=== PATIENT | male | born 1960 | race Caucasian/White ===

== ENCOUNTER → 2017-12-03 14:15 | Outpatient (REF) | payer BC, SELFPAY ==
[2017-12-03 17:59] LABS: Basophils % 0.3 % (0.1-2.0); Eosinophils # 0.1 K/mm3 (0.0-0.4); Eosinophils % 2.2 % (0.1-12.0); Hematocrit 53.3 % (42.0-52.0); Hemoglobin 17.4 g/dL (14.1-18.0); Lymphocytes # 2.2 K/mm3 (0.7-4.5); Lymphocytes % 33.7 K/mm3 (10-50); Mean Corpuscular HGB Conc 32.7 g/dL (31.8-35.4); Mean Corpuscular Hemoglobin 29.5 pg (27.0-31.2); Mean Corpuscular Volume 90.1 fl (80-94); Mean Platelet Volume 7.6 fl (7.4-10.4); Monocytes # 0.6 K/mm3 (0.1-1.0); Monocytes % 9.5 % (1.7-9.3); Neutrophils # 3.5 K/mm3 (1.8-7.8); Neutrophils % 54.3 % (37.0-80.0); Platelet Count 203 K/mm3 (142-424); Red Blood Count 5.91 M/mm3 (4.60-6.20); Red Cell Distribution Width 12.7 % (11.5-17.5); White Blood Count 6.5 K/mm3 (4.8-10.8)
[2017-12-03 18:24] LABS: Alanine Aminotransferase 183 U/L (12-78); Albumin Level 4.3 gm/dL (3.4-5.0); Albumin/Globulin Ratio 1.4 (1.1-1.8); Alkaline Phosphatase 76 U/L (46-116); Anion Gap 10.1 mEq/L (5-15); Aspartate Amino Transferase 108 U/L (15-37); Bilirubin,Total 0.8 mg/dL (0.2-1.0); Blood Urea Nitrogen 12 mg/dL (7-18); Calcium 8.8 mg/dL (8.5-10.1); Carbon Dioxide 29 mmol/L (21.0-32.0); Chloride 99 mmol/L (98-107); Chol/HDL Ratio 4.7 (1-3.5); Cholesterol 212 mg/dL (140-200); Creatinine,Serum 0.83 mg/dL (0.70-1.30); Estimated Glomerular Filt Rate 95 ml/min (>60); GFR (African American) 116 ML/MIN (>60); Globulin 3.1 gm/dl (1.3-3.2); Glucose 235 mg/dL (74-106); HDL Cholesterol 45 mg/dL (27-67); LDL Cholesterol 138 mg/dL (0-130); Potassium 4.1 mmoL/L (3.5-5.1); Sodium 134 mmol/L (136-145); T4 (Thyroxine) 9.9 ug/dl (4.7-13.3); Total Protein,Serum 7.4 gm/dL (6.4-8.2); Triglycerides 143 mg/dL (30-200); VLDL Cholesterol 29 mg/dL (0-40)
[2017-12-04 16:29] LABS: Hemoglobin A1C 9.7 % (0.0-7.0)
[2017-12-05 12:25] LABS: PSA, Free 0.11 ng/mL; Prostate Specific Ag 0.5 ng/mL (0.0-4.0); Vitamin D 25 Hydroxy 20.7 ng/mL (30.0-100.0)
[2017-12-07 02:13] LABS: Hep A Ab, IgM Negative (Negative); Hepatitis B Core Antibody IgM Negative (Negative); Hepatitis B Surface Antigen Negative (Negative)
[2017-12-07 11:42] LABS: Hepatitis C Antibody <0.1 s/co ratio (0.0-0.9)
== END ==
LOC: LAB 14:15
PROVIDERS: Visit Provider Physician Assistant
DX: R03.0 Elevated blood-pressure reading, without diagnosis of hypertension (principal); Z00.00 Encounter for general adult medical examination without abnormal findings
CPT/HCPCS: 80053; 80061; 80074; 82652; 83036; 84153; 84154; 84436; 84443; 85025

== ENCOUNTER → 2017-12-03 15:26 | Outpatient (CLI) | payer BC, SELFPAY | PROVIDERS: Visit Provider Physician Assistant | DX: R73.9 Hyperglycemia, unspecified (principal); R94.5 Abnormal results of liver function studies | CPT/HCPCS: 80074; 83036 ==

== ENCOUNTER → 2019-03-27 16:39 | Outpatient (CLI) | payer BC, SELFPAY ==
[2019-03-27 17:21] LABS: Basophils % 0.5 % (0.1-2.0); Eosinophils # 0.2 K/mm3 (0.0-0.4); Eosinophils % 3.5 % (0.1-12.0); Hematocrit 52.1 % (42.0-52.0); Hemoglobin 17.3 g/dL (14.1-18.0); Lymphocytes # 1.7 K/mm3 (0.7-4.5); Lymphocytes % 28.1 % (10-50); Mean Corpuscular HGB Conc 33.1 g/dL (31.8-35.4); Mean Corpuscular Hemoglobin 31.4 pg (27.0-31.2); Mean Corpuscular Volume 94.9 fl (80-94); Mean Platelet Volume 8.4 fl (7.4-10.4); Monocytes # 0.7 K/mm3 (0.1-1.0); Monocytes % 11.3 % (1.7-9.3); Neutrophils # 3.4 K/mm3 (1.8-7.8); Neutrophils % 56.7 % (37.0-80.0); Platelet Count 203 K/mm3 (142-424); Red Blood Count 5.49 M/mm3 (4.60-6.20); Red Cell Distribution Width 12.7 % (11.5-17.5)
[2019-03-27 17:31] LABS: Alanine Aminotransferase 82 U/L (12-78); Albumin Level 4.1 gm/dL (3.4-5.0); Albumin/Globulin Ratio 1.3 (1.1-1.8); Alkaline Phosphatase 57 U/L (46-116); Anion Gap 13.8 mEq/L (5-15); Aspartate Amino Transferase 41 U/L (15-37); Bilirubin,Total 0.5 mg/dL (0.2-1.0); Blood Urea Nitrogen 13 mg/dL (7-18); Calcium 9.1 mg/dL (8.5-10.1); Carbon Dioxide 27 mmol/L (21.0-32.0); Chloride 100 mmol/L (98-107); Chol/HDL Ratio 4.4 (1-3.5); Cholesterol 199 mg/dL (140-200); Creatinine,Serum 0.93 mg/dL (0.70-1.30); Estimated Glomerular Filt Rate 83 ml/min (>60); GFR (African American) 101 ML/MIN (>60); Globulin 3.1 gm/dl (1.3-3.2); Glucose 271 mg/dL (74-106); HDL Cholesterol 45 mg/dL (27-67); LDL Cholesterol 115 mg/dL (0-130); Potassium 4.8 mmoL/L (3.5-5.1); Sodium 136 mmol/L (136-145); T4 (Thyroxine) 10.3 ug/dl (4.7-13.3); Thyroid Stimulating Hormone 2.28 uIU/ml (0.358-3.740); Total Protein,Serum 7.2 gm/dL (6.4-8.2); Triglycerides 197 mg/dL (30-200); VLDL Cholesterol 39 mg/dL (0-40)
[2019-03-27 18:24] LABS: Hemoglobin A1C 7.9 % (0.0-7.0)
[2019-03-29 18:52] LABS: Vitamin D 25 Hydroxy 21.9 ng/mL (30.0-100.0)
== END ==
PROVIDERS: Visit Provider Nurse Practitioner Family
DX: E11.9 Type 2 diabetes mellitus without complications (principal); E55.9 Vitamin D deficiency, unspecified; Z79.84 Long term (current) use of oral hypoglycemic drugs
CPT/HCPCS: 80053; 80061; 82652; 83036; 84436; 84443; 85025

== ENCOUNTER → 2019-10-09 13:43 | Outpatient (CLI) | payer BC, SELFPAY ==
[2019-10-09 14:15] LABS: Basophils % 0.8 % (0.1-2.0); Eosinophils # 0.2 K/mm3 (0.0-0.4); Eosinophils % 3.2 % (0.1-12.0); Hematocrit 49.9 % (42.0-52.0); Hemoglobin 16.7 g/dL (14.1-18.0); Lymphocytes # 1.8 K/mm3 (0.7-4.5); Lymphocytes % 32.1 % (10-50); Mean Corpuscular HGB Conc 33.4 g/dL (31.8-35.4); Mean Corpuscular Hemoglobin 30.7 pg (27.0-31.2); Mean Platelet Volume 7.8 fl (7.4-10.4); Monocytes # 0.6 K/mm3 (0.1-1.0); Monocytes % 9.5 % (1.7-9.3); Neutrophils # 3.1 K/mm3 (1.8-7.8); Neutrophils % 54.6 % (37.0-80.0); Platelet Count 205 K/mm3 (142-424); Red Blood Count 5.42 M/mm3 (4.60-6.20); Red Cell Distribution Width 12.9 % (11.5-17.5); White Blood Count 5.8 K/mm3 (4.8-10.8)
[2019-10-09 14:44] LABS: Anion Gap 10.7 mEq/L (5-15); Blood Urea Nitrogen 15 mg/dl (9-20); Carbon Dioxide 29 mmol/L (22.0-30.0); Chloride 98 mmol/L (98-107); Potassium 4.7 mmoL/L (3.5-5.1); Sodium 133 mmol/L (136-145)
[2019-10-09 14:45] LABS: Alanine Aminotransferase 74 U/L (12-78); Albumin Level 4.9 g/dl (3.5-5.0); Alkaline Phosphatase 43 U/L (38-126); Aspartate Amino Transferase 53 U/L (17-59); Bilirubin,Total 0.9 mg/dl (0.2-1.3); Calcium 9.6 mg/dl (8.4-10.2); Chol/HDL Ratio 2.4 (1-3.5); Cholesterol 128 mg/dl (140-200); Estimated Glomerular Filt Rate 116 ml/min (>60); GFR (African American) 140 ML/MIN (>60); Globulin 2.4 g/dL (1.3-3.2); Glucose 206 mg/dl (74-100); HDL Cholesterol 53 mg/dl (40-60); Total Protein,Serum 7.3 g/dl (6.3-8.2); Triglycerides 84 mg/dl (30-150); VLDL Cholesterol 17 mg/dL (0-40)
[2019-10-09 14:57] LABS: Direct LDL Cholesterol 82.65 mg/dL (100-129)
[2019-10-09 15:01] LABS: T4 (Thyroxine) 10.5 ug/dl (5.53-11.0)
[2019-10-09 15:14] LABS: Thyroid Stimulating Hormone 2.74 uIU/mL (0.465-4.68)
[2019-10-09 15:57] LABS: Hemoglobin A1C 7.8 % (4.0-6.0)
[2019-10-10 11:21] LABS: Vitamin D 25 Hydroxy 64.9 ng/mL (30.0-100.0)
== END ==
PROVIDERS: Visit Provider Nurse Practitioner Family
DX: E11.9 Type 2 diabetes mellitus without complications (principal); Z79.84 Long term (current) use of oral hypoglycemic drugs
CPT/HCPCS: 80053; 80061; 82652; 83036; 84436; 84443; 85025

== ENCOUNTER → 2020-09-03 13:50 | Outpatient (CLI) | payer BC, SELFPAY ==
[2020-09-03 14:15] LABS: Basophils % 0.6 % (0.1-2.0); Eosinophils # 0.2 K/mm3 (0.0-0.4); Eosinophils % 2.9 % (0.1-12.0); Hematocrit 50.7 % (42.0-52.0); Hemoglobin 16.7 g/dL (14.1-18.0); Lymphocytes # 2.2 K/mm3 (0.7-4.5); Lymphocytes % 32.7 % (10-50); Mean Corpuscular HGB Conc 32.9 g/dL (31.8-35.4); Mean Corpuscular Hemoglobin 29.9 pg (27.0-31.2); Mean Corpuscular Volume 91.1 fl (80-94); Mean Platelet Volume 7.4 fl (7.4-10.4); Monocytes # 0.8 K/mm3 (0.1-1.0); Monocytes % 11.8 % (1.7-9.3); Neutrophils # 3.4 K/mm3 (1.8-7.8); Neutrophils % 51.9 % (37.0-80.0); Platelet Count 208 K/mm3 (142-424); Red Blood Count 5.57 M/mm3 (4.60-6.20); Red Cell Distribution Width 12.7 % (11.5-17.5); White Blood Count 6.6 K/mm3 (4.8-10.8)
[2020-09-03 14:22] LABS: Alanine Aminotransferase 91 U/L (12-78); Albumin/Globulin Ratio 1.7 (1.1-1.8); Alkaline Phosphatase 63 U/L (38-126); Anion Gap 14.1 mEq/L (5-15); Aspartate Amino Transferase 52 U/L (17-59); Bilirubin,Total 0.8 mg/dl (0.2-1.3); Blood Urea Nitrogen 14 mg/dl (9-20); Carbon Dioxide 29 mmol/L (22.0-30.0); Chloride 101 mmol/L (98-107); Chol/HDL Ratio 2.8 (1-3.5); Cholesterol 153 mg/dl (140-200); Estimated Glomerular Filt Rate 99 ml/min (>60); GFR (African American) 120 ML/MIN (>60); Globulin 2.9 g/dL (1.3-3.2); Glucose 144 mg/dl (74-100); HDL Cholesterol 54 mg/dl (40-60); Potassium 5.1 mmoL/L (3.5-5.1); Sodium 139 mmol/L (136-145); Total Protein,Serum 7.9 g/dl (6.3-8.2); Triglycerides 158 mg/dl (30-150); VLDL Cholesterol 32 mg/dL (0-40)
[2020-09-03 14:32] LABS: Hemoglobin A1C 8.2 % (4.0-6.0)
[2020-09-03 14:33] LABS: Direct LDL Cholesterol 78.83 mg/dL (100-129)
[2020-09-03 14:53] LABS: Prostate Specific Ag Screen 0.5 ng/ml (0.0-4.0)
== END ==
PROVIDERS: Visit Provider Family Medicine
DX: E11.9 Type 2 diabetes mellitus without complications (principal); E55.9 Vitamin D deficiency, unspecified; Z12.5 Encounter for screening for malignant neoplasm of prostate; Z79.84 Long term (current) use of oral hypoglycemic drugs
CPT/HCPCS: 80053; 80061; 83036; 85025; G0103

== ENCOUNTER → 2021-11-08 07:12 | Outpatient (CLI) | payer BC, SELFPAY ==
[2021-11-07 17:17] LABS: Chloride 99 mmol/L (98-107)
[2021-11-07 17:18] LABS: Basophils # 0.2 K/mm3 (0-0.2); Basophils % 2.3 % (0.1-2.0); Eosinophils # 0.2 K/mm3 (0.0-0.4); Eosinophils % 3.2 % (0.1-12.0); Hematocrit 47.8 % (42.0-52.0); Hemoglobin 16.3 g/dL (14.1-18.0); Lymphocytes # 1.8 K/mm3 (0.7-4.5); Lymphocytes % 26.7 % (10-50); Mean Corpuscular HGB Conc 34.1 g/dL (31.8-35.4); Mean Corpuscular Volume 91.1 fl (80-94); Mean Platelet Volume 7.2 fl (7.4-10.4); Monocytes # 0.7 K/mm3 (0.1-1.0); Monocytes % 10.3 % (1.7-9.3); Neutrophils # 3.8 K/mm3 (1.8-7.8); Neutrophils % 57.5 % (37.0-80.0); Platelet Count 179 K/mm3 (142-424); Potassium 4.4 mmoL/L (3.5-5.1); Red Blood Count 5.25 M/mm3 (4.60-6.20); Red Cell Distribution Width 13.5 % (11.5-17.5); Sodium 135 mmol/L (136-145); White Blood Count 6.7 K/mm3 (4.8-10.8)
[2021-11-07 17:20] LABS: Alanine Aminotransferase 85 U/L (12-78); Alkaline Phosphatase 45 U/L (38-126); Anion Gap 12.4 mEq/L (5-15); Aspartate Amino Transferase 47 U/L (17-59); Bilirubin,Total 0.7 mg/dl (0.2-1.3); Blood Urea Nitrogen 13 mg/dl (9-20); Carbon Dioxide 28 mmol/L (22.0-30.0); Estimated Glomerular Filt Rate 86 ml/min (>60); GFR (African American) 104 ML/MIN (>60)
[2021-11-07 17:21] LABS: Albumin Level 4.5 g/dl (3.5-5.0); Albumin/Globulin Ratio 1.8 (1.1-1.8); Calcium 9.7 mg/dl (8.4-10.2); Chol/HDL Ratio 2.7 (1-3.5); Cholesterol 146 mg/dl (140-200); Globulin 2.5 g/dL (1.3-3.2); Glucose 125 mg/dl (74-100); HDL Cholesterol 55 mg/dl (40-60); Triglycerides 118 mg/dl (30-150); VLDL Cholesterol 24 mg/dL (0-40)
[2021-11-07 17:46] LABS: Direct LDL Cholesterol 76.14 mg/dL (100-129)
[2021-11-07 17:59] LABS: Hemoglobin A1C 7.5 % (4.0-6.0)
== END ==
PROVIDERS: PCP Family Medicine; Visit Provider Family Medicine
DX: E11.9 Type 2 diabetes mellitus without complications (principal); Z79.84 Long term (current) use of oral hypoglycemic drugs
CPT/HCPCS: 80053; 80061; 83036; 85025

== ENCOUNTER → 2022-08-08 15:26 | Outpatient (CLI) | payer BC, SELFPAY ==
--- NOTE | 2022-08-08 15:29 | XR_ITS ---
FINAL REPORT CLINICAL HISTORY: dyspnea FINDINGS: Two views of the chest were obtained. The heart size and pulmonary vascularity are within normal limits. The mediastinum is normal. No acute pulmonary abnormality is identified. There is no pneumothorax. The bony thorax is intact. IMPRESSION: No active cardiopulmonary disease. Reviewed, Interpreted and Dictated by Saturnino Hunter III, MD Transcribed by Maxine Griffith Authenticated and . [facility]
== END ==
PROVIDERS: PCP Family Medicine; Visit Provider Student in an Organized Health Care Education/Training Program
DX: R06.00 Dyspnea, unspecified (principal); R05.9 Cough, unspecified
CPT/HCPCS: 71046

== ENCOUNTER 2022-09-16 21:30 | Inpatient (IN) | payer BC, SELFPAY ==
[2022-09-16 21:32] VITALS: BP 159/106; PULSE 138; RESP 22; TEMP 36.8; O2SAT 99; BMI 32.8
--- NOTE | 2022-09-16 21:39 | HMH.EDSOB ---
Discharge Plan Disposition Patient Disposition: Admitted as Observation Clinical Impressions Clinical Impression: Atrial flutter with rapid ventricular response Discharge ED Provider: Julieta Null Resp/SOB HPI General Chief Complaint: Arrhythmia/Palpitations Stated Complaint: SOA Time Seen by Provider: 09/16/22 21:40 Mode of Arrival: Family Vehicle History of Present Illness The patient presents to the emergency department complaining of shortness of breath with exertion for several days. He states that today it has gotten worse. In the past this was intermittent now it has been constant for several hours. He denies any chest pain. He states that he has a follow-up appointment with the local fund manager Dr. Abdul for a stress test this upcoming week. MD Complaint: shortness of breath Related Data Home Medications Medication Instructions Recorded Confirmed aspirin 81 mg tablet,delayed See Rx Instructions .Route 09/16/22 09/16/22 release .COMPLEX Blood thinner atorvastatin 10 mg tablet See Rx Instructions .Route 09/16/22 09/16/22 .COMPLEX High cholesterol blood sugar diagnostic (Blood 09/16/22 09/16/22 Glucose Test strips) blood-glucose meter (Blood Glucose 09/16/22 09/16/22 Monitoring kit) lancets 30 gauge and blood glucose 09/16/22 09/16/22 strips combo pack linagliptin 5 mg tablet (Tradjenta) 5 mg PO DAILY Diabetes 09/16/22 09/16/22 lisinopril 20 mg tablet 20 mg PO DAILY High blood pressure 09/16/22 09/16/22 metformin 1,000 mg tablet See Rx Instructions .Route 09/16/22 09/16/22 .COMPLEX Diabetes Allergies Allergy/AdvReac Type Severity Reaction Status Date / Time No Known Allergies Allergy Verified 08/08/22 14:50 [facility] Disclaimer: The information contained in this section may have been updated after the patient was seen, as this information can be updated by other users. Medical History Diabetes (~12/06/17) Vitamin D deficiency (~12/06/17) Social History Smoking Status: Former smoker alcohol intake: current substance use type: denies use current occupational status: employed Travel in the last 8 weeks: None ROS Obtained: Yes All systems reviewed & no additional complaints except as documented Physical Exam General General appearance: alert Head Head exam: atraumatic Eye Eye exam: Present normal appearance ENT ENT exam: Present normal exam Neck Neck exam: Present normal inspection and full ROM; Absent tenderness or meningismus Chest Chest inspection: Present normal inspection and symmetric chest wall rise; Absent tenderness Respiratory Respiratory exam: Present normal lung sounds bilaterally; Absent respiratory distress or accessory muscle use Cardiovascular Cardiovascular exam: Present regular rate, normal rhythm, tachycardia and normal heart sounds Abdominal Exam Abdominal exam: Present soft and normal bowel sounds; Absent distention, tenderness, heel tap sign, Waterman's sign, Rovsing's sign, tenderness at McBurney's Point or mass Extremities Exam Extremities exam: Present normal inspection and full ROM; Absent calf tenderness Back Exam Back exam: Present normal inspection; Absent CVA tenderness (R) or CVA tenderness (L) Neurological Exam Neurological exam: Present alert and oriented X3 Psychiatric Psychiatric exam: Present normal affect and normal mood Skin Skin exam: Present warm, dry, intact and normal color Medical Decision Making Kenneth Inquiry Pt receiving controlled substance: No Vital Signs: 09/16/22 21:32 09/16/22 22:00 09/16/22 22:30 Temperature 98.3 F Temperature Source Oral Pulse Rate 141 H 142 H Pulse Rate [Right] 138 H Respiratory Rate 22 20 22 Blood Pressure 131/92 H 136/92 H Blood Pressure [Right Arm] 159/106 H Blood Pressure Mean [Right Arm] 123 Blood Pressure Source [Right Arm] Automatic Cuff
--- NOTE | 2022-09-16 21:40 | ECG_ITS ---
APPROVED REPORT Exam: Resting ECG HR:139 bpm ECG Measurements Heart Rate 139 AXES QRSd 137 QRS 69 QT 270 T 11 QTc 351 Conclusion ATRIAL FLUTTER/TACHYCARDIA WITH RAPID VENTRICULAR RESPONSE INTRAVENTRICULAR CONDUCTION DELAY [130+ ms QRS DURATION] ABNORMAL ECG UNCONFIRMED REPORT Electronically signed by : Alvarez Sow MD 09/17/2022 09:05:00
--- NOTE | 2022-09-16 21:40 | XR_ITS ---
PROCEDURE INFORMATION: Exam: XR Chest Exam date and time: 09/16/2022 10:03 PM Age: 61 years old Clinical indication: Dyspnea TECHNIQUE: Imaging protocol: Radiologic exam of the chest. Views: 1 view. COMPARISON: CR XR CHEST 2V 08/08/2022 3:30 PM FINDINGS: Lungs: Unremarkable. No consolidation. Pleural spaces: Unremarkable. No pleural effusion. No pneumothorax. Heart/Mediastinum: Unremarkable. No cardiomegaly. Bones/joints: Unremarkable. IMPRESSION: No acute findings.
[2022-09-16 21:54] LABS: Basophils % 0.4 % (0.1-2.0); Eosinophils # 0.2 K/mm3 (0.0-0.4); Eosinophils % 2.1 % (0.1-12.0); Hematocrit 45.9 % (42.0-52.0); Hemoglobin 15.4 g/dL (14.1-18.0); Lymphocytes # 2.8 K/mm3 (0.7-4.5); Lymphocytes % 36.5 % (10-50); Mean Corpuscular HGB Conc 33.6 g/dL (31.8-35.4); Mean Corpuscular Volume 89.4 fl (80-94); Mean Platelet Volume 7.5 fl (7.4-10.4); Monocytes # 0.8 K/mm3 (0.1-1.0); Monocytes % 9.6 % (1.7-9.3); Neutrophils % 51.4 % (37.0-80.0); Platelet Count 200 K/mm3 (142-424); Red Blood Count 5.14 M/mm3 (4.60-6.20); Red Cell Distribution Width 13.2 % (11.5-17.5); White Blood Count 7.8 K/mm3 (4.8-10.8)
[2022-09-16 21:55] LABS: Chloride 101 mmol/L (98-107); Potassium 4.2 mmoL/L (3.5-5.1); Sodium 139 mmol/L (136-145)
[2022-09-16 21:58] LABS: Blood Urea Nitrogen 15 mg/dl (9-20); Creatinine Clearance Estimated 110 mL/min (50-200); Estimated Glomerular Filt Rate 98 ml/min (>60); GFR (African American) 119 ML/MIN (>60)
[2022-09-16 21:59] LABS: Anion Gap 18.2 mEq/L (5-15); Carbon Dioxide 24 mmol/L (22.0-30.0); Glucose 157 mg/dl (74-100)
[2022-09-16 22:00] VITALS: BP 131/92; PULSE 141; RESP 20; O2SAT 97
[2022-09-16 22:08] LABS: NT Pro Brain Natriuretic Pep. 518 pg/mL (0-125)
[2022-09-16 22:11] LABS: Troponin I 0.02 ng/ml (0.00-0.034)
[2022-09-16 22:11] LABS: Coronavirus 19, PCR Not Detected (NotDetected); Influenza A, PCR Not Detected (NotDetected); Influenza B, PCR Not Detected (NotDetected)
--- NOTE | 2022-09-16 22:12 | PC.NURSE ---
Covid swab sent to Lab @ 9190. It has not been recevieid by the lab, s/w Jacinda who states it is being run at this time. 20 min left.
[2022-09-16 22:17] LABS: Activated Partial Thrombo Time 22.7 seconds (22.8-30.6); INR 0.96 (0.9-1.1); Prothrombin Time 10.4 seconds (10.1-12.5)
[2022-09-16 22:30] VITALS: BP 136/92; PULSE 142; RESP 22; O2SAT 96
[2022-09-16 22:35] LABS: T4 (Thyroxine) 8.8 ug/dl (5.53-11.0)
--- NOTE | 2022-09-16 22:40 | PC.NURSE ---
@ 0 - Pt's HR continues to be about 140s. He ordered for the pt to receive a Cardizem 5 mg bolus and increase cardizem gtt to 10mg. @ 2239- gave cardizem bolus and titrated gtt to 10mg/hr. Pt & spouse updated on this.
[2022-09-16 23:00] VITALS: BP 108/80; PULSE 134; RESP 16; O2SAT 95
[2022-09-16 23:13] LABS: Free Thyroxine Index 2.6 ug/dL (5.93-13.13); Triiodothryronine (T3) Uptake 30 % (23.5-40.5)
[2022-09-17] VITALS (23 sets, daily range): BP systolic 104–153; BP diastolic 59–96; PULSE 106–135; RESP 16–21; TEMP 36.6–36.8; O2SAT 93–98; BMI 33.5
--- NOTE | 2022-09-17 00:30 | PC.NURSE ---
Titrated cardizem gtt to 15mg/hr immediately after giving 5 mg bolus per MD.
--- NOTE | 2022-09-17 01:00 | PC.NURSE ---
Second trop drawn and sent to lab
--- NOTE | 2022-09-17 01:15 | PC.NURSE ---
Dr. Null speaking with hospitalist, Marcin, about possible pt admission
--- NOTE | 2022-09-17 01:20 | PC.NURSE ---
Called ammunition supervisor for bed assignment.
--- NOTE | 2022-09-17 01:25 | PC.NURSE ---
Hospitalist, Marcin, at BS
[2022-09-17 01:26] LABS: Troponin I 0.02 ng/ml (0.00-0.034)
--- NOTE | 2022-09-17 01:36 | PC.NURSE ---
Gave report to Kriss Fraire RN
--- NOTE | 2022-09-17 01:36 | EXP.HP ---
History of Present Illness *Admission Date: 09/17/22 *Reason for visit:: Palpitations, Shortness of air *History of present illness: Mr. Edmond is a 61-year-old male with a past medical history of DM, HTN, Hyperlipidemia. He presents to with a 2-month history of shortness of air with exertion, chest pressure and palpitations, worsening over the last 24 hours. He reports that his symptoms originally began approximately 2 months ago with extreme shortness of air with activity, he reports that it was associated with chest pressure. He went to see his PCP and is scheduled for follow-up with [facility] [employer] and to have stress testing this upcoming 09/21/22. He reports that today his symptoms became severe and were also associated with dizziness and near syncope, he came into the ER for evaluation. In the ER, the patient underwent an EKG that showed atrial flutter with HR 139. Troponin was 0.02 x 2 readings. BNP was 518. TSH and Free T4 were 9.10 and 4.26. CBC and CMP were unremarkable. Chest xray showed no acute findings. In the ER, the patient received Cardizem bolus and drip with improvement of HR to 124. The patient was admitted with initial impression: Atrial Flutter with rapid ventricular response. [facility] Disclaimer: The information contained in this section may have been updated after the patient was seen, as this information can be updated by other users. Medical History Anal fistula Diabetes (~12/06/17) Hyperlipidemia Hypertension Vitamin D deficiency (~12/06/17) Family History (Updated 09/17/22 @ 02:09 by Kriss Fraire RN) Other Family history of acute congestive heart failure Family history of diabetes mellitus type II Family history of hyperlipidemia Family history of hypertension Family history of myocardial infarction Family history of stroke Social History (Updated 09/17/22 @ 02:09 by Kriss Fraire RN) Smoking Status: Former smoker alcohol intake: current substance use type: denies use current occupational status: employed Travel in the last 8 weeks: None Review of Systems Review of Systems Review of systems:: pertinent systems reviewed and negative unless documented below Constitutional Constitutional: Reports system reviewed and no additional complaints, except as documented Eyes Eyes: Reports system reviewed and no additional complaints, except as documented ENT Ears, Nose, Mouth, and Throat: Reports system reviewed and no additional complaints, except as documented and Reports dizziness *Cardiovascular Cardiovascular: Reports chest pain, Reports dyspnea, Reports dyspnea on exertion and Reports palpitations *Respiratory Respiratory: Reports dyspnea and Reports dyspnea on exertion *Gastrointestinal Gastrointestinal: Reports system reviewed and no additional complaints, except as documented *Genitourinary Genitourinary: Reports system reviewed and no additional complaints, except as documented *Musculoskeletal Musculoskeletal: Reports system reviewed and no additional complaints, except as documented Integumentary/Breasts Skin/Breast: Reports system reviewed and no additional complaints, except as documented *Neurologic Neurologic: Reports dizziness Psychiatric Psychiatric: Reports system reviewed and no additional complaints, except as documented Endocrine Endocrine: Reports system reviewed and no additional complaints, except as documented and Reports palpitations Hematologic/Lymphatic Hematologic/Lymphatic: Reports system reviewed and no additional complaints, except as documented Allergic/Immunologic Allergic/Immunologic: Reports system reviewed and no additional complaints, except as documented Meds Home Medications and Allergies Home Medications Medication Instructions Recorded Confirmed Type aspirin 81 mg tablet,delayed See Rx Instructions .Route 09/16/22 09/16/22 History release .COMPLEX
--- NOTE | 2022-09-17 01:54 | PC.NURSE ---
PT ARRIVED TO FLOOR BY WHEELCHAIR BY NURSE AT 1:48
[2022-09-17 02:21] LABS: D-Dimer 0.58 ug/mL (0.0-0.5)
--- NOTE | 2022-09-17 04:23 | PC.NURSE ---
NO ACUTE CHANGES SINCE PT ARRIVED TO THE FLOOR. PT IS RESTING COMFORTABLY.NO C/O PAIN OR SOB. VSS. REMAINS AFEBRILE. REMAINS IN A FLUTTER ON TELE. DILT DRIP IS AT 15MLS/HR. HEPARIN DRIP IS AT 1000 UNITS/HR. CALL VALENZUELA WITHIN REACH.
[2022-09-17 05:43] LABS: POC Glucose,Bedside 156 (70-110)
[2022-09-17 08:22] LABS: Chloride 101 mmol/L (98-107); Potassium 4.3 mmoL/L (3.5-5.1); Sodium 136 mmol/L (136-145)
[2022-09-17 08:25] LABS: Alanine Aminotransferase 136 U/L (12-78); Albumin Level 4.5 g/dl (3.5-5.0); Albumin/Globulin Ratio 1.6 (1.1-1.8); Alkaline Phosphatase 51 U/L (38-126); Anion Gap 16.3 mEq/L (5-15); Aspartate Amino Transferase 76 U/L (17-59); Bilirubin,Total 0.9 mg/dl (0.2-1.3); Blood Urea Nitrogen 11 mg/dl (9-20); Calcium 8.9 mg/dl (8.4-10.2); Carbon Dioxide 23 mmol/L (22.0-30.0); Creatinine Clearance Estimated 113 mL/min (50-200); Estimated Glomerular Filt Rate 115 ml/min (>60); GFR (African American) 139 ML/MIN (>60); Globulin 2.8 g/dL (1.3-3.2); Glucose 183 mg/dl (74-100); Total Protein,Serum 7.3 g/dl (6.3-8.2)
--- NOTE | 2022-09-17 08:55 | HMH.PHAHEP ---
[facility] Pharmacy Heparin Dosing Demographic Data Admission date:: 09/17/22 Date: 09/17/22 Time: 08:55 Allergies Allergy/AdvReac Type Severity Reaction Status Date / Time No Known Allergies Allergy Verified 08/08/22 14:50 Height: 1.75 m Weight: 102.603 kg Indication Medication therapy:: Heparin Current Indications:: A FIB Current Active Problems (Updated 09/17/22 @ 02:09 by Kriss Fraire RN) Atrial flutter with rapid ventricular response (Acute) Atrial flutter with rapid ventricular response (Acute) Hypertension (Acute) Diabetes (Acute) Hyperlipidemia (Acute) CVA?: No Bleeding problem?: No Kidney disease?: No AL?: No Additional History:: DIABETES, ATRIAL FLUTTER, HYPERTENSION, HYPERLIPIDEMIA Desired PTT range:: 50-75 seconds Labs Anticoagulation Lab Results:: 09/16/22 21:41 Hgb 15.4 Hct 45.9 Plt Count 200 Monitoring Dose Monitor 1: Date: 09/17/22 Time: 02:30 PTT Result:: 10.4 SECONDS (BASELINE) Infusion Rate:: [facility] STARTED DRIP AT 1000 UNITS/HOUR = 20 ML/HOUR AND GAVE BOLUS OF 4000 UNITS HEPARIN IV ONCE. Comment:: DRIP STOPPED AT 0841 AND PATIENT STARTED ON XARELTO. Core Measures Is INR > or = 2 at discharge?: No Most Recent Labs:: Laboratory Results - last 24 hr 09/16/22 21:41: Sodium 139, Potassium 4.2, Chloride 101, Carbon Dioxide 24, Anion Gap 18.2 H, BUN 15, Creatinine 0.80, Estimated Creat Clear 110, Estimated GFR 98, Est GFR ( Amer) 119, Glucose 157 H, Calcium 9.0, Troponin I 0.02, NT-Pro-B Natriuret Pep 518 H 09/16/22 21:41: TSH 9.10 H, Free T4 Index 2.6 L, Thyroxine (T4) 8.8, T3 Uptake 30 09/16/22 21:41: WBC 7.8, RBC 5.14, Hgb 15.4, Hct 45.9, MCV 89.4, MCH 30.0, MCHC 33.6, RDW 13.2, Plt Count 200, MPV 7.5, Neut % (Auto) 51.4, Lymph % (Auto) 36.5, [place] % (Auto) 9.6 H, Eos % (Auto) 2.1, Baso % (Auto) 0.4, Neut # (Auto) 4.0, Lymph # (Auto) 2.8, [place] # (Auto) 0.8, Eos # (Auto) 0.2, Baso # (Auto) 0.0 09/16/22 21:41: PT 10.4, INR 0.96, APTT 22.7 L 09/16/22 21:41: D-Dimer 0.58 H 09/16/22 22:06: SARS-CoV-2 (PCR) Not detected, Influenza A Untype (PCR) Not detected, Influenza Type B (PCR) Not detected 09/17/22 01:00: Troponin I 0.02 09/17/22 05:34: POC Glucose 156 H 09/17/22 07:45: Sodium 136, Potassium 4.3, Chloride 101, Carbon Dioxide 23, Anion Gap 16.3 H, BUN 11 D, Creatinine 0.70, Estimated Creat Clear 113, Estimated GFR 115, Est GFR ( Amer) 139, Glucose 183 H, Calcium 8.9, Total Bilirubin 0.9, AST 76 H, ALT 136 H, Alkaline Phosphatase 51, Total Protein 7.3, Albumin 4.5, Globulin 2.8, Albumin/Globulin Ratio 1.6 If INR was < than 2.0 why was therapy stopped?: PATIENT STARTED ON XARELTO Were Heparin and Warfarin started on the same day?: No If not, why?: PATIENT STARTED ON XARELTO
[2022-09-17 09:19] LABS: PTT Heparin (inpatient only) 31.6 Seconds (23.6-34.0)
--- NOTE | 2022-09-17 09:40 | HMH.PHAINT1 ---
Pharmacy Intervention Comments: MEDICATION RECONCILIATION COMPLETE USING LIST FROM MOST RECENT MD OFFICE VISIT (08/2022) AND EXTERNAL PHARMACY FILL HISTORY.
--- NOTE | 2022-09-17 09:49 | PC.NURSE ---
pt walked to bathroom and walked back with assist with iv poles.
[2022-09-17 15:25] LABS: POC Glucose,Bedside 168 (70-110)
--- NOTE | 2022-09-17 17:00 | PC.NURSE ---
PT IS SITTING UP IN THE CHAIR VISITING WITH FAMILY. ALERT AND ORIENTED X4. UNCONTROLLED AFIB/FLUTTER ON TELEMETRY. HR HAS BEEN 115-130 T/O THE SHIFT. PT HAS HAD 3 DOSES OF LOPRESSOR AND 1 DOSE OF IV DIGOXIN THIS SHIFT ORDERED PER HOSPITALIST. PT HAS AMBULATED TO THE BATHROOM. HEPARIN DRIP STOPPED THIS AFTERNOON AND PT WAS SWITCHED OVER TO XARELTO. PT WILL BE NPO AFTER MIDNIGHT FOR AC TOMORROW. LUNG SOUNDS CLEAR. ABDOMEN SOFT/NON TENDER WITH ACTIVE BOWEL SOUNDS. WILL CONTINUE TO MONITOR.
[2022-09-17 17:01] LABS: POC Glucose,Bedside 132 (70-110)
--- NOTE | 2022-09-17 18:45 | EXP.EVENT.NO ---
Patient now receiving 50 mg p.o. Lopressor every 6 hours. Gave digoxin 500 IV around 1300, will follow-up with 125 digoxin tonight and then daily. He is getting a AC cardioversion tomorrow.
[2022-09-17 22:17] LABS: POC Glucose,Bedside 173 (70-110)
[2022-09-18] VITALS (12 sets, daily range): BP systolic 116–158; BP diastolic 66–99; PULSE 100–136; RESP 12–20; TEMP 36.4–37.1; O2SAT 91–97; BMI 32.8; BMI 32.6
[2022-09-18 07:06] LABS: Chloride 97 mmol/L (98-107); Potassium 4.7 mmoL/L (3.5-5.1); Sodium 135 mmol/L (136-145)
[2022-09-18 07:09] LABS: Alanine Aminotransferase 148 U/L (12-78); Albumin Level 4.2 g/dl (3.5-5.0); Albumin/Globulin Ratio 1.6 (1.1-1.8); Alkaline Phosphatase 44 U/L (38-126); Anion Gap 11.7 mEq/L (5-15); Aspartate Amino Transferase 100 U/L (17-59); Blood Urea Nitrogen 13 mg/dl (9-20); Calcium 8.5 mg/dl (8.4-10.2); Carbon Dioxide 31 mmol/L (22.0-30.0); Creatinine Clearance Estimated 110 mL/min (50-200); Estimated Glomerular Filt Rate 98 ml/min (>60); GFR (African American) 119 ML/MIN (>60); Globulin 2.6 g/dL (1.3-3.2); Glucose 187 mg/dl (74-100); Phosphorous 3.5 mg/dl (2.5-4.5); Total Protein,Serum 6.8 g/dl (6.3-8.2)
[2022-09-18 07:10] LABS: Basophils % 0.4 % (0.1-2.0); Eosinophils # 0.2 K/mm3 (0.0-0.4); Hematocrit 50.8 % (42.0-52.0); Hemoglobin 16.5 g/dL (14.1-18.0); Lymphocytes % 30.2 % (10-50); Magnesium 2.1 mg/dl (1.6-2.3); Mean Corpuscular HGB Conc 32.5 g/dL (31.8-35.4); Mean Corpuscular Volume 92.3 fl (80-94); Mean Platelet Volume 7.7 fl (7.4-10.4); Monocytes # 0.6 K/mm3 (0.1-1.0); Monocytes % 9.1 % (1.7-9.3); Neutrophils # 3.9 K/mm3 (1.8-7.8); Neutrophils % 57.2 % (37.0-80.0); Platelet Count 181 K/mm3 (142-424); Red Blood Count 5.51 M/mm3 (4.60-6.20); Red Cell Distribution Width 13.2 % (11.5-17.5); White Blood Count 6.8 K/mm3 (4.8-10.8)
[2022-09-18 07:44] LABS: POC Glucose,Bedside 189 (70-110)
--- NOTE | 2022-09-18 08:54 | PC.NURSE ---
Spoke with [facility] and verbal order given to give 2.5 mg IVP Lopressor and to repeat in 5 minutes if no changes. Metoprolol po changed to 50 mg.
--- NOTE | 2022-09-18 08:54 | CT_ITS ---
FINAL REPORT TECHNIQUE: Postcontrast axial images of the chest were performed in a CTA protocol. This study was performed with techniques to keep radiation doses as low as reasonably achievable, (ALARA). Individualized dose reduction technique using automated exposure control or adjustment of mA and/or kV according to the patient's size were employed. CLINICAL HISTORY: elevated d dimer, soa, palpitations FINDINGS: There is diffuse esophageal wall thickening which is nonspecific, favor inflammatory. The heart is normal in size. No adenopathy is identified. No pleural or pericardial effusion is identified. The thoracic aorta is normal in caliber with no focal aneurysm or dissection identified. There is no filling defect to suggest pulmonary embolism. No lung infiltrate or mass is identified. There is a calcified granuloma at the left lung base. The images of the upper abdomen demonstrate 2, small, nonspecific masses in the medial segment of the left hepatic lobe which may represent cysts. IMPRESSION: No evidence for PE on this exam. Diffuse esophageal wall thickening, nonspecific, favor inflammatory. Reviewed, Interpreted and Dictated by Saturnino Hunter III, MD Transcribed by Tricia Palencia Authenticated and [facility]
--- NOTE | 2022-09-18 09:20 | PC.NURSE ---
verbal order given per Dr. Titus that pt's does not have to be NPO now and may have breakfast tray.
--- NOTE | 2022-09-18 09:56 | EXP.ACUTE.PN ---
Subjective *Date: 09/18/22 *Time: 17:42 Interval history: Still having A-fib overnight. Patient felt somewhat better this morning after receiving IV dose of metoprolol. Denies any chest pain, dyspnea, nausea, vomiting. Ambulating independently. Afebrile. Medical Exam Vital signs and Labs for Last 24 Hours: Vital Signs Temp Pulse Pulse Resp BP Pulse Ox 09/18/22 09:11 135 H 09/18/22 08:00 97.9 F 09/18/22 04:00 98.8 F 122 H 18 119/84 96 09/18/22 04:00 128 H 97 09/18/22 04:00 120 H 09/17/22 20:00 120 H 09/18/22 00:00 130 H 09/18/22 02:00 131 H 12 158/97 H 91 L 09/18/22 00:00 98.3 F 129 H 15 123/84 95 09/17/22 22:00 128 H 20 124/86 97 09/17/22 21:05 120 H 09/17/22 20:00 120 H 96 09/17/22 20:00 98.0 F 124 H 18 134/81 98 09/17/22 18:00 114 H 16 104/74 L 96 09/17/22 16:00 120 H 09/17/22 16:00 122 H 20 144/77 H 97 09/17/22 15:26 97.9 F 09/17/22 15:00 128 H 20 153/83 H 97 09/17/22 14:13 132 H 09/17/22 14:00 132 H 16 129/77 97 09/17/22 12:00 120 H 09/17/22 13:00 135 H 18 111/76 97 09/17/22 12:00 124 H 20 135/96 H 97 09/17/22 11:22 98.1 F 09/17/22 10:00 106 H 18 117/59 L 95 Intake and Output 09/17/22 09/18/22 09/18/22 23:59 07:59 15:59 Intake Total 360 / 1080 240 / 240 Output Total 400 / 400 Balance 360 / 880 -400 / -160 240 / -160 Intake: Intake, Oral Amount 360 / 1080 240 / 240 Output: Output, Urine Amount 400 / 400 Other: Number of Unmeasured Voids 1 Weight 100.698 kg Patient Weight 09/18/22 23:59 Weight 100.698 kg Laboratory Results - last 24 hr 09/17/22 11:26: POC Glucose 168 H 09/17/22 16:49: POC Glucose 132 H 09/17/22 21:06: POC Glucose 173 H 09/18/22 05:57: WBC 6.8, RBC 5.51, Hgb 16.5, Hct 50.8, MCV 92.3, MCH 30.0, MCHC 32.5, RDW 13.2, Plt Count 181, MPV 7.7, Neut % (Auto) 57.2, Lymph % (Auto) 30.2, [place] % (Auto) 9.1, Eos % (Auto) 3.0, Baso % (Auto) 0.4, Neut # (Auto) 3.9, Lymph # (Auto) 2.0, [place] # (Auto) 0.6, Eos # (Auto) 0.2, Baso # (Auto) 0.0 09/18/22 05:57: Sodium 135 L, Potassium 4.7, Chloride 97 L, Carbon Dioxide 31 H, Anion Gap 11.7, BUN 13, Creatinine 0.80, Estimated Creat Clear 110, Estimated GFR 98, Est GFR ( Amer) 119, Glucose 187 H, Calcium 8.5, Phosphorus 3.5, Magnesium 2.1, Total Bilirubin 1.0, AST 100 H D, ALT 148 H, Alkaline Phosphatase 44, Total Protein 6.8, Albumin 4.2, Globulin 2.6, Albumin/Globulin Ratio 1.6 09/18/22 06:01: POC Glucose 189 H I & O for Labs for Last 24 Hours: Intake & Output 09/15/22 09/16/22 09/17/22 09/18/22 23:59 23:59 23:59 23:59 Intake Total 1080 / 1080 240 / 240 Output Total 0 / 200 400 / 400 Balance 1080 / 880 -160 / -160 Weight 100.698 kg 102.603 kg 100.698 kg Constitutional: Present no acute distress and obese Head: Present atraumatic and normocephalic Respiratory: Present normal respiratory effort; Absent accessory muscle use, rhonchi, wheezes or crackles Cardiac: Present Tachycardia Comment:: Irregularly irregular GI: Present soft and normal bowel sounds; Absent distention or tenderness Extremities: Present normal inspection and full ROM; Absent edema Skin: Present intact; Absent erythema Neuro: Present Cranial Nerve 2-12 Intact, Grossly Intact, alert, awake, oriented x 3 and moves all extremities Assessment and Plan *Assessment and plan (1) Atrial flutter with rapid ventricular response: Status: Acute Category: Medical Code(s): I48.92 - Unspecified atrial flutter (2) Hypertension: Status: Chronic Category: Medical Code(s): I10 - Essential (primary) hypertension (3) HFrEF (heart failure with reduced ejection fraction): Status: Acute Category: Medical Code(s): I50.20 - Unspecified systolic (congestive) heart failure (4) Diabetes: Status: Chronic Category: Medical
--- NOTE | 2022-09-18 10:34 | EXP.CARD.CON ---
History of Present Illness History of Present Illness Consult date: 09/18/22 Requesting physician: Brodie Abdul Consult reason: chest pain and atrial fibrillation Chief complaint: chest pain, palpitations, soa History of present illness: 61-year-old white male with past medical history of diabetes mellitus, hypertension and hyperlipidemia presented to [facility] on 09/17/2022 with complaint of history of shortness of air with exertion, chest pressure, and palpitations over the last month worse in the past 24 hours. Patient reports was initially evaluated by his PCP is scheduled to follow-up with cardiology and was set up to have an outpatient stress test on 09/21/2022. Patient reports that his symptoms became worse and was associated with dizziness and near syncope so he came to the ER for evaluation. Upon presentation to ER EKG showed atrial flutter with a rate of 139. Serial troponins were negative. BNP was 518. Stage and free T4 were 9.10 and 4.26. CBC and CMP were unremarkable. Chest x-ray was negative. D-dimer slightly elevated at 0.58. Patient was started on Cardizem bolus and drip with improvement of heart rate down to 124 patient was admitted with initial impression of A- flutter with rapid ventricular response. Cardizem drip was later DC'd due concern for low EF on bedside ultrasound. This morning patient remains a flutter with a rate greater than 120 with complaints of shortness of air and palpitations. [facility] Disclaimer: The information contained in this section may have been updated after the patient was seen, as this information can be updated by other users. Medical History (Updated 09/18/22 @ 10:45 by Yajaira Vaz APRN) Anal fistula Diabetes (~12/06/17) Hyperlipidemia Hypertension Vitamin D deficiency (~12/06/17) Family History (Updated 09/17/22 @ 02:09 by Kriss Fraire RN) Other Family history of acute congestive heart failure Family history of diabetes mellitus type II Family history of hyperlipidemia Family history of hypertension Family history of myocardial infarction Family history of stroke Social History (Updated 09/17/22 @ 02:09 by Kriss Fraire RN) Smoking Status: Former smoker alcohol intake: current substance use type: denies use current occupational status: employed Travel in the last 8 weeks: None Review of Systems Constitutional Constitutional: Reports weakness ENT Ears, Nose, Mouth, and Throat: Reports dizziness *Cardiovascular Cardiovascular: Reports chest pain and Reports dyspnea *Respiratory Respiratory: Reports dyspnea *Neurologic Neurologic: Reports dizziness and Reports weakness Exam Data for Last 24 hours Vital signs and Labs for Last 24 Hours: Temp Pulse Resp BP Pulse Ox 97.9 F 113 H 20 132/99 H 97 09/18/22 08:00 09/18/22 09:30 09/18/22 09:30 09/18/22 09:30 09/18/22 09:30 Laboratory Results - last 24 hr 09/17/22 11:26: POC Glucose 168 H 09/17/22 16:49: POC Glucose 132 H 09/17/22 21:06: POC Glucose 173 H 09/18/22 05:57: WBC 6.8, RBC 5.51, Hgb 16.5, Hct 50.8, MCV 92.3, MCH 30.0, MCHC 32.5, RDW 13.2, Plt Count 181, MPV 7.7, Neut % (Auto) 57.2, Lymph % (Auto) 30.2, [place] % (Auto) 9.1, Eos % (Auto) 3.0, Baso % (Auto) 0.4, Neut # (Auto) 3.9, Lymph # (Auto) 2.0, [place] # (Auto) 0.6, Eos # (Auto) 0.2, Baso # (Auto) 0.0 09/18/22 05:57: Sodium 135 L, Potassium 4.7, Chloride 97 L, Carbon Dioxide 31 H, Anion Gap 11.7, BUN 13, Creatinine 0.80, Estimated Creat Clear 110, Estimated GFR 98, Est GFR ( Amer) 119, Glucose 187 H, Calcium 8.5, Phosphorus 3.5, Magnesium 2.1, Total Bilirubin 1.0, AST 100 H D, ALT 148 H, Alkaline Phosphatase 44, Total Protein 6.8, Albumin 4.2, Globulin 2.6, Albumin/Globulin Ratio 1.6 09/18/22 06:01: POC Glucose 189 H I & O for Last 24 hours: Intake & Output 09/15/22 09/16/22 09/17/22 09/18/22 23:59 23:59 23:59 23:59 Intake Total 1080 / 1080 240 / 240 Output Total 0 / 200 400 / 400
[2022-09-18 11:16] LABS: Thyroid Peroxidase Antibodies 13 IU/mL (0-34)
[2022-09-18 11:55] LABS: POC Glucose,Bedside 195 (70-110)
--- NOTE | 2022-09-18 11:55 | PC.NURSE ---
Pt received Metoprolol 2.5 mg IV x2 in addition to 50 mg PO. Pt tolerating well. States that he feels less soa. Has been ambulating around room. No complaints stated. VSS. HR 106.
[2022-09-18 17:05] LABS: POC Glucose,Bedside 132 (70-110)
[2022-09-18 21:19] LABS: POC Glucose,Bedside 181 (70-110)
[2022-09-19] VITALS (10 sets, daily range): BP systolic 98–127; BP diastolic 57–77; PULSE 68–130; RESP 16–18; TEMP 36.5–37; O2SAT 95–100; BMI 32.8
[2022-09-19 05:54] LABS: POC Glucose,Bedside 195 (70-110)
--- NOTE | 2022-09-19 06:04 | PC.NURSE ---
pt remains in Atrial flutter, rate has been 110- 130 at times but does not sustain at 130, frequent fluctuation noted, vss, no acute distress
[2022-09-19 06:21] LABS: Basophils # 0.1 K/mm3 (0-0.2); Basophils % 0.6 % (0.1-2.0); Eosinophils # 0.3 K/mm3 (0.0-0.4); Eosinophils % 3.9 % (0.1-12.0); Hemoglobin 17.4 g/dL (14.1-18.0); Lymphocytes # 2.4 K/mm3 (0.7-4.5); Mean Corpuscular HGB Conc 32.9 g/dL (31.8-35.4); Mean Corpuscular Hemoglobin 30.2 pg (27.0-31.2); Mean Corpuscular Volume 91.9 fl (80-94); Mean Platelet Volume 7.6 fl (7.4-10.4); Monocytes # 0.8 K/mm3 (0.1-1.0); Monocytes % 10.5 % (1.7-9.3); Neutrophils % 53.1 % (37.0-80.0); Platelet Count 209 K/mm3 (142-424); Red Blood Count 5.76 M/mm3 (4.60-6.20); Red Cell Distribution Width 13.2 % (11.5-17.5); White Blood Count 7.6 K/mm3 (4.8-10.8)
[2022-09-19 06:29] LABS: Chloride 98 mmol/L (98-107); Potassium 4.9 mmoL/L (3.5-5.1); Sodium 134 mmol/L (136-145)
[2022-09-19 06:32] LABS: Alanine Aminotransferase 156 U/L (12-78); Albumin Level 4.3 g/dl (3.5-5.0); Albumin/Globulin Ratio 1.6 (1.1-1.8); Alkaline Phosphatase 46 U/L (38-126); Anion Gap 11.9 mEq/L (5-15); Aspartate Amino Transferase 93 U/L (17-59); Blood Urea Nitrogen 15 mg/dl (9-20); Carbon Dioxide 29 mmol/L (22.0-30.0); Creatinine Clearance Estimated 111 mL/min (50-200); Estimated Glomerular Filt Rate 76 ml/min (>60); GFR (African American) 92 ML/MIN (>60); Globulin 2.7 g/dL (1.3-3.2); Phosphorous 3.8 mg/dl (2.5-4.5)
[2022-09-19 06:33] LABS: Calcium 8.8 mg/dl (8.4-10.2); Glucose 211 mg/dl (74-100)
--- NOTE | 2022-09-19 07:28 | CA_ITS ---
APPROVED REPORT EXAM: Comprehensive 2D, Doppler, and color-flow Echocardiogram Brand Ambassador Promotional Model: RT Rubia(R) Indications: A-flutter cardioverison Procedure After obtaining informed consent, patient underwent transesophageal echo in the Gameplay [facility]. Type of Sedation : Conscious Sedation Sedation was administered by Kalin Choi C.R.N.ACindy Sedation was achieved intravenously with: Propofol () Transesophageal probe was inserted and advanced into esophagus without difficulty by Dr. Ogden. Echo enhancement indication: R/O Thrombus. Echo enhancement agent administered: Agitated Saline The AC was performed without complications. Complication encountered: None Synchronized Cardioversion attempted: Successful Synchronized Cardioversion acheived with 200 Joules after 1 attempt(s). Rhythm following Synchronized Cardioversion: Normal Sinus Rhythm Throughout the procedure, the blood pressure, pulse oximetry, cardiac rhythm, and rate were monitored. The patient tolerated the procedure without adverse effects. Recovery from conscious sedation was uneventful and vital signs were stable. Left Ventricle The left ventricle is normal size. The left ventricular systolic function is normal. The left ventricular ejection fraction is within the normal range. Mild concentric hypertrophy of the left ventricle There is normal LV segmental wall motion. No left ventricle thrombus noted on this study. Left ventricular systolic function 60 to 65% Right Ventricle The right ventricle is normal size. The right ventricular systolic function is normal. Atria The left atrium size is normal. Normal left atrial appendage with no evidence for thrombus or smoke in the left atrium The right atrium size is normal. Aortic Valve The aortic valve is normal in structure. Trileaflet There is no aortic valvular stenosis. No aortic regurgitation is present. Mitral Valve The mitral valve is normal in structure. There is no mitral valve regurgitation noted. Tricuspid Valve Normal tricuspid valve There is no tricuspid valve regurgitation noted. Great Vessels The aortic root is normal in size. Pericardium There is no pericardial effusion. Other Information Study Quality: Excellent Conclusion Transesophageal echocardiogram was performed. Throat was anesthetized with HurriCaine spray. No complications Echocardiogram shows normal left ventricular systolic function with an ejection fraction of 60 to 65%. No wall motion abnormalities. Normal left atrial size with normal left atrial appendage and no evidence for thrombus. No smoke in the left atrium as well. Normal left atrial function. The interatrial septum was also normal with agitated saline given which shows no defect. There is no evidence for atrial septal defect, patent foramen ovale or AV fistula. Normal trileaflet aortic valve and normal mitral valve with no insufficiency. Normal function of the valves. After transesophageal echocardiogram was performed, patient was still sedated by anesthesia. 200 J synchronized electrical cardioversion with baptist to normal sinus rhythm with a heart rate 55-60. This was confirmed on telemetry. 1. Normal left ventricular size and function with an estimated ejection fraction of 60 to 65% 2. Normal left atrial function with normal left atrial appendage and no evidence for thrombus 3. Successful synchronized electrical cardioversion of atrial fibrillation/flutter to normal sinus rhythm with 200 J synchronized electrical cardioversion Patient should remain on anticoagulation. Continue current medications. Follow-up in cardiology clinic 1 to 2 weeks after discharge Electronically signed by
--- NOTE | 2022-09-19 10:40 | EXP.CARD.PN ---
Subjective Subjective Date: 09/19/22 Time: 08:00 Principal diagnosis: a flutter rvr Interval history: Patient remains in aflutter with a rate of 110-120. No complaints. Morning labs reviewed. Exam Data for Last 24 hours Vital signs and Labs for Last 24 Hours: Temp Pulse Resp BP Pulse Ox 97.7 F 74 16 116/57 L 97 09/19/22 07:38 09/19/22 08:10 09/19/22 07:38 09/19/22 07:38 09/19/22 07:38 Laboratory Results - last 24 hr 09/17/22 07:37: Thyroid Peroxidase Ab 13 09/18/22 11:23: POC Glucose 195 H 09/18/22 16:53: POC Glucose 132 H 09/18/22 20:13: POC Glucose 181 H 09/19/22 05:48: POC Glucose 195 H 09/19/22 05:49: WBC 7.6, RBC 5.76, Hgb 17.4, Hct 53.0 H, MCV 91.9, MCH 30.2, MCHC 32.9, RDW 13.2, Plt Count 209, MPV 7.6, Neut % (Auto) 53.1, Lymph % (Auto) 32.0, Dickens % (Auto) 10.5 H, Eos % (Auto) 3.9, Baso % (Auto) 0.6, Neut # (Auto) 4.0, Lymph # (Auto) 2.4, Dickens # (Auto) 0.8, Eos # (Auto) 0.3, Baso # (Auto) 0.1 09/19/22 05:49: Sodium 134 L, Potassium 4.9, Chloride 98, Carbon Dioxide 29, Anion Gap 11.9, BUN 15, Creatinine 1.00 D, Estimated Creat Clear 111, Estimated GFR 76, Est GFR ( Amer) 92 D, Glucose 211 H, Calcium 8.8, Phosphorus 3.8, Total Bilirubin 1.0, AST 93 H, ALT 156 H, Alkaline Phosphatase 46, Total Protein 7.0, Albumin 4.3, Globulin 2.7, Albumin/Globulin Ratio 1.6 I & O for Last 24 hours: Intake & Output 09/16/22 09/17/22 09/18/22 09/19/22 23:59 23:59 23:59 23:59 Intake Total 1080 / 1080 1000 / 1000 480 / 480 Output Total 0 / 200 400 / 400 0 / 0 Balance 1080 / 880 600 / 600 480 / 480 Weight 222 lb 226 lb 3.214 oz 220 lb 7.396 oz 222 lb 2 oz Constitutional Constitutional: no acute distress *Routine Respiratory Exam Respiratory: Present CTA bilaterally and symmetric chest movement *Routine Cardiovascular Exam Cardiovascular: Present RRR, Normal S1 and Normal S2 *Routine Abdominal Exam Abdominal: Present soft and normoactive bowel sounds; Absent tenderness *Routine Extremities Exam Extremities: Present full ROM and normal capillary refill; Absent edema *Routine Skin Exam Skin: Present intact, dry and warm Detailed Neck Exam: Thyroids Thyroid: Absent bruit Progress Note: A&P Assessment and plan (1) Atrial flutter with rapid ventricular response: Status: Acute (2) Hypertension: Status: Chronic (3) HFrEF (heart failure with reduced ejection fraction): Status: Acute (4) Diabetes: Status: Chronic (5) Hyperlipidemia: Status: Chronic (6) Class 1 obesity: Status: Chronic Assessment and Plan Assessment and Plan for All Diagnoses:: A fib/flutter [id number] score 2 -Increase metoprolol to 50 mg p.o. every 6 hours, with a one-time dose of Lopressor 2.5 mg IV -Continue dig 125 mcg p.o. daily -Continue Xarelto 20 mg p.o. daily -CTA chest negative for PE. 09/19/2022: Patient remains in a flutter with rates 110s to 130s despite increasing metoprolol and continuing digoxin. At this time we will proceed with AC/cardioversion. Discussed risk versus benefits with patient and family, he is agreeable to proceed. We will change metoprolol dosing to twice daily. Questionable HFrEF in the setting of atrial flutter -In the setting of afib rvr -Prelim echo shows estimated EF of 45%, official read pending -No signs of volume overload noted -Consider repeat limited echo when rate control is achieved.? Consider ischemic evaluation outpatient. 09/19/2022: Echo report from shows LVEF is variable due to arrhythmia but is visually estimated at 35 to 50%, severe right atrial enlargement. We will plan to repeat limited echo after cardioversion to reassess EF. Hyperlipidemia -LDL 115, statin on hold due to elevated liver enzymes Diabetes mellitus type 2 -For to primary service Hypertension -Continue lisinopril 20 mg p.o. daily CV summary 09/19/2022: Patient remains in atrial flutter, will proceed with AC and cardioversion today. Will repeat limited echo a
[2022-09-19 10:50] LABS: POC Glucose,Bedside 205 (70-110)
--- NOTE | 2022-09-19 11:09 | EXP.DC.SUM ---
General Admission date:: 09/17/22 Discharge date: 09/19/22 HPI HPI HPI: Mr. Edmond is a 61-year-old male with a past medical history of DM, HTN, Hyperlipidemia. He presents to [facility] with a 2-month history of shortness of air with exertion, chest pressure and palpitations, worsening over the last 24 hours. He reports that his symptoms originally began approximately 2 months ago with extreme shortness of air with activity, he reports that it was associated with chest pressure. He went to see his PCP and is scheduled for follow-up with Product Technician and to have stress testing this upcoming 09/21/22. He reports that today his symptoms became severe and were also associated with dizziness and near syncope, he came into the ER for evaluation. In the ER, the patient underwent an EKG that showed atrial flutter with HR 139. Troponin was 0.02 x 2 readings. BNP was 518. TSH and Free T4 were 9.10 and 4.26. CBC and CMP were unremarkable. Chest xray showed no acute findings. In the ER, the patient received Cardizem bolus and drip with improvement of HR to 124. The patient was admitted with initial impression: Atrial Flutter with rapid ventricular response. Hospital Course Hospital Course Hospital Course: 61-year-old male with past medical history DM, HTN, Hyperlipidemia presents due to a 2-month history of shortness of air with exertion, worsening over the last 24 hours associated with dizziness.? Patient in A-fib with RVR.? Tolerating metoprolol.? Cardioverted morning of discharge with good response. Transition to long-acting metoprolol to maintain sinus rhythm and rate control. Cardiology consulted during admission. Problems addressed as follows: - Atrial Fibrillation with Rapid Ventricular response -Hypertension Reports 2 month history of symptoms.admitted for monitoring on telemetry and initiation of medication for rate control along with anticoagulation. Started on digoxin and gradually titrated metoprolol. Transitioned to 100 mg metoprolol succinate twice daily on day of discharge. Continue digoxin per med rec. Cardiology was consulted, patient taken for cardioversion after performance of AC. We will continue Xarelto 20 mg daily for anticoagulation. Patient stable for discharge home with close follow-up with cardiology to monitor for stability of A-fib. Of note, echocardiogram obtained during admission. Initial EF 45%. Limited echo obtained after cardioversion showing EF preliminarily greater than 55%. Continued home lisinopril for hypertension. - Diabetes: Sliding scale insulin during admission. Continue Farxiga, Tradjenta, metformin at discharge. Further management as an outpatient with PCP. A1c controlled 6.5 - Hyperlipidemia: Held statin during admission due to elevation of liver enzymes. Enzymes improved, resume at discharge. Medically stable for discharge home. Follow-up closely with cardiology as an outpatient. Exam Data for Last 24 hours Vital signs and Labs for Last 24 Hours: Temp Pulse Resp BP Pulse Ox 97.7 F 74 16 116/57 L 97 09/19/22 07:38 09/19/22 08:10 09/19/22 07:38 09/19/22 07:38 09/19/22 07:38 Laboratory Results - last 24 hr 09/17/22 07:37: Thyroid Peroxidase Ab 13 09/18/22 11:23: POC Glucose 195 H 09/18/22 16:53: POC Glucose 132 H 09/18/22 20:13: POC Glucose 181 H 09/19/22 05:48: POC Glucose 195 H 09/19/22 05:49: WBC 7.6, RBC 5.76, Hgb 17.4, Hct 53.0 H, MCV 91.9, MCH 30.2, MCHC 32.9, RDW 13.2, Plt Count 209, MPV 7.6, Neut % (Auto) 53.1, Lymph % (Auto) 32.0, Doddridge % (Auto) 10.5 H, Eos % (Auto) 3.9, Baso % (Auto) 0.6, Neut # (Auto) 4.0, Lymph # (Auto) 2.4, Doddridge # (Auto) 0.8, Eos # (Auto) 0.3, Baso # (Auto) 0.1 09/19/22 05:49: Sodium 134 L, Potassium 4.9, Chloride 98, Carbon Dioxide 29, Anion Gap 11.9, BUN 15, Creatinine 1.00 D, Estimated Creat Clear 111, Estimated GFR 76, Est GFR ( Amer) 92 D, Glucose 211 H, Calcium 8.8, Phosphorus 3.8, Total Bilirubin 1.0,
[2022-09-19 14:21] LABS: POC Glucose,Bedside 139 (70-110)
--- NOTE | 2022-09-19 15:27 | ECG_ITS ---
APPROVED REPORT Exam: Resting ECG HR:73 bpm ECG Measurements Heart Rate 73 AXES MN 159 P 64 QRSd 93 QRS 33 QT 369 T 4 QTc 395 Conclusion SINUS RHYTHM LOW QRS VOLTAGE IN PRECORDIAL LEADS [QRS DEFLECTION < 1.0 mV IN CHEST LEADS] Isolated Q in III - probable normal variant ABNORMAL ECG UNCONFIRMED REPORT Electronically signed by : Alvarez Sow MD 09/22/2022 14:33:04
--- NOTE | 2022-09-19 15:27 | P.PN_ITS ---
[facility] Disclaimer: The information contained in this section may have been updated after the patient was seen, as this information can be updated by other users. Medical History (Updated 09/18/22 @ 17:43 by Darryl Titus MD) Anal fistula Diabetes (~12/06/17) Hyperlipidemia Hypertension Vitamin D deficiency (~12/06/17) Family History (Updated 09/17/22 @ 02:09 by Kriss Fraire, RN) Other Family history of acute congestive heart failure Family history of diabetes mellitus type II Family history of hyperlipidemia Family history of hypertension Family history of myocardial infarction Family history of stroke Social History (Updated 09/17/22 @ 02:09 by Kriss Fraire RN) Smoking Status: Former smoker alcohol intake: current substance use type: denies use current occupational status: employed Travel in the last 8 weeks: None [facility] Anesthesia Checklist Patient Identification Patient Identification: Arm Band Structural Data Admitted From: Home Planned Operative Procedure/s: AC/Cardioversion Consent for Planned Operative Procedure(s) Verified: Yes Verified Documents: Surgical Consent and History and Physical NPO Status Verified Time NPO: 00:00 Additional verifications Anesthesia Reactions: No Airway Assessment C-Spine Mobility Assessed: Yes TMJ Mobility Assessed: Yes Dentition: Good Dentition Neurological Assessment Level of Consciousness: Awake and Alert Anesthesia Plan Anesthesia Risk discussed: Yes Anesthesia Plan: Verified ASA Class: III Anesthesia Type: MAC
--- NOTE | 2022-09-19 15:57 | HMH.PHAINT1 ---
Pharmacy Intervention Comments: Counseled patient and family on 3 new medications to START on discharge (digoxin, metoprolol, rivaroxaban). Patient and family demonstrated understanding of medications' indication, dose, route, frequency, and potential side effects. Patient and family also demonstrated understanding of signs and symptoms of a stroke.
--- NOTE | 2022-09-20 07:59 | P.PNANES_ITS ---
[facility] Anesthesia Record Part I Anesthesia Record I Intake, IV Amount: 0 Estimated blood loss (mL): 0 Urine output (mL): 0 Blood Products used (#): none Blood Pressure: 92/47 SaO2: 95 Pulse Rate: 125 Respiratory Rate: 24 Temperature: 97.2 F Patient is:: Drowsy and Stable Stable to PACU at:: 08:00
[2022-09-20 08:00] VITALS: BP 92/47; PULSE 125; RESP 24; TEMP 36.2; O2SAT 95
--- NOTE | 2022-09-20 09:23 | P.PNANES_ITS ---
[facility] Anesthesia Record Part I Anesthesia Record I Intake, IV Amount: 100 Estimated blood loss (mL): 0 Urine output (mL): 0 Blood Products used (#): none Blood Pressure: 96/49 SaO2: 97 Pulse Rate: 115 Respiratory Rate: 24 Temperature: 97 F Patient is:: Drowsy and Stable Stable to PACU at:: 09:20
[2022-09-20 09:25] VITALS: BP 96/49; PULSE 115; RESP 24; TEMP 36.1; O2SAT 97
--- NOTE | 2022-09-20 15:32 | CARE MANAGER ---
Contacted patient related to hospital discharge. He states he is resting a lot, but doing well. He is taking his medication and aware of follow up appointment. Denies any questions or concerns. TEREZA Barrientos
== END 2022-09-19 16:40 | disposition home or self-care (01) | DRG 309 ==
LOC: ER 09-17 01:18 → 2ND 09-17 01:30
PROVIDERS: Internal Medicine Cardiovascular Disease; Nurse Practitioner Family; Admitting Provider Student in an Organized Health Care Education/Training Program; Emergency Provider Emergency Medicine; PCP Family Medicine; Visit Provider Student in an Organized Health Care Education/Training Program
PROC: 5A2204Z Restoration of Cardiac Rhythm, Single (ICD-10-PCS; principal; 2022-09-19 14:00)
PROC: 5A2204Z Restoration of Cardiac Rhythm, Single (ICD-10-PCS; 2022-09-19 14:00)
DX: I48.92 Unspecified atrial flutter (principal); I50.22 Chronic systolic (congestive) heart failure; Z87.891 Personal history of nicotine dependence; E78.5 Hyperlipidemia, unspecified; I11.0 Hypertensive heart disease with heart failure; E66.9 Obesity, unspecified; Z68.32 Body mass index [BMI] 32.0-32.9, adult; E11.9 Type 2 diabetes mellitus without complications
CPT/HCPCS: 92960; 36415; 71045; 71275; 80048; 80053; 82962; 83735; 83880; 84100; 84436; 84443; 84479; 84484; 85025; 85378; 85610; 85730; 86376; 93005; 93306; 93308; 93312; 99291; C9803; Q9967; U0003; U0005

== ENCOUNTER → 2022-10-23 06:15 | Outpatient (CLI) | payer BC, SELFPAY ==
--- NOTE | 2022-10-23 06:15 | NM_ITS ---
APPROVED REPORT Exam: Nuclear Stress Test Indication: dysrhythmia, a-fib, htn, dm, hyperlipidemia, ex smoker, sob, palpitations, abn ekg Patient Location: Outpatient Stress Tech: Irma Sousa [place] Tech:Veda Hodge, ARRT RT (R)(N)(M) Ht: 5 ft 9 in Wt: 217 lbs HR: 54 bpm BP: 101/91 mmHg BSA: 2.14 m2 TID: 1.08 BMI: 32.0 History: dysrhythmia, a-fib, htn, dm, hyperlipidemia, ex smoker, sob, palpitations, abn ekg Procedure: Patient exercised on Corona protocol 8:00 minutes and sec, resting heart rate 54 bpm, resting blood pressure 101/91 mmHg, with exercise maximum heart rate achived was 135 bpm which is 85 % of the maximum predicted heart rate and blood pressure was 218/110 mmHg. Test was stopped due to fatigue. Patient denied any complaint of chest pain. Patient has exercise capacity, achieved 10.1 METs of workload on treadmill, the blood pressure response to exercise was . Cardiac Stress and Resting SPECT Images: Cardiac Stress and Resting SPECT images were obtained using technetium 99m Myoview 29.9 mCi stress and 10.06 mCi at rest. Resting and supine stress imaging demonstrate a medium-sized, moderate, fixed perfusion defect in the inferior and inferoseptal LV wall. This defect is no longer visualized with prone stress imaging. Findings are suggestive of diaphragmatic attenuation. Gated imaging demonstrate a normal left ventricular systolic global and regional function. LVEF is calculated at 62% Conclusion: Diaphragmatic attenuation is present. No evidence of fixed or reversible perfusion defects. Gated imaging demonstrate a normal left ventricular systolic global and regional function. LVEF is calculated at 62% Electronically signed by : Chelsey Orr, 10/23/2022 17:08:12
--- NOTE | 2022-10-23 06:15 | CA_ITS ---
APPROVED REPORT Exam: Pharmacologic Technologist: Irma Sousa, Ht: 5 ft 9 in Wt: 228 lbs BSA: 2.18 m2 HR: 54 bpm BP: 161/91 mmHg Rhythm: NSR Medical History Medical History: HTN, Hyperlipidemia, Diabetes, Smoking Medications: Lisinopril,,,,, Aspirin,,,,, Metformin,,,,, Atorvastatin,,,,, Digoxin,,,,, RIvaROXABAN,,,,, DApagliflozin,,,,, Metoprolol Succinate ER,,,,, LiNAGLIPTON,,,,, Allergies: No known drug allergies Cardiac Risk Factors: HTN, Hyperlipidemia, Diabetes , FHX of CAD, Smoking Stress Test Details Test: Corona, Exercise stress testing was performed using a modified Corona protocol. HR Resting HR: 59 bpm Max Heart Rate (APMHR): 158 bpm Max HR Achieved: 135 bpm Target HR (85% APMHR): 134 bpm % of APMHR: 85 Recovery HR: 73 bpm HR response to stress: Normal HR response to stress BP Resting BP: 161.0/91 mmHg Max BP: 218/110 mmHg Recovery BP: 204.0/87.0 mmHg BP response to stress: Abnormal hypertensive response to stress. ECG Resting ECG: NSR, T-wave changes in the inferior leads Stress ECmm horizontal ST-depression in the inferolateral leads Arrhythmia: None Recovery ECG: Normal sinus rhythm, T-wave changes in the inferior leads, unchanged from baseline Clinical Exercise duration: 07:59 min Highest Stage Achieved: Exercise capacity: 10.1 METs Stress ECG Conclusion MAX HR: 135 % OF PM: 85 MAX BP: 218/110 METS: 10.1 TEST STOPPED DUE TO: FATIGUE AND HYPERTENSIVE BP RESPONSE PT HAD FATIGUE, KNEE PAIN, AND MILD SOA GOOD EXERCISE CAPACITY FOR AGE AND SEX [address] SEGMENT DEPRESSION ABNORMAL EKG PORTION OF STRESS TEST Test Summary REST . . . . . . . Sitting Standing REST . . . . . . . Sitting REST 06:08 0.0 0.0 59 . 161/ 91 . . Stage 1 01:00 10.0 1.7 88 . . . . Stage 1 02:00 10.0 1.7 99 . . . . Stage 1 03:00 10.0 1.7 104 . 170/ 90 . . Stage 2 01:00 12.0 2.5 109 . . . . Stage 2 02:00 12.0 2.5 113 . . . . Stage 2 03:00 12.0 2.5 117 . 175/100 . . Stage 3 01:00 14.0 3.4 125 . . . . Stage 3 01:59 14.0 3.4 134 . . . Stop exercise at 07:59 RECOVERY 01:00 0.0 0.0 112 . . . . RECOVERY 02:00 0.0 0.0 102 . 190/100 . . RECOVERY 03:00 0.0 0.0 91 . 190/100 . . RECOVERY 04:00 0.0 0.0 84 . 190/100 . . RECOVERY 05:00 0.0 0.0 80 . 218/110 . . RECOVERY 06:00 0.0 0.0 78 . 218/110 . . RECOVERY 07:00 0.0 0.0 73 . 218/110 . . RECOVERY 08:00 0.0 0.0 73 . 200/ 93 . . RECOVERY 09:00 0.0 0.0 72 . 200/ 93 . . RECOVERY 09:50 0.0 0.0 78 . 204/ 87 . . Electronically signed by : Chelsey Orr, 10/23/2022 17:01:08
== END ==
PROVIDERS: PCP Family Medicine; Visit Provider Nurse Practitioner
DX: E11.9 Type 2 diabetes mellitus without complications (principal); E78.5 Hyperlipidemia, unspecified; I10 Essential (primary) hypertension; I48.91 Unspecified atrial fibrillation; R94.31 Abnormal electrocardiogram [ECG] [EKG]; Z79.84 Long term (current) use of oral hypoglycemic drugs
CPT/HCPCS: 78452; 93017; A9502

== ENCOUNTER → 2022-10-31 09:48 | Outpatient (CLI) | payer BC, SELFPAY ==
[2022-10-31 10:26] LABS: Basophils % 0.3 % (0.1-2.0); Eosinophils # 0.2 K/mm3 (0.0-0.4); Eosinophils % 2.7 % (0.1-12.0); Hematocrit 52.2 % (42.0-52.0); Lymphocytes # 1.6 K/mm3 (0.7-4.5); Lymphocytes % 27.4 % (10-50); Mean Corpuscular HGB Conc 32.6 g/dL (31.8-35.4); Mean Corpuscular Hemoglobin 29.4 pg (27.0-31.2); Mean Corpuscular Volume 90.3 fl (80-94); Mean Platelet Volume 7.4 fl (7.4-10.4); Monocytes # 0.5 K/mm3 (0.1-1.0); Monocytes % 8.8 % (1.7-9.3); Neutrophils # 3.6 K/mm3 (1.8-7.8); Neutrophils % 60.8 % (37.0-80.0); Platelet Count 188 K/mm3 (142-424); Red Blood Count 5.78 M/mm3 (4.60-6.20); Red Cell Distribution Width 13.2 % (11.5-17.5)
[2022-10-31 10:56] LABS: Alanine Aminotransferase 80 U/L (12-78); Albumin Level 4.8 g/dl (3.5-5.0); Alkaline Phosphatase 52 U/L (38-126); Anion Gap 17.6 mEq/L (5-15); Aspartate Amino Transferase 54 U/L (17-59); Bilirubin,Unconjugated 1.1 mg/dL (0.0-1.1); Blood Urea Nitrogen 12 mg/dl (9-20); Calcium 9.3 mg/dl (8.4-10.2); Carbon Dioxide 32 mmol/L (22.0-30.0); Chloride 94 mmol/L (98-107); Chol/HDL Ratio 2.9 (1-3.5); Cholesterol 155 mg/dl (140-200); Estimated Glomerular Filt Rate 98 ml/min (>60); GFR (African American) 119 ML/MIN (>60); Glucose 230 mg/dl (74-100); HDL Cholesterol 54 mg/dl (40-60); Magnesium 1.9 mg/dl (1.6-2.3); Potassium 4.6 mmoL/L (3.5-5.1); Sodium 139 mmol/L (136-145); Total Protein,Serum 7.3 g/dl (6.3-8.2); Triglycerides 132 mg/dl (30-150); VLDL Cholesterol 26 mg/dL (0-40)
[2022-10-31 11:07] LABS: Direct LDL Cholesterol 87.83 mg/dL (100-129)
[2022-10-31 11:30] LABS: Thyroid Stimulating Hormone 2.19 uIU/mL (0.465-4.68)
[2022-10-31 15:38] LABS: Hemoglobin A1C 7.5 % (4.0-6.0)
[2022-11-01 09:02] LABS: Triiodothyronine (T3) Free 3.4 pg/mL (2.0-4.4)
== END ==
PROVIDERS: PCP Family Medicine; Visit Provider Physician Assistant
DX: E13.69 Other specified diabetes mellitus with other specified complication (principal); I48.0 Paroxysmal atrial fibrillation; E78.5 Hyperlipidemia, unspecified; I10 Essential (primary) hypertension; R94.31 Abnormal electrocardiogram [ECG] [EKG]; Z79.84 Long term (current) use of oral hypoglycemic drugs; Z79.899 Other long term (current) drug therapy
CPT/HCPCS: 36415; 80048; 80061; 80076; 83036; 83735; 84439; 84443; 84481; 85025

== ENCOUNTER → 2023-05-22 10:58 | Outpatient (CLI) | payer BC, SELFPAY ==
[2023-05-22 11:27] LABS: Basophils % 0.3 % (0.1-2.0); Eosinophils # 0.4 K/mm3 (0.0-0.4); Eosinophils % 4.5 % (0.1-12.0); Hematocrit 48.1 % (42.0-52.0); Hemoglobin 16.8 g/dL (14.1-18.0); Lymphocytes # 2.2 K/mm3 (0.7-4.5); Lymphocytes % 27.1 % (10-50); Mean Corpuscular Hemoglobin 30.8 pg (27.0-31.2); Mean Platelet Volume 6.4 fl (7.4-10.4); Monocytes # 0.5 K/mm3 (0.1-1.0); Monocytes % 6.4 % (1.7-9.3); Neutrophils # 5.1 K/mm3 (1.8-7.8); Neutrophils % 61.7 % (37.0-80.0); Platelet Count 243 K/mm3 (142-424); Red Blood Count 5.46 M/mm3 (4.60-6.20); Red Cell Distribution Width 13.3 % (11.5-17.5); White Blood Count 8.2 K/mm3 (4.8-10.8)
[2023-05-22 12:14] LABS: Chloride 95 mmol/L (98-107); Sodium 136 mmol/L (136-145)
[2023-05-22 12:15] LABS: Potassium 4.9 mmoL/L (3.5-5.1)
[2023-05-22 12:17] LABS: Alanine Aminotransferase 90 U/L (12-78); Alkaline Phosphatase 54 U/L (38-126); Anion Gap 14.9 mEq/L (5-15); Aspartate Amino Transferase 52 U/L (17-59); Bilirubin,Direct 0.2 mg/dl (0.0-0.4); Bilirubin,Indirect 0.5 mg/dL (0.0-0.9); Bilirubin,Total 0.7 mg/dl (0.2-1.3); Bilirubin,Unconjugated 0.6 mg/dL (0.0-1.1); Blood Urea Nitrogen 17 mg/dl (9-20); Carbon Dioxide 31 mmol/L (22.0-30.0); Cholesterol 160 mg/dl (140-200); Estimated Glomerular Filt Rate 98 ml/min (>60); GFR (African American) 119 ML/MIN (>60); Total Protein,Serum 8.1 g/dl (6.3-8.2); Triglycerides 147 mg/dl (30-150); VLDL Cholesterol 29 mg/dL (0-40)
[2023-05-22 12:18] LABS: Calcium 9.7 mg/dl (8.4-10.2); Chol/HDL Ratio 3.5 (1-3.5); Glucose 207 mg/dl (74-100); HDL Cholesterol 46 mg/dl (40-60); Magnesium 1.9 mg/dl (1.6-2.3)
[2023-05-22 12:34] LABS: Free T4 (Free Thyroxine) 1.14 ng/dl (0.78-2.19)
[2023-05-22 12:39] LABS: Direct LDL Cholesterol 94.92 mg/dL (100-129)
[2023-05-22 12:48] LABS: Thyroid Stimulating Hormone 2.21 uIU/mL (0.465-4.68)
== END ==
PROVIDERS: Nurse Practitioner; PCP Internal Medicine; Visit Provider Physician Assistant
DX: I48.91 Unspecified atrial fibrillation (principal); E11.9 Type 2 diabetes mellitus without complications; E78.5 Hyperlipidemia, unspecified; I10 Essential (primary) hypertension; R94.31 Abnormal electrocardiogram [ECG] [EKG]; Z79.84 Long term (current) use of oral hypoglycemic drugs; Z87.891 Personal history of nicotine dependence
CPT/HCPCS: 36415; 80048; 80061; 80076; 80162; 83735; 84439; 84443; 85025

== ENCOUNTER 2023-08-05 10:51 | Inpatient (IN) | payer BC, SELFPAY ==
[2023-08-05] VITALS (23 sets, daily range): BP systolic 101–130; BP diastolic 41–95; PULSE 77–132; RESP 15–20; TEMP 36.4–37.1; O2SAT 93–98; BMI 32.6; BMI 31.6
--- NOTE | 2023-08-05 10:50 | ECG_ITS ---
APPROVED REPORT Exam: Resting ECG HR:128 bpm ECG Measurements Heart Rate 128 AXES KS 188 P 231 QRSd 68 QRS 49 QT 371 T 61 QTc 447 Conclusion SINUS TACHYCARDIA Electronically signed by : RITCHIE TIJERINA, 08/05/2023 13:10:15
--- NOTE | 2023-08-05 10:56 | XR_ITS ---
PROCEDURE INFORMATION: Exam: XR Chest Exam date and time: 08/05/2023 10:59 AM Age: 62 years old Clinical indication: Chest wall pain; Additional info: Chest pain TECHNIQUE: Imaging protocol: Radiologic exam of the chest. Views: 1 view. COMPARISON: CT ANGIO CHEST PE PROTOCOL 09/18/2022 10:01 AM FINDINGS: Lungs: Stable left lower lobe granuloma since the CT scan. The lungs are otherwise clear. Pleural spaces: Unremarkable. No pleural effusion. No pneumothorax. Heart/Mediastinum: Unremarkable. No cardiomegaly. Bones/joints: Unremarkable. IMPRESSION: No acute findings.
[2023-08-05] MEDS: 0.9 % SODIUM CHLORIDE 1000ML 1,000 ML 999 ML IV (11:03)
[2023-08-05] MEDS: ASPIRIN 81MG CHEWABLE TABLET 324 MG PO (11:03)
[2023-08-05 11:06] LABS: Basophils # 0.2 K/mm3 (0-0.2); Basophils % 1.2 % (0.1-2.0); Eosinophils # 0.6 K/mm3 (0.0-0.4); Eosinophils % 4.6 % (0.1-12.0); Hematocrit 55.1 % (42.0-52.0); Hemoglobin 17.4 g/dL (14.1-18.0); Lymphocytes # 2.8 K/mm3 (0.7-4.5); Lymphocytes % 23.1 % (10-50); Mean Corpuscular HGB Conc 31.6 g/dL (31.8-35.4); Mean Corpuscular Volume 94.9 fl (80-94); Mean Platelet Volume 7.4 fl (7.4-10.4); Monocytes % 8.4 % (1.7-9.3); Neutrophils # 7.7 K/mm3 (1.8-7.8); Neutrophils % 62.7 % (37.0-80.0); Platelet Count 296 K/mm3 (142-424); Red Cell Distribution Width 13.7 % (11.5-17.5); White Blood Count 12.3 K/mm3 (4.8-10.8)
--- NOTE | 2023-08-05 11:06 | PC.NURSE ---
Dr. Bateman at [facility] for pt eval
--- NOTE | 2023-08-05 11:12 | PC.NURSE ---
RAD at for CXR
--- NOTE | 2023-08-05 11:15 | HMH.EDCP ---
Discharge Plan Disposition Patient Disposition: Admitted Chief Complaint: Shortness of Breath/Dyspnea Clinical Impressions Clinical Impression: Atrial tachycardia Discharge ED Provider: Parminder Bateman HPI General Chief Complaint: Shortness of Breath/Dyspnea Stated Complaint: cp Time Seen by Provider: 08/05/23 10:56 Mode of Arrival: Ambulatory Source of Information: Patient Limitations: No Limitations Description of Symptoms (Recalled from ER Triage Doc. by RN): Pt reports SOA, increased HR, and diaphoresis that started around 3am and has progressed since. Pt denies chest pain, N/V. He does report intermittent cough with clear sputum. Pt reports taking an extra half dose of his metoprolol this am. History of Present Illness HPI narrative: 62-year-old male history of hypertension, hyperlipidemia, diabetes, A-fib on Xarelto/metoprolol/digoxin presenting with tachycardia. Patient states that he was fine yesterday, 08/03. Went to bed around 9 PM on 08/03. In the middle of the night, woke up and felt like his heart was racing. [place] short of breath and chest pressure with exertion as well. Nonpositional shortness of breath or chest pressure. Has not been nauseated, diaphoretic, coughing, febrile, or any other concerns. Related Data Home Medications Medication Instructions Recorded Confirmed aspirin 81 mg tablet,delayed 81 mg PO DAILY Heart disease 09/16/22 06/27/23 release blood sugar diagnostic (Blood 09/16/22 06/27/23 Glucose Test strips) blood-glucose meter (Blood Glucose 09/16/22 06/27/23 Monitoring kit) lancets 30 gauge and blood glucose 09/16/22 06/27/23 strips combo pack Previous Rx's Medication Instructions Recorded atorvastatin 10 mg tablet See Rx Instructions .Route 12/19/22 .COMPLEX #90 tabs digoxin 125 mcg (0.125 mg) tablet 125 mcg PO DAILY 30 days #30 tabs 12/19/22 (Digox) metoprolol succinate 100 mg 100 mg PO BID 30 days #180 tabs 05/21/23 tablet,extended release 24 hr rivaroxaban 20 mg tablet 20 mg PO HS #90 tabs 05/22/23 dapagliflozin propanediol 10 mg 10 mg PO DAILY Diabetes #90 tabs 06/27/23 tablet (Farxiga) semaglutide 0.25 mg or 0.5 mg (2 0.25 mg (0.368 mL) SQ WEEKLY #3 mL 06/27/23 mg/3 mL) subcutaneous pen injector (Ozempic) linagliptin 5 mg tablet (Tradjenta) 5 mg PO DAILY Diabetes 30 days #30 06/29/23 tabs lisinopril 20 mg tablet 20 mg PO BID #180 tabs 07/04/23 metformin 1,000 mg tablet See Rx Instructions .Route 08/01/23 .COMPLEX #60 tabs Allergies Allergy/AdvReac Type Severity Reaction Status Date / Time No Known Allergies Allergy Verified 06/27/23 09:52 [facility] Disclaimer: The information contained in this section may have been updated after the patient was seen, as this information can be updated by other users. Medical History Anal fistula Diabetes (~12/06/17) Hyperlipidemia Hypertension Vitamin D deficiency (~12/06/17) Family History Other Family history of acute congestive heart failure Family history of diabetes mellitus type II Family history of hyperlipidemia Family history of hypertension Family history of myocardial infarction Family history of stroke Social History Smoking Status: Never smoker alcohol intake: current substance use type: denies use current occupational status: employed Travel in the last 8 weeks: None ROS Obtained: Yes All systems reviewed & no additional complaints except as documented Physical Exam General General appearance: alert Neck Neck exam: Present trachea midline Chest Chest inspection: Present normal inspection and symmetric chest wall rise Respiratory Respiratory exam: Present normal lung sounds bilaterally; Absent respiratory distress, wheezes, stridor, accessory muscle use or prolonged expiratory phase Cardiovascular Cardiovascular exam: Present normal rhythm and tachycardia Abdominal Exam Abdominal exam: Present soft; Absent distention, tenderness or guarding Extremities Exam Extremities exam: Absent edema Neurological Exam Neurological exam: Present alert, oriented X3 and CN II-XII intact Skin Skin exam: Present warm and dry; Absent cyanosis, diaphoresis or pallor HEART Score HEART Score HEART Score assessment performed?: Yes History (anamnesis): Moderately suspicious ECG: Non-specific disturbance Age: 45-65 years Risk factors: 3 or more risk factors Troponin: </= normal limit HEART Score: 5 Critical Care Critical Care Time Critical Care Time: No Medical Decision Making Medical Records Medical records reviewed: Yes I reviewed the patient's medical records. Kenneth Inquiry Pt receiving controlled substance: No Kenneth was queried for this patient: No Vital Signs Vital Signs: 08/05/23 10:51 08/05/23 11:01 08/05/23 11:31 Temperature 97.6 F Temperature Source Oral Pulse Rate 126 H 127 H Pulse Rate [Right Radial] 130 H Respiratory Rate 16 17 19 Blood Pressure 103/66 L 101/72 L Blood Pressure [Right Arm] 116/86 Blood Pressure Mean Blood Pressure Mean [Right Arm] 96 Blood Pressure Source [Right Arm] Automatic Cuff Blood Pressure Position [Right Arm] Sitting 02 Sat by Pulse Oximetry 98 97 95 Oxygen Delivery Method Room Air Room Air Room Air 08/05/23 12:01 08/05/23 12:30 08/05/23 13:00 Temperature Temperature Source Pulse Rate 126 H 128 H 126 H Pulse Rate [Right Radial] Respiratory Rate 17 16 16 Blood Pressure 104/76 L 114/81 113/72 Blood Pressure [Right Arm] Blood Pressure Mean 78 Blood Pressure Mean [Right Arm] Blood Pressure Source [Right Arm] Blood Pressure Position [Right Arm] 02 Sat by Pulse Oximetry 96 97 95 Oxygen Delivery Method Room Air Room Air Lab Data Labs: Lab Results 08/05/23 10:54: WBC 12.3 H, RBC 5.80, Hgb 17.4, Hct 55.1 H, MCV 94.9 H, MCH 30.0, MCHC 31.6 L, RDW 13.7, Plt Count 296, MPV 7.4, Neut % (Auto) 62.7, Lymph % (Auto) 23.1, [place] % (Auto) 8.4, Eos % (Auto) 4.6, Baso % (Auto) 1.2, Neut # (Auto) 7.7, Lymph # (Auto) 2.8, [place] # (Auto) 1.0, Eos # (Auto) 0.6 H, Baso # (Auto) 0.2, D-Dimer 0.33, Sodium 134 L, Potassium 5.3 H, Chloride 103, Carbon Dioxide 22, Anion Gap 14.3, BUN 21 H, Creatinine 0.90, Estimated Creat Clear 109, Estimated GFR 86, Est GFR ( Amer) 103, Glucose 250 H, Calcium 9.1, Magnesium 1.8, Total Bilirubin 1.0, AST 61 H, ALT 97 H, Alkaline Phosphatase 33 L, Troponin I 0.02, NT-Pro-B Natriuret Pep 1750 H, Total Protein 7.6, Albumin 4.6, Globulin 3.0, Albumin/Globulin Ratio 1.5, TSH 3.23, Thyroxine (T4) 8.7, Digoxin 0.80 08/05/23 10:59: Potassium 4.9 08/05/23 10:54 08/05/23 10:59 Response Orders (Tests/Meds): ED MEDICATIONS Discontinued Medications Generic Name Dose Route Start Last Admin Trade Name Freq PRN Reason Stop Dose Admin Aspirin 324 mg 08/05/23 10:56 08/05/23 11:03 Aspirin 81mg Chewable Tablet PO 08/05/23 10:57 324 mg ONCE ONE Administration Furosemide 40 mg 08/05/23 12:59 08/05/23 13:10 Furosemide 40mg/4ml Vial IV 08/05/23 13:00 40 mg ONCE ONE Administration Sodium Chloride 1,000 mls @ 999 mls/hr 08/05/23 10:56 08/05/23 11:03 Sod Chlor 0.9% 1000ml Bag IV 08/05/23 11:56 999 mls/hr .Q1H1M ONE Administration Magnesium Sulfate 2 gm in 50 mls @ 50 mls/hr 08/05/23 11:22 08/05/23 11:41 Magnesium Sulfate 2gm/50ml Premix IV 08/05/23 12:21 50 mls/hr ONCE ONE Administration Metoprolol Tartrate 5 mg 08/05/23 11:52 08/05/23 12:05 Metoprolol Tartrate 5mg/5ml Vial IV 08/05/23 11:53 5 mg ONCE ONE Administration Metoprolol Tartrate 5 mg 08/05/23 12:41 08/05/23 12:47 Metoprolol Tartrate 5mg/5ml Vial IV 08/05/23 12:42 5 mg ONCE ONE Administration ORDERS Category Date Time Status XR chest portable Stat Exams 08/05/23 10:56 Completed Brain Natriuretic Peptide Stat Lab 08/05/23 10:54 Completed Complete Blood Count Auto Diff Stat Lab 08/05/23 10:54 Completed Comprehensive Metabolic Panel Stat Lab 08/05/23 10:54 Completed D-Dimer Stat Lab 08/05/23 10:54 Completed Digoxin Stat Lab 08/05/23 10:54 Completed Magnesium Stat Lab 08/05/23 10:54 Completed Potassium Stat Lab 08/05/23 10:59 Completed T4 (Thyroxine) Stat Lab 08/05/23 10:54 Completed TSH [Thyroid Stimulating Hormone] Stat Lab 08/05/23 10:54 Completed Troponin I Q3H Lab 08/05/23 14:00 Ordered Troponin I Q3H Lab 08/05/23 17:00 Ordered Troponin I Stat Lab 08/05/23 10:54 Completed MDM Narrative Medical Decision Narrative: 62-year-old male history of hypertension, hyperlipidemia, diabetes, A-fib on Xarelto/metoprolol/digoxin presenting with tachycardia. Patient states that he was fine yesterday, 08/03. Went to bed around 9 PM on 08/03. In the middle of the night, woke up and felt like his heart was racing. [place] short of breath and chest pressure with exertion as well. Nonpositional shortness of breath or chest pressure. Has not been nauseated, diaphoretic, coughing, febrile, or any other concerns. History was obtained via conversation with patient and . On arrival, patient hemodynamically stable, alert, oriented x4, appropriate, GCS 15, moving all extremities spontaneously, pupils equal and reactive to light. Full physical exam performed and significant for well-appearing male no acute distress. Conversational and appropriate. Patient is tachycardic with normal and regular rhythm. No murmurs, gallops, or rubs. Pulses equal and symmetric. Saturating appropriately on room air, normotensive. Afebrile. Neurologically intact Differential includes CHF, medication noncompliance, microvascular coronary artery disease, CHF, ACS, NC, coronary artery dissection, pneumothorax, PE, dissection, pericarditis, myocarditis, pneumothorax, aortic aneurysm, pneumonia, bronchitis, among others. Patient was given 324 mg aspirin, fluids for symptomatic management and correction of underlying abnormalities. Workup independently interpreted and significant for mild leukocytosis 12.3. Nonactionable. Chemistry nonactionable. Troponin 0.02. BNP elevated at 1750, unknown if this is the cause or result of new tachycardia. See radiology read for full review of final results. Independent interpretation of EKG shows sinus tachycardia 128 bpm with T wave inversions in V2 and V3 without reciprocal change. He does have scooped ST segments consistent with digoxin use. ID, QRS, QT intervals within normal limits. Incomplete left bundle branch block. Patient placed on continuous cardiac monitoring and continuous pulse ox with initial blood pressure 103/66, heart rate 129, saturation 96 on room air. Heart score 5. On reevaluation, patient remains tachycardic after metoprolol 5 mg x 3. D-dimer ordered, this was negative. Hospital medicine was contacted for evaluation for admission. Recommended dimer, that was ordered and resulted. Given no other further cause for patient's tachycardia, deemed appropriate for inpatient admission and cardiology evaluation. Given patient presentation, workup, history, this most likely represents persistent, symptomatic sinus tachycardia. Because patient high risk for clinical decompensation, deemed appropriate for inpatient admission. Results were relayed to patient who voiced understanding and patient was agreeable to inpatient admission and management. Patient was admitted to the hospital for further definitive management.
[2023-08-05 11:20] LABS: Alanine Aminotransferase 97 U/L (12-78); Albumin Level 4.6 g/dl (3.5-5.0); Albumin/Globulin Ratio 1.5 (1.1-1.8); Alkaline Phosphatase 33 U/L (38-126); Anion Gap 14.3 mEq/L (5-15); Aspartate Amino Transferase 61 U/L (17-59); Blood Urea Nitrogen 21 mg/dl (9-20); Calcium 9.1 mg/dl (8.4-10.2); Carbon Dioxide 22 mmol/L (22.0-30.0); Chloride 103 mmol/L (98-107); Creatinine Clearance Estimated 109 mL/min (50-200); Estimated Glomerular Filt Rate 86 ml/min (>60); GFR (African American) 103 ML/MIN (>60); Glucose 250 mg/dl (74-100); Magnesium 1.8 mg/dl (1.6-2.3); Sodium 134 mmol/L (136-145); Total Protein,Serum 7.6 g/dl (6.3-8.2)
[2023-08-05 11:38] LABS: T4 (Thyroxine) 8.7 ug/dl (5.53-11.0)
[2023-08-05] MEDS: MAGNESIUM SULFATE IN WATER 2 GM/50 ML PIGGYBACK IV (11:41)
[2023-08-05 11:51] LABS: Thyroid Stimulating Hormone 3.23 uIU/mL (0.465-4.68)
[2023-08-05 11:56] LABS: Potassium 5.3 mmoL/L (3.5-5.1)
[2023-08-05] MEDS: METOPROLOL TARTRATE 5MG/5ML VIAL 5 MG IV ×3 (12:05→15:10)
[2023-08-05 12:47] LABS: Potassium 4.9 mmoL/L (3.5-5.1)
[2023-08-05 12:54] LABS: NT Pro Brain Natriuretic Pep. 1750 pg/mL (0-125)
[2023-08-05 12:55] LABS: Troponin I 0.02 ng/ml (0.00-0.034)
--- NOTE | 2023-08-05 13:05 | PC.NURSE ---
on phone with HOSPITALIST
--- NOTE | 2023-08-05 13:07 | PC.NURSE ---
spoke with housekeeping room inspector for bed placement. informed by housekeeping room inspector no beds available at this time, when one become available pt will be moved.
[2023-08-05] MEDS: FUROSEMIDE 40MG/4ML VIAL 40 MG IV (13:10)
--- NOTE | 2023-08-05 13:11 | PC.NURSE ---
Admissions notified of pt admit to room 214 for CHF and Tachycardia to . OBS
[2023-08-05 13:18] LABS: D-Dimer 0.33 ug/mL (0.0-0.5)
--- NOTE | 2023-08-05 13:27 | PC.NURSE ---
report called to anny on second floor
--- NOTE | 2023-08-05 13:50 | PC.NURSE ---
arrived by w/c from ED
[2023-08-05 14:57] LABS: POC Glucose,Bedside 192 (70-110)
--- NOTE | 2023-08-05 15:04 | INFXCTL.NOTE ---
MD notified that patient's heart rate is sustaining > 130 heart rate. Patient asymptomatic. one time dose of 5mg IV of metoprolol. Heart rate did not change.
[2023-08-05 15:12] LABS: Troponin I 0.03 ng/ml (0.00-0.034)
--- NOTE | 2023-08-05 15:20 | PC.NURSE ---
MD notified as patient's heart rate continuing to sustain >130 bpm. One dose of cardizem 10 mg IVP ordered. Patient's heart rate went down the 80s.
[2023-08-05] MEDS: dilTIAZem 25MG/5ML VIAL 10 MG IV (15:45)
[2023-08-05] MEDS: ACETAMINOPHEN 325MG TAB 650 MG PO (15:53)
--- NOTE | 2023-08-05 16:07 | ECG_ITS ---
APPROVED REPORT Exam: Resting ECG HR:88 bpm ECG Measurements Heart Rate 88 AXES QRSd 116 QRS 14 QT 348 T 250 QTc 394 Conclusion ATRIAL FLUTTER/TACHYCARDIA LOW QRS VOLTAGE IN PRECORDIAL LEADS [QRS DEFLECTION < 1.0 mV IN CHEST LEADS] POSSIBLE ANTERIOR MYOCARDIAL INFARCTION , PROBABLY OLD [30 ms Q WAVE IN V3/V4, OR R < 0.2 mV IN V4] ABNORMAL RHYTHM ECG UNCONFIRMED REPORT Electronically signed by : Alvarez Sow MD 08/06/2023 17:56:26
[2023-08-05 16:28] LABS: Thyroid Stimulating Hormone 3.26 uIU/mL (0.465-4.68)
--- NOTE | 2023-08-05 18:00 | ECG_ITS ---
APPROVED REPORT Exam: Resting ECG HR:131 bpm ECG Measurements Heart Rate 131 AXES QRSd 104 QRS 19 QT 250 T 53 QTc 327 Conclusion ATRIAL FLUTTER/TACHYCARDIA WITH RAPID VENTRICULAR RESPONSE POSSIBLE ANTERIOR MYOCARDIAL INFARCTION , PROBABLY OLD [30 ms Q WAVE IN V3/V4, OR R < 0.2 mV IN V4] ABNORMAL RHYTHM ECG UNCONFIRMED REPORT Electronically signed by : Alvarez Sow MD 08/06/2023 17:56:08
[2023-08-05] MEDS: RIVAROXABAN 10MG TABLET 20 MG PO (18:07)
[2023-08-05 18:11] LABS: Troponin I 0.02 ng/ml (0.00-0.034)
--- NOTE | 2023-08-05 18:22 | EXP.HP ---
History of Present Illness *Admission Date: 08/05/23 *Reason for visit:: SOB/Chest pain *History of present illness: patient is a 62-year-old male with past medical history of diabetes mellitus atrial fibrillation hypertension hyperlipidemia who presented to hospital due to shortness of breath. According to the patient he has been having shortness of breath since yesterday night, he felt palpitations. He also has chest pain with exertion. He denied fever chills diarrhea constipation dysuria nausea vomiting. On further evaluation patient was found to have leukocytosis of 12.3 hyperglycemia, elevated BNP PFSH [facility] Disclaimer: The information contained in this section may have been updated after the patient was seen, as this information can be updated by other users. Medical History Anal fistula Diabetes (~12/06/17) Hyperlipidemia Hypertension Vitamin D deficiency (~12/06/17) Family History Other Family history of acute congestive heart failure Family history of diabetes mellitus type II Family history of hyperlipidemia Family history of hypertension Family history of myocardial infarction Family history of stroke Social History (Updated 08/05/23 @ 14:18 by Christa Edmond RN) Smoking Status: Former smoker tobacco type: cigarettes packs per day: 1 and cigars alcohol intake: current substance use type: denies use current occupational status: employed Travel in the last 8 weeks: None Review of Systems Review of Systems Review of systems (narrative): as per [facility] Meds Home Medications and Allergies Home Medications Medication Instructions Recorded Confirmed Type aspirin 81 mg tablet,delayed 81 mg PO DAILY Heart disease 09/16/22 08/05/23 History release blood sugar diagnostic (Blood 09/16/22 08/05/23 History Glucose Test strips) blood-glucose meter (Blood Glucose 09/16/22 08/05/23 History Monitoring kit) lancets 30 gauge and blood glucose 09/16/22 08/05/23 History strips combo pack atorvastatin 10 mg tablet See Rx Instructions .Route 12/19/22 08/05/23 Rx .COMPLEX #90 tabs digoxin 125 mcg (0.125 mg) tablet 125 mcg PO DAILY 30 days #30 tabs 12/19/22 08/05/23 Rx (Digox) metoprolol succinate 100 mg 100 mg PO BID 30 days #180 tabs 05/21/23 08/05/23 Rx tablet,extended release 24 hr rivaroxaban 20 mg tablet 20 mg PO HS #90 tabs 05/22/23 08/05/23 Rx semaglutide 0.25 mg or 0.5 mg (2 0.25 mg (0.368 mL) SQ WEEKLY #3 mL 06/27/23 08/05/23 Rx mg/3 mL) subcutaneous pen injector (Ozempic) lisinopril 20 mg tablet 20 mg PO BID #180 tabs 07/04/23 08/05/23 Rx metformin 1,000 mg tablet See Rx Instructions .Route 08/01/23 08/05/23 Rx .COMPLEX #60 tabs sitagliptin phos 50 mg-metformin 1 tab PO BID 08/05/23 08/05/23 History ER 1,000 mg tablet,extend rel 24h mp (Janumet XR) New Prescriptions to Start Prescriptions: Allergies Allergy/AdvReac Type Severity Reaction Status Date / Time No Known Allergies Allergy Verified 08/05/23 13:58 Exam Data for Last 24 hours Vital signs and Labs for Last 24 Hours: Temp Pulse Resp BP Pulse Ox O2 Del Method 97.6 F 80 20 129/95 H 96 Room Air 08/05/23 14:15 08/05/23 16:00 08/05/23 14:15 08/05/23 14:15 08/05/23 14:15 08/05/23 14:15 Laboratory Results - last 24 hr 08/05/23 10:54: WBC 12.3 H, RBC 5.80, Hgb 17.4, Hct 55.1 H, MCV 94.9 H, MCH 30.0, MCHC 31.6 L, RDW 13.7, Plt Count 296, MPV 7.4, Neut % (Auto) 62.7, Lymph % (Auto) 23.1, [place] % (Auto) 8.4, Eos % (Auto) 4.6, Baso % (Auto) 1.2, Neut # (Auto) 7.7, Lymph # (Auto) 2.8, [place] # (Auto) 1.0, Eos # (Auto) 0.6 H, Baso # (Auto) 0.2, D-Dimer 0.33, Sodium 134 L, Potassium 5.3 H, Chloride 103, Carbon Dioxide 22, Anion Gap 14.3, BUN 21 H, Creatinine 0.90, Estimated Creat Clear 109, Estimated GFR 86, Est GFR ( Amer) 103, Glucose 250 H, Calcium 9.1, Magnesium 1.8, Total Bilirubin 1.0, AST 61 H, ALT 97 H, Alkaline Phosphatase 33 L, Troponin I 0.02, NT-Pro-B Natriuret Pep 1750 H, Total Protein 7.6, Albumin 4.6, Globulin 3.0, Albumin/Globulin Ratio 1.5, TSH 3.23, Thyroxine (T4) 8.7, Digoxin 0.80 08/05/23 10:59: Potassium 4.9 08/05/23 14:10: Troponin I 0.03, TSH 3.26 08/05/23 14:50: POC Glucose 192 H 08/05/23 17:15: Troponin I 0.02 I & O for Last 24 hours: Intake & Output 08/02/23 08/03/23 08/04/23 08/05/23 23:59 23:59 23:59 23:59 Intake Total 240 / 240 Output Total 0 / 0 Balance 240 / 240 Weight 97.324 kg Constitutional Constitutional: no acute distress *Routine HEENT Exam Head: Present normocephalic Eye: Present EOMI and PERRL ENT: Present mucous membranes moist *Routine Neck Exam Neck: Present supple; Absent lymphadenopathy *Routine Respiratory Exam Respiratory: Present CTA bilaterally *Routine Cardiovascular Exam Cardiovascular: Present tachycardia and irregular rhythm *Routine Abdominal Exam Abdominal: Present soft and normoactive bowel sounds; Absent tenderness *Routine Rectal Exam Rectal:: deferred *Routine Genitalia Exam Genitalia:: deferred *Routine Extremities Exam Extremities: Absent cyanosis, clubbing or edema *Routine Skin Exam Skin: Present warm; Absent rash *Routine Neurological Exam Neurological: Present alert and oriented X3 Assessment and Plan *Assessment and plan (1) Atrial tachycardia: Status: Acute Category: Medical Code(s): I47.19 - Other supraventricular tachycardia (2) Type 2 diabetes mellitus: Status: Acute Category: Medical Code(s): E11.9 - Type 2 diabetes mellitus without complications (3) Atrial fibrillation: Status: Acute Qualifiers: Atrial fibrillation type: paroxysmal Qualified Code(s): I48.0 - Paroxysmal atrial fibrillation Category: Medical Code(s): I48.91 - Unspecified atrial fibrillation (4) Atrial flutter with rapid ventricular response: Status: Acute Category: Medical Code(s): I48.92 - Unspecified atrial flutter (5) Hypertension: Status: Chronic Qualifiers: Hypertension type: unspecified Qualified Code(s): I10 - Essential (primary) hypertension Category: Medical Code(s): I10 - Essential (primary) hypertension (6) Diabetes: Status: Chronic Qualifiers: Diabetes mellitus complication status: with other specified complication 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 Diabetes mellitus type: other specified (including KEVIN) Qualified Code(s): E13.69 - Other specified diabetes mellitus with other specified complication Category: Medical Code(s): E11.9 - Type 2 diabetes mellitus without complications (7) Hyperlipidemia: Status: Chronic Qualifiers: Hyperlipidemia type: unspecified Qualified Code(s): E78.5 - Hyperlipidemia, unspecified Category: Medical Code(s): E78.5 - Hyperlipidemia, unspecified Plan patient is a 62-year-old male with past medical history of diabetes mellitus atrial fibrillation hypertension hyperlipidemia who presented to hospital due to shortness of breath. According to the patient he has been having shortness of breath since yesterday night, he felt palpitations. He also has chest pain with exertion. He denied fever chills diarrhea constipation dysuria nausea vomiting. On further evaluation patient was found to have leukocytosis of 12.3 hyperglycemia, elevated BNP Assessment and plan Shortness of breath on exertion likely secondary to CHF Start 40 IV twice daily Lasix Low-salt diet diabetic diet Chest pain likely secondary to atrial S/fibrillation with RVR S/p multiple doses of IV Lopressor, IV Cardizem start on IV cardizem gtt Monitor on cardiac telemetry Leukocytosis likely reactive-monitor Hyponatremia Sodium level 134-monitor DM - ISS DVT prophylaxis-on Xarelto
[2023-08-05] MEDS: dilTIAZem HCL 100 MG in 0.9 % SODIUM CHLORIDE 100 ML IV (18:44)
--- NOTE | 2023-08-05 18:45 | PC.NURSE ---
Patient's heart rate started to sustain >130 bpm again. MD notified and ordered cardizem drip at 5mg per hr. and titrate as needed.
--- NOTE | 2023-08-05 18:57 | PC.NURSE ---
diltiazem gtt started at 1846 at 5 mg/hr, titrated up to 10 mg/hr at 1851
[2023-08-05] MEDS: LISINOPRIL 20MG TABLET 20 MG PO (20:19)
[2023-08-05] MEDS: METOPROLOL SUCCINATE XL 100MG TABLET 100 MG PO (20:19)
[2023-08-05] MEDS: ATORVASTATIN 10MG TABLET 10 MG PO (20:19)
[2023-08-05 21:21] LABS: POC Glucose,Bedside 225 (70-110)
--- NOTE | 2023-08-05 23:02 | PC.NURSE ---
REPORT GIVEN TO RACHELLE DOUGLAS RN AT THIS TIME
[2023-08-06] VITALS (14 sets, daily range): BP systolic 81–110; BP diastolic 54–87; PULSE 86–134; RESP 12–18; TEMP 36.6–37; O2SAT 92–97; BMI 32.5
[2023-08-06] MEDS: dilTIAZem HCL 100 MG in 0.9 % SODIUM CHLORIDE 100 ML 15 MG IV ×2 (02:39→19:54)
[2023-08-06 06:09] LABS: Basophils # 0.1 K/mm3 (0-0.2); Basophils % 0.7 % (0.1-2.0); Eosinophils # 0.4 K/mm3 (0.0-0.4); Eosinophils % 4.7 % (0.1-12.0); Hematocrit 49.2 % (42.0-52.0); Hemoglobin 16.4 g/dL (14.1-18.0); Lymphocytes # 2.5 K/mm3 (0.7-4.5); Lymphocytes % 27.9 % (10-50); Mean Corpuscular HGB Conc 33.3 g/dL (31.8-35.4); Mean Corpuscular Hemoglobin 30.4 pg (27.0-31.2); Mean Corpuscular Volume 91.5 fl (80-94); Mean Platelet Volume 7.8 fl (7.4-10.4); Monocytes # 0.7 K/mm3 (0.1-1.0); Monocytes % 7.8 % (1.7-9.3); Neutrophils # 5.3 K/mm3 (1.8-7.8); Neutrophils % 58.8 % (37.0-80.0); Platelet Count 229 K/mm3 (142-424); Red Blood Count 5.38 M/mm3 (4.60-6.20); Red Cell Distribution Width 13.6 % (11.5-17.5)
[2023-08-06 06:22] LABS: Anion Gap 11.3 mEq/L (5-15); Blood Urea Nitrogen 21 mg/dl (9-20); Calcium 8.6 mg/dl (8.4-10.2); Carbon Dioxide 27 mmol/L (22.0-30.0); Chloride 100 mmol/L (98-107); Creatinine Clearance Estimated 108 mL/min (50-200); Estimated Glomerular Filt Rate 98 ml/min (>60); GFR (African American) 119 ML/MIN (>60); Glucose 251 mg/dl (74-100); Potassium 4.3 mmoL/L (3.5-5.1); Sodium 134 mmol/L (136-145)
[2023-08-06 06:58] LABS: POC Glucose,Bedside 248 (70-110)
--- NOTE | 2023-08-06 07:38 | HMH.PHAINT1 ---
Pharmacy Intervention Comments: MEDICATION RECONCILIATION COMPLETED ON PATIENT USING EXTERNAL FILL HISTORY FROM PHARMACY AND LIST FROM PCP OFFICE. -GUERO SHAW, [place]
[2023-08-06] MEDS: ASPIRIN EC 81MG TABLET 81 MG PO (11:08)
[2023-08-06] MEDS: DIGOXIN 0.125MG TABLET 125 MCG PO (11:08)
[2023-08-06] MEDS: METOPROLOL SUCCINATE XL 100MG TABLET 100 MG PO ×2 (11:09→21:10)
[2023-08-06] MEDS: dilTIAZem HCL 100 MG in 0.9 % SODIUM CHLORIDE 100 ML 10 MG IV (12:24)
--- NOTE | 2023-08-06 14:18 | P.PN_ITS ---
Subjective *Date: 08/06/23 *Time: 14:18 Interval history: patient was seen and evaluated at the bedside. He felt lightheaded last night, denies chest pain, shortness of breath, nausea, vomiting, abdominal pain. Exam Data for Last 24 hours Vital signs and Labs for Last 24 Hours: Temp Pulse Resp BP Pulse Ox O2 Del Method 98.1 F 98 H 18 92/65 L 97 Room Air 08/06/23 13:56 08/06/23 11:08 08/06/23 10:00 08/06/23 10:00 08/06/23 10:00 08/06/23 13:00 Laboratory Results - last 24 hr 08/05/23 14:10: Troponin I 0.03, TSH 3.26 08/05/23 14:50: POC Glucose 192 H 08/05/23 17:15: Troponin I 0.02 08/05/23 21:03: POC Glucose 225 H 08/06/23 05:08: WBC 9.0 D, RBC 5.38, Hgb 16.4, Hct 49.2, MCV 91.5, MCH 30.4, MCHC 33.3, RDW 13.6, Plt Count 229, MPV 7.8, Neut % (Auto) 58.8, Lymph % (Auto) 27.9, [place] % (Auto) 7.8, Eos % (Auto) 4.7, Baso % (Auto) 0.7, Neut # (Auto) 5.3, Lymph # (Auto) 2.5, [place] # (Auto) 0.7, Eos # (Auto) 0.4, Baso # (Auto) 0.1, Sod ium 134 L, Potassium 4.3, Chloride 100, Carbon Dioxide 27, Anion Gap 11.3, BUN 21 H, Creatinine 0.80, Estimated Creat Clear 108, Estimated GFR 98, Est GFR ( Amer) 119, Glucose 251 H, Calcium 8.6 08/06/23 06:17: POC Glucose 248 H I & O for Last 24 hours: Intake & Output 08/03/23 08/04/23 08/05/23 08/06/23 23:59 23:59 23:59 23:59 Intake Total 282.583 / 282.583 240.000 / 240.000 Output Total 0 / 0 800 / 800 Balance 282.583 / 282.583 -560.000 / -560.000 Weight 97.324 kg 99.79 kg Constitutional Constitutional: no acute distress *Routine HEENT Exam Head: Present normocephalic Eye: Present EOMI and PERRL ENT: Present mucous membranes moist *Routine Neck Exam Neck: Present supple; Absent lymphadenopathy *Routine Respiratory Exam Respiratory: Present CTA bilaterally *Routine Cardiovascular Exam Cardiovascular: Present tachycardia *Routine Abdominal Exam Abdominal: Present soft and normoactive bowel sounds; Absent tenderness *Routine Extremities Exam Extremities: Absent cyanosis, clubbing or edema *Routine Skin Exam Skin: Present warm; Absent rash *Routine Neurological Exam Neurological: Present alert and oriented X3 Assessment and Plan *Assessment and plan (1) Atrial tachycardia: Status: Acute Category: Medical Code(s): I47.19 - Other supraventricular tachycardia (2) Type 2 diabetes mellitus: Status: Acute Category: Medical Code(s): E11.9 - Type 2 diabetes mellitus without complications (3) Atrial fibrillation: Status: Acute Qualifiers: Atrial fibrillation type: paroxysmal Qualified Code(s): I48.0 - Paroxysmal atrial fibrillation Category: Medical Code(s): I48.91 - Unspecified atrial fibrillation (4) Atrial flutter with rapid ventricular response: Status: Acute Category: Medical Code(s): I48.92 - Unspecified atrial flutter (5) Hypertension: Status: Chronic Qualifiers: Hypertension type: unspecified Qualified Code(s): I10 - Essential (primary) hypertension Category: Medical Code(s): I10 - Essential (primary) hypertension (6) Diabetes: Status: Chronic Qualifiers: Diabetes mellitus type: other specified (including KEVIN) Diabetes mellitus usp insulin use: 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 Diabetes mellitus complication status: with other specified complication Qualified Code(s): E13.69 - Other specified diabetes mellitus with other specified complication Category: Medical Code(s): E11.9 - Type 2 diabetes mellitus without complications (7) Hyperlipidemia: Status: Chronic Qualifiers: Hyperlipidemia type: unspecified Qualified Code(s): E78.5 - Hyperlipidemia, unspecified Category: Medical Code(s): E78.5 - Hyperlipidemia, unspecified Plan patient is a 62-year-old male with past medical history of diabetes mellitus atrial fibrillation hypertension hyperlipidemia who presented to hospital due to shortness of breath. According to the patient he has been having shortness of breath since yesterday night, he felt palpitations. He also has chest pain with exertion. He denied fever chills diarrhea constipation dysuria nausea vomiting. On further evaluation patient was found to have leukocytosis of 12.3 hyperglycemia, elevated BNP Assessment and plan Shortness of breath on exertion likely secondary to CHF contineu 40 IV twice daily Lasix Low-salt diet diabetic diet Chest pain likely secondary to atrial S/fibrillation with RVR S/p multiple doses of IV Lopressor, IV Cardizem start on IV cardizem gtt cardiology consulted, await recommendations Monitor on cardiac telemetry Leukocytosis likely reactive-monitor Hyponatremia - monitor DM - ISS DVT prophylaxis-on Xarelto Await cardiology plan, continue on IV cardizem
[2023-08-06] MEDS: FUROSEMIDE 40MG/4ML VIAL 40 MG IV (15:35)
[2023-08-06] MEDS: RIVAROXABAN 10MG TABLET 20 MG PO (16:56)
--- NOTE | 2023-08-06 17:18 | EXP.CARD.CON ---
History of Present Illness History of Present Illness Consult date: 08/06/23 Requesting physician: Mumtaz Pope Chief complaint: palpitations History of present illness: This is a 62-year-old gentleman who was admitted to the hospital with atrial fibrillation with RVR. He presented to the hospital with complaints of racing of the heart. He states that he was also short of breath and having an aching sensation in his chest. He states that he has been having the palpitations since he woke up in the middle of the night the day prior to his admission. The patient states that he was also having some pain in his chest with exertion. He states that when he got up the next morning his heart rate was in the 120s and he could not get his heart rate any lower than around 102 bpm. He states that he did take an extra metoprolol through the night and his heart rate did drop to 78 but went right back up into the 120s. He denies any lower extremity edema. He denies any fever, chills, nausea, vomiting, diarrhea, PND or orthopnea. [facility] Disclaimer: The information contained in this section may have been updated after the patient was seen, as this information can be updated by other users. Medical History (Updated 08/06/23 @ 17:21 by Jocelyne Robertson APRN) Anal fistula Atrial flutter Diabetes (~12/06/17) Hyperlipidemia Hypertension Vitamin D deficiency (~12/06/17) Family History Other Family history of acute congestive heart failure Family history of diabetes mellitus type II Family history of hyperlipidemia Family history of hypertension Family history of myocardial infarction Family history of stroke Social History (Updated 08/05/23 @ 14:18 by Christa Edmond RN) Smoking Status: Former smoker tobacco type: cigarettes packs per day: 1 and cigars alcohol intake: current substance use type: denies use current occupational status: employed Travel in the last 8 weeks: None Review of Systems Review of Systems Review of systems:: pertinent systems reviewed and negative unless documented below Constitutional Constitutional: Reports system reviewed and no additional complaints, except as documented Eyes Eyes: Reports system reviewed and no additional complaints, except as documented ENT Ears, Nose, Mouth, and Throat: Reports system reviewed and no additional complaints, except as documented *Cardiovascular Cardiovascular: Reports system reviewed and no additional complaints, except as documented, Reports chest pain with activity, Reports dyspnea on exertion, Reports palpitations and Reports rapid heart rate *Respiratory Respiratory: Reports system reviewed and no additional complaints, except as documented and Reports dyspnea on exertion *Gastrointestinal Gastrointestinal: Reports system reviewed and no additional complaints, except as documented *Genitourinary Genitourinary: Reports system reviewed and no additional complaints, except as documented *Musculoskeletal Musculoskeletal: Reports system reviewed and no additional complaints, except as documented Integumentary/Breasts Skin/Breast: Reports system reviewed and no additional complaints, except as documented *Neurologic Neurologic: Reports system reviewed and no additional complaints, except as documented Psychiatric Psychiatric: Reports system reviewed and no additional complaints, except as documented Endocrine Endocrine: Reports system reviewed and no additional complaints, except as documented and Reports palpitations Hematologic/Lymphatic Hematologic/Lymphatic: Reports system reviewed and no additional complaints, except as documented Allergic/Immunologic Allergic/Immunologic: Reports system reviewed and no additional complaints, except as documented Exam Data for Last 24 hours Vital signs and Labs for Last 24 Hours: Temp Pulse Resp BP Pulse Ox O2 Del Method 98.0 F 118 H 18 105/73 L 94 L Room Air 08/06/23 16:00 08/06/23 16:06 08/06/23 16:06 08/06/23 16:06 08/06/23 16:06 08/06/23 17:00 Laboratory Results - last 24 hr 08/05/23 17:15: Troponin I 0.02 08/05/23 21:03: POC Glucose 225 H 08/06/23 05:08: WBC 9.0 D, RBC 5.38, Hgb 16.4, Hct 49.2, MCV 91.5, MCH 30.4, MCHC 33.3, RDW 13.6, Plt Count 229, MPV 7.8, Neut % (Auto) 58.8, Lymph % (Auto) 27.9, [place] % (Auto) 7.8, Eos % (Auto) 4.7, Baso % (Auto) 0.7, Neut # (Auto) 5.3, Lymph # (Auto) 2.5, [place] # (Auto) 0.7, Eos # (Auto) 0.4, Baso # (Auto) 0.1, Sodium 134 L, Potassium 4.3, Chloride 100, Carbon Dioxide 27, Anion Gap 11.3, BUN 21 H, Creatinine 0.80, Estimated Creat Clear 108, Estimated GFR 98, Est GFR ( Amer) 119, Glucose 251 H, Calcium 8.6 08/06/23 06:17: POC Glucose 248 H I & O for Last 24 hours: Intake & Output 08/03/23 08/04/23 08/05/23 08/06/23 23:59 23:59 23:59 23:59 Intake Total 282.583 / 282.583 995.167 / 995.167 Output Total 0 / 0 1100 / 1100 Balance 282.583 / 282.583 -104.833 / -104.833 Weight 214 lb 9 oz 220 lb Constitutional Constitutional: no acute distress and average body habitus *Routine HEENT Exam Head: Present normocephalic and atraumatic ENT: Present mucous membranes moist *Routine Neck Exam Neck: Present supple, full ROM and normal carotid upstroke; Absent JVD, carotid bruit or lymphadenopathy *Routine Respiratory Exam Respiratory: Present CTA bilaterally, normal respiratory effort, able to speak in complete sentences and symmetric chest movement *Routine Cardiovascular Exam Cardiovascular: Present Normal S1, Normal S2, tachycardia and irregular rhythm; Absent murmur or gallop *Routine Abdominal Exam Abdominal: Present soft and normoactive bowel sounds; Absent tenderness, distended or organomegaly *Routine Extremities Exam Extremities: Present full ROM, pulses intact and normal capillary refill; Absent cyanosis, clubbing or edema *Routine Skin Exam Skin: Present intact and warm; Absent erythema *Routine Neurological Exam Neurological: Present alert, oriented X3 and CN II-XII intact; Absent sensory deficit or motor deficit Routine Psychiatric Exam Psychiatric: Present normal affect Meds Home Medications and Allergies Home Medications Medication Instructions Recorded Confirmed Type aspirin 81 mg tablet,delayed 81 mg PO DAILY Heart disease 09/16/22 08/05/23 History release blood sugar diagnostic (Blood 09/16/22 08/05/23 History Glucose Test strips) blood-glucose meter (Blood Glucose 09/16/22 08/05/23 History Monitoring kit) lancets 30 gauge and blood glucose 09/16/22 08/05/23 History strips combo pack digoxin 125 mcg (0.125 mg) tablet 125 mcg PO DAILY 30 days #30 tabs 12/19/22 08/05/23 Rx (Digox) metoprolol succinate 100 mg 100 mg PO BID 30 days #180 tabs 05/21/23 08/05/23 Rx tablet,extended release 24 hr lisinopril 20 mg tablet 20 mg PO BID #180 tabs 07/04/23 08/05/23 Rx atorvastatin 10 mg tablet 10 mg PO DAILY Cholesterol 08/06/23 08/06/23 History dapagliflozin propanediol 10 mg 10 mg PO DAILY Diabetes 08/06/23 08/06/23 History tablet (Farxiga) metformin 1,000 mg tablet 1,000 mg PO BIDWMEAL Diabetes 08/06/23 08/06/23 History rivaroxaban 20 mg tablet (Xarelto) 20 mg PO QPMWITHMEAL Blood 08/06/23 08/06/23 History thinner/afib semaglutide 0.25 mg or 0.5 mg (2 0.25 mg SQ WEEKLY Diabetes 08/06/23 08/05/23 History mg/3 mL) subcutaneous pen injector (Ozempic) New Prescriptions to Start Prescriptions: Allergies Allergy/AdvReac Type Severity Reaction Status Date / Time No Known Allergies Allergy Verified 08/05/23 13:58 Assessment and Plan *Assessment and plan (1) Atrial flutter: Status: Acute Qualifiers: Atrial flutter type: unspecified Qualified Code(s): I48.92 - Unspecified atrial flutter Category: Medical Code(s): I48.92 - Unspecified atrial flutter (2) Diabetes: Status: Chronic Qualifiers: Diabetes mellitus complication status: with other specified complication Diabetes mellitus intermodal customer service insulin use: unspecified senior living insulin use status Diabetes mellitus type: other specified (including KEVIN) Qualified Code(s): E13.69 - Other specified diabetes mellitus with other specified complication Category: Medical Code(s): E11.9 - Type 2 diabetes mellitus without complications (3) Hyperlipidemia: Status: Chronic Qualifiers: Hyperlipidemia type: unspecified Qualified Code(s): E78.5 - Hyperlipidemia, unspecified Category: Medical Code(s): E78.5 - Hyperlipidemia, unspecified (4) Hypertension: Status: Chronic Qualifiers: Hypertension type: unspecified Qualified Code(s): I10 - Essential (primary) hypertension Category: Medical Code(s): I10 - Essential (primary) hypertension Plan Plan: 1. The patient was admitted to the hospital with atrial flutter with RVR. The patient remains in atrial flutter at this time with a rate in the low 100s. The patient did rule out for an AL. No plans for invasive left cardiac catheterization at this time. 2. The patient has been started on a diltiazem drip for the atrial fibrillation/flutter with RVR. He remains tachycardic at this time. Will increase his diltiazem drip to 15 to get better rate control of his atrial flutter with RVR. 3. Will get an echocardiogram to evaluate his LV function. 4. If the patient does not convert by morning then we will plan for AC and cardioversion in the morning. The patient states that he may have missed a dose or 2 of his anticoagulation over the last few weeks. 5. The patient will be n.p.o. after midnight in preparation for possible AC and cardioversion in the morning. 6. Continue his home dose of digoxin and metoprolol. 7. Continue diltiazem drip at this time. 8. Continue Xarelto for long-term anticoagulation. 9. Further recommendations were made pending the patient's response to treatment. Thank you for the opportunity to participate in the care of this patient. All recommendations and orders are per Dr. Orr.
[2023-08-06 17:19] LABS: POC Glucose,Bedside 333 (70-110)
[2023-08-06 21:06] LABS: POC Glucose,Bedside 247 (70-110)
[2023-08-06] MEDS: humaLOG 100 UNITS/ML 3ML VIAL (SSI) SQ (21:10)
[2023-08-06] MEDS: ATORVASTATIN 10MG TABLET 10 MG PO (21:10)
[2023-08-06] MEDS: LISINOPRIL 20MG TABLET 20 MG PO (21:10)
[2023-08-07] VITALS (22 sets, daily range): BP systolic 70–123; BP diastolic 52–77; PULSE 55–130; RESP 10–18; TEMP 36.4–36.9; O2SAT 90–100; BMI 32.5
[2023-08-07 05:43] LABS: POC Glucose,Bedside 260 (70-110)
[2023-08-07] MEDS: humaLOG 100 UNITS/ML 3ML VIAL (SSI) SQ ×4 (06:12→21:48)
[2023-08-07 06:28] LABS: Anion Gap 10.2 mEq/L (5-15); Blood Urea Nitrogen 18 mg/dl (9-20); Calcium 8.8 mg/dl (8.4-10.2); Carbon Dioxide 27 mmol/L (22.0-30.0); Chloride 100 mmol/L (98-107); Creatinine Clearance Estimated 108 mL/min (50-200); Estimated Glomerular Filt Rate 114 ml/min (>60); GFR (African American) 138 ML/MIN (>60); Glucose 277 mg/dl (74-100); Potassium 4.2 mmoL/L (3.5-5.1); Sodium 133 mmol/L (136-145)
[2023-08-07 06:33] LABS: Basophils % 0.5 % (0.1-2.0); Eosinophils # 0.4 K/mm3 (0.0-0.4); Eosinophils % 5.4 % (0.1-12.0); Hematocrit 50.6 % (42.0-52.0); Hemoglobin 17.1 g/dL (14.1-18.0); Lymphocytes # 2.3 K/mm3 (0.7-4.5); Lymphocytes % 28.6 % (10-50); Mean Corpuscular HGB Conc 33.7 g/dL (31.8-35.4); Mean Corpuscular Hemoglobin 30.9 pg (27.0-31.2); Mean Corpuscular Volume 91.6 fl (80-94); Mean Platelet Volume 7.7 fl (7.4-10.4); Monocytes # 0.8 K/mm3 (0.1-1.0); Monocytes % 9.7 % (1.7-9.3); Neutrophils # 4.5 K/mm3 (1.8-7.8); Neutrophils % 55.9 % (37.0-80.0); Platelet Count 202 K/mm3 (142-424); Red Blood Count 5.52 M/mm3 (4.60-6.20); Red Cell Distribution Width 13.6 % (11.5-17.5)
[2023-08-07] MEDS: DIGOXIN 0.125MG TABLET 125 MCG PO (08:21)
[2023-08-07] MEDS: POLYETHYLENE GLYCOL 3350 17 GM PACKET PO (08:21)
[2023-08-07] MEDS: METOPROLOL SUCCINATE XL 100MG TABLET 100 MG PO (08:21)
[2023-08-07] MEDS: LISINOPRIL 20MG TABLET 20 MG PO ×2 (08:21→20:11)
[2023-08-07] MEDS: ASPIRIN EC 81MG TABLET 81 MG PO (08:21)
[2023-08-07] MEDS: FUROSEMIDE 40MG/4ML VIAL 40 MG IV ×2 (08:21→15:17)
[2023-08-07] MEDS: dilTIAZem HCL 100 MG in 0.9 % SODIUM CHLORIDE 100 ML 10 MG IV (09:38)
--- NOTE | 2023-08-07 11:00 | CA_ITS ---
APPROVED REPORT EXAM: Comprehensive 2D, Doppler, and color-flow Echocardiogram Cafeteria Server: Anastasiya Perkins RVT Ht: 5 ft 8 in Wt: 21lbs BSA: 0.78 BP: 134/86 mmHg Rhythm: Atrial Flutter Indications: A-FIB,CARDIOVERSION, Procedure After obtaining informed consent, patient underwent transesophageal echo in the [facility]. Type of Sedation : MAC Sedation was administered by Jarocho PetersenR.N.ACindy Sedation start time: 13:30 Case end Time: 13:45 The AC was performed without complications. Synchronized Cardioversion acheived with 150 Joules after 1 attempt(s). Rhythm following Synchronized Cardioversion: Normal Sinus Rhythm Throughout the procedure, the blood pressure, pulse oximetry, cardiac rhythm, and rate were monitored. The patient tolerated the procedure without adverse effects. Recovery from conscious sedation was uneventful and vital signs were stable. Left Ventricle The left ventricle is normal size. The left ventricular systolic function is normal. The left ventricular ejection fraction is within the normal range. There is normal left ventricular wall thickness. There is normal LV segmental wall motion. LVEF is 55%. Right Ventricle The right ventricle is normal size. The right ventricular systolic function is normal. Atria The left atrium size is normal. No thrombus is visualized in the left atrium or appendage. The right atrium size is normal. Interatrial septum is intact without evidence of ASD or PFO. Aortic Valve The aortic valve is normal in structure. The aortic valve is trileaflet. There is no aortic valvular stenosis. Trace aortic regurgitation. Mitral Valve The mitral valve is normal in structure. No evidence of mitral valve stenosis. Trace mitral valve regurgitation. Tricuspid Valve The tricuspid valve leaflets are thin and pliable. Mild tricuspid regurgitation. RVSP is normal. Pulmonic Valve The pulmonary valve is normal in structure. Trace pulmonic regurgitation. Great Vessels The aortic root is normal in size. The ascending aorta is normal in size. Pericardium There is no pericardial effusion. Other Information Study Quality: Adequate Conclusion Normal biventricular systolic function. No significant valvular stenosis or regurgitation. No evidence of LA or GEORGES thrombus. Electronically signed by : Chelsey Orr MD 08/07/2023 18:52:34
[2023-08-07 11:41] LABS: POC Glucose,Bedside 281 (70-110)
--- NOTE | 2023-08-07 11:45 | ECG_ITS ---
APPROVED REPORT Exam: Resting ECG HR:77 bpm ECG Measurements Heart Rate 77 AXES QRSd 80 QRS 27 QT 325 T -58 QTc 357 Conclusion ATRIAL FLUTTER/TACHYCARDIA POSSIBLE ANTERIOR MYOCARDIAL INFARCTION , OF INDETERMINATE AGE [30 ms Q WAVE IN V3/V4, OR R < 0.2 mV IN V4] ST DEPRESSION, CONSIDER SUBENDOCARDIAL INJURY [0.1+ mV ST DEPRESSION] ABNORMAL ECG UNCONFIRMED REPORT Electronically signed by : Alvarez Sow MD 08/07/2023 20:13:25
[2023-08-07 12:19] LABS: Activated Partial Thrombo Time 29.6 seconds (22.8-30.6); INR 1.22 (0.9-1.1)
--- NOTE | 2023-08-07 13:00 | PC.NURSE ---
PT BEING TAKEN DOWN FOR AC AND CARDIOVERSION VIA BED, PT'S WALKING OUT WITH PT AND GOING TO WAITING ROOM ON FIRST FLOOR
--- NOTE | 2023-08-07 13:08 | P.PNANES_ITS ---
[facility] [place] Disclaimer: The information contained in this section may have been updated after the patient was seen, as this information can be updated by other users. Medical History Anal fistula Atrial flutter Diabetes (~12/06/17) Hyperlipidemia Hypertension Vitamin D deficiency (~12/06/17) Family History Other Family history of acute congestive heart failure Family history of diabetes mellitus type II Family history of hyperlipidemia Family history of hypertension Family history of myocardial infarction Family history of stroke Social History Smoking Status: Former smoker tobacco type: cigarettes packs per day: 1 and cigars alcohol intake: current substance use type: denies use current occupational status: employed Travel in the last 8 weeks: None [facility] Anesthesia Checklist Patient Identification Patient Identification: Arm Band and Verbal (Name & ) Structural Data Admitted From: Inpatient Planned Operative Procedure/s: AC/Cardioversion Consent for Planned Operative Procedure(s) Verified: Yes NPO Status Verified Time NPO: 00:00 Chart Verification Results Verified: CBC, BMP and PT, PTT, INR Additional verifications Anesthesia Reactions: No Airway Assessment Mallampati Score:: Class II C-Spine Mobility Assessed: Yes TMJ Mobility Assessed: Yes Dentition: Good Dentition Neurological Assessment Level of Consciousness: Awake Hx Seizures: No Numbness or tingling in extremities: No Anesthesia Plan Anesthesia Risk discussed: Yes Anesthesia Plan: Verified ASA Class: III Anesthesia Type: MAC
--- NOTE | 2023-08-07 13:53 | ECG_ITS ---
APPROVED REPORT Exam: Resting ECG HR:56 bpm ECG Measurements Heart Rate 56 AXES LA 164 P 71 QRSd 109 QRS 21 QT 418 T 42 QTc 409 Conclusion SINUS BRADYCARDIA MODERATE ST DEPRESSION [0.05+ mV ST DEPRESSION] ABNORMAL ECG UNCONFIRMED REPORT Electronically signed by : Alvarez Sow MD 08/07/2023 20:13:18
--- NOTE | 2023-08-07 14:01 | PC.NURSE ---
PT GOING TO 204 FROM [facility] OP, ROOM BEING STAT CLEANED
--- NOTE | 2023-08-07 14:06 | SUR.PHASEII ---
Feroz miller discontinued per Willy Hinton RN as orderred per Dr Orr
--- NOTE | 2023-08-07 14:38 | P.PN_ITS ---
Subjective Subjective Date: 08/07/23 Time: 14:00 Principal diagnosis: Aflutter Interval history: The patient remains in atrial flutter this morning. His rate was elevated initially this morning in the 120s to 130s. His rate is down around the 80s at this time. He denies any chest pain or pressure. He denies any shortness of breath or edema. He denies any fever, chills, nausea, vomiting, diarrhea, PND orthopnea. The patient is scheduled to undergo AC and cardioversion today. Exam Data for Last 24 hours Vital signs and Labs for Last 24 Hours: Temp Pulse Resp BP Pulse Ox O2 Del Method O2 Flow Rate 97.6 F 55 L 18 120/69 96 Room Air 4 08/07/23 13:47 08/07/23 14:03 08/07/23 14:03 08/07/23 14:03 08/07/23 14:03 08/07/23 14:03 08/07/23 13:23 Laboratory Results - last 24 hr 08/06/23 17:12: POC Glucose 333 H* 08/06/23 20:58: POC Glucose 247 H 08/07/23 05:34: WBC 8.0, RBC 5.52, Hgb 17.1, Hct 50.6, MCV 91.6, MCH 30.9, MCHC 33.7, RDW 13.6, Plt Count 202, MPV 7.7, Neut % (Auto) 55.9, Lymph % (Auto) 28.6, [place] % (Auto) 9.7 H, Eos % (Auto) 5.4, Baso % (Auto) 0.5, Neut # (Auto) 4.5, Lymph # (Auto) 2.3, [place] # (Auto) 0.8, Eos # (Auto) 0.4, Baso # (Auto) 0.0, Sodium 133 L, Potassium 4.2, Chloride 100, Carbon Dioxide 27, Anion Gap 10.2, BUN 18, Creatinine 0.70, Estimated Creat Clear 108, Estimated GFR 114, Est GFR ( Amer) 138, Glucose 277 H, POC Glucose 260 H, Calcium 8.8 08/07/23 11:34: POC Glucose 281 H 08/07/23 11:55: PT 13.0 H, INR 1.22 H, APTT 29.6 I & O for Last 24 hours: Intake & Output 08/04/23 08/05/23 08/06/23 08/07/23 23:59 23:59 23:59 23:59 Intake Total 282.583 / 631.939 4349.500 / 1529.500 50.750 / 50.750 Output Total 0 / 0 2200 / 2500 750 / 750 Balance 282.583 / 282.583 -670.500 / -970.500 -699.250 / -699.250 Weight 214 lb 9 oz 220 lb 219 lb 12.814 oz Constitutional Constitutional: no acute distress and average body habitus *Routine HEENT Exam Head: Present normocephalic and atraumatic ENT: Present mucous membranes moist *Routine Neck Exam Neck: Present supple, full ROM and normal carotid upstroke; Absent JVD, carotid bruit or lymphadenopathy *Routine Respiratory Exam Respiratory: Present CTA bilaterally, normal respiratory effort, able to speak in complete sentences and symmetric chest movement *Routine Cardiovascular Exam Cardiovascular: Present Normal S1, Normal S2 and irregular rhythm; Absent murmur or gallop *Routine Abdominal Exam Abdominal: Present soft and normoactive bowel sounds; Absent tenderness, distended or organomegaly *Routine Extremities Exam Extremities: Present full ROM, pulses intact and normal capillary refill; Absent cyanosis, clubbing or edema *Routine Skin Exam Skin: Present intact and warm; Absent erythema *Routine Neurological Exam Neurological: Present alert, oriented X3 and CN II-XII intact; Absent sensory deficit or motor deficit Routine Psychiatric Exam Psychiatric: Present normal affect Progress Note: A&P Assessment and plan (1) Atrial flutter: Status: Acute (2) Diabetes: Status: Chronic (3) Hyperlipidemia: Status: Chronic (4) Hypertension: Status: Chronic Assessment and Plan Assessment and Plan for All Diagnoses:: Plan: 1. The patient was admitted to the hospital with atrial flutter with RVR. Patient remains in atrial flutter at this time with a heart rate around the 80s and 90s. He remains on the diltiazem drip. 2. Will plan to proceed with AC and cardioversion today to get the patient back in sinus rhythm. 3. The patient has been educated the risk and benefits of proceeding with AC and cardioversion. The patient verbalized understanding and is agreeable in proceeding with the procedure. 3. The patient will remain n.p.o. in preparation for AC and cardioversion. 4. The patient's echocardiogram shows a normal ejection fraction. 5. Continue metoprolol and digoxin for his atrial flutter. 6. Continue Xarelto for long-term anticoagulation. 7. He denies any chest pain or pressure at this time. He ruled out for an [place]. No plans for invasive left cardiac catheterization at this time. 8. Further recommendations were made pending the patient's response to treatment. Thank you for the opportunity to participate in the care of this patient. All recommendations and orders are per Dr. Orr. Addendum: Patient was successfully cardioverted to sinus rhythm. Will start him on diltiazem ER 120 mg p.o. daily. Decrease his metoprolol XL to 100 mg p.o. daily Stop diltiazem drip Continue Xarelto.
--- NOTE | 2023-08-07 14:50 | PC.NURSE ---
pt. to the floor after having a AC.
--- NOTE | 2023-08-07 15:23 | PC.NURSE ---
notified cardiology of pts hr 57bpm, b/p 92/57 and new order for cardizem. per alicja sampson to give.
[2023-08-07] MEDS: dilTIAZem ER 120MG CAPSULE 120 MG PO (15:25)
[2023-08-07 16:13] LABS: POC Glucose,Bedside 246 (70-110)
[2023-08-07] MEDS: RIVAROXABAN 10MG TABLET 20 MG PO (16:53)
--- NOTE | 2023-08-07 17:24 | CA_ITS ---
APPROVED REPORT EXAM: Comprehensive 2D, Doppler, and color-flow Echocardiogram Product Safety Specialist: Belle Zepeda, RCS, RVS Ht: 5 ft 8 in Wt: 220lbs BSA: 2.13 BP: 105/73 mmHg Rhythm: Atrial Fibrillation Indications: AFIB, CP, Hx-cardioversion09/2022 Echo Enhancing Agent Comments: TDS due to patient factors & Atrial fibrillation 2D Dimensions IVSd 0.00 cm LVEF (Visual) 135.90 % PWd 3.98 cm LA Volume 73.50 mL LVDd 0.87 cm LA Volume Index 34.151999 mL/m2 (M/F) 16-34 LVDs 3.76 cm RVID Base (AP4) 2.52 cm (M/F) 2.5-4.1 M-Mode Dimensions LVDd 0.87 cm (3.5-5.7) LVDs 3.76 cm (3.5-5.7) IVSd 0.00 cm (0.6-1.1) PWd 3.98 cm (0.6-1.1) EPSs 0.48 cm FS 42.40% LV Diastology E Decel Time 133 (160-240 msec) E/A Ratio 2.33 MED E' 11.0 (>= 7 cm/sec) MED A' 8.20 cm/s E'/MED E' Ratio 8.32 (<= 14) LAT E' 15.3 (>= 10 cm/sec) LAT A' 17.60 cm/s E/LAT E' Ratio 5.98 (<= 14) Aortic Valve LVOT Max 101.0 (70-110 cm/s) LVOT VTI 16.84 cm AoV Peak Rylan. 181.0 (50-130 cm/s) AO Mean GR. 6.50 (<5 mmHg) AO VTI 27.8 (18-25 cm) Mitral Valve MV E Max Rylan. 91.0 (40-130 cm/s) MV A Velocity 39.0 (40-130 cm/s) E/A Ratio 2.33 MV Decel. Time 133 (160-240 ms) Tricuspid Valve TR P. Velocity 195.00 cm/s RAP Estimate 10.00 mmHg RVSP 25.20 mmHg Left Ventricle The left ventricle is normal size. The left ventricular systolic function is normal. The left ventricular ejection fraction is within the normal range. There is normal left ventricular wall thickness. There is normal LV segmental wall motion. The left ventricular diastolic function is normal. LVEF is 55%. Right Ventricle The right ventricle is normal size. The right ventricular systolic function is normal. Atria The left atrium size is normal. The right atrium size is normal. There is no Doppler evidence of interatrial shunt. Aortic Valve The aortic valve opens well. There is no aortic valvular stenosis. No aortic regurgitation is present. Mitral Valve The mitral valve is normal in structure. No evidence of mitral valve stenosis. Trace mitral valve regurgitation. Tricuspid Valve The tricuspid valve leaflets are thin and pliable. Mild tricuspid regurgitation. RVSP is normal. Pulmonic Valve The pulmonary valve is normal in structure. Trace pulmonic regurgitation. Great Vessels The aortic root is normal in size. The ascending aorta is not well visualized. IVC is normal in size and collapses >50% with inspiration. Pericardium There is no pericardial effusion. Other Information Study Quality: Fair Conclusion Normal biventricular systolic function. Mild TR. Electronically signed by : Chelsey Orr MD 08/07/2023 19:27:48
[2023-08-07 20:48] LABS: POC Glucose,Bedside 384 (70-110)
[2023-08-07] MEDS: ATORVASTATIN 10MG TABLET 10 MG PO (20:48)
--- NOTE | 2023-08-07 21:35 | EXP.ACUTE.PN ---
Subjective *Date: 08/07/23 *Time: 21:35 Interval history: Patient feeling better. Denies any chest pain, shortness of breath, weakness or fatigue. Going for cardioversion today. Medical Exam Vital signs and Labs for Last 24 Hours: Vital Signs Temp Pulse Pulse Pulse Resp BP Pulse Ox 08/07/23 18:51 98.3 F 73 17 105/65 L 100 08/07/23 08:00 80 08/07/23 18:00 98.5 F 74 17 103/64 L 99 08/07/23 17:00 98.5 F 75 16 95/62 L 99 08/07/23 16:30 98.5 F 67 16 94/54 L 99 08/07/23 16:00 69 08/07/23 17:41 08/07/23 16:26 08/07/23 16:00 98.5 F 65 16 98/67 L 99 08/07/23 15:45 98.5 F 75 16 94/74 L 99 08/07/23 15:35 98.2 F 59 L 16 70/54 L 98 08/07/23 15:20 98.3 F 59 L 59 L 16 79/60 L 99 08/07/23 14:50 98.3 F 64 64 16 92/57 L 99 08/07/23 14:56 08/07/23 14:03 55 L 18 120/69 96 08/07/23 13:53 56 L 18 101/52 L 94 L 08/07/23 13:47 97.6 F 90 57 L 18 123/66 90 L 08/07/23 13:23 08/07/23 11:00 08/07/23 12:00 97.9 F 08/07/23 12:00 70 08/07/23 08:00 130 H 08/07/23 10:00 75 16 99/62 L 97 08/07/23 08:00 94 L 08/07/23 09:00 08/07/23 08:21 90 08/07/23 08:00 106 H 10 L 106/77 L 95 08/07/23 07:59 97.8 F 08/07/23 06:00 104 H 18 97/75 L 96 08/07/23 05:00 08/07/23 04:00 68 95 08/07/23 04:00 81 08/07/23 04:00 97.9 F 88 12 87/56 L 95 08/07/23 02:00 120 H 18 90/57 L 94 L 08/07/23 00:00 124 H 08/07/23 00:00 97.9 F 111 H 18 101/58 L 95 08/06/23 22:00 106 H 18 94/74 L 96 O2 Del Method O2 Flow Rate 08/07/23 18:51 Room Air 08/07/23 08:00 08/07/23 18:00 Room Air 08/07/23 17:00 Room Air 08/07/23 16:30 Room Air 08/07/23 16:00 08/07/23 17:41 Room Air 08/07/23 16:26 Room Air 08/07/23 16:00 Room Air 08/07/23 15:45 Room Air 08/07/23 15:35 Room Air 08/07/23 15:20 Room Air 08/07/23 14:50 Room Air 08/07/23 14:56 Room Air 08/07/23 14:03 Room Air 08/07/23 13:53 Room Air 08/07/23 13:47 Room Air 08/07/23 13:23 Nasal Cannula 4 08/07/23 11:00 Room Air 08/07/23 12:00 08/07/23 12:00 08/07/23 08:00 08/07/23 10:00 Room Air 08/07/23 08:00 Room Air 08/07/23 09:00 Room Air 08/07/23 08:21 08/07/23 08:00 Room Air 08/07/23 07:59 08/07/23 06:00 Room Air 08/07/23 05:00 Room Air 08/07/23 04:00 Room Air 08/07/23 04:00 08/07/23 04:00 Room Air 08/07/23 02:00 Room Air 08/07/23 00:00 08/07/23 00:00 Room Air 08/06/23 22:00 Room Air Intake and Output 08/07/23 08/07/23 08/07/23 07:59 15:59 23:59 Intake Total 45.417 / 320.750 5.333 / 320.750 270 / 320.750 Output Total 300 / 750 450 / 750 0 / 750 Balance -254.583 / -429.250 -444.667 / -429.250 270 / -429.250 Intake: Intake, Oral Amount 0 / 270 0 / 270 270 / 270 Intake, Total IV Amount 45.417 / 50.750 5.333 / 50.750 Output: Output, Urine Amount 300 / 750 450 / 750 0 / 750 Other: Number of Unmeasured Voids 1 1 Weight 99.7 kg Patient Weight 08/07/23 23:59 Weight 99.7 kg Laboratory Results - last 24 hr 08/07/23 05:34: WBC 8.0, RBC 5.52, Hgb 17.1, Hct 50.6, MCV 91.6, MCH 30.9, MCHC 33.7, RDW 13.6, Plt Count 202, MPV 7.7, Neut % (Auto) 55.9, Lymph % (Auto) 28.6, [place] % (Auto) 9.7 H, Eos % (Auto) 5.4, Baso % (Auto) 0.5, Neut # (Auto) 4.5, Lymph # (Auto) 2.3, [place] # (Auto) 0.8, Eos # (Auto) 0.4, Baso # (Auto) 0.0, Sodium 133 L, Potassium 4.2, Chloride 100, Carbon Dioxide 27, Anion Gap 10.2, BUN 18, Creatinine 0.70, Estimated Creat Clear 108, Estimated GFR 114, Est GFR ( Amer) 138, Glucose 277 H, POC Glucose 260 H, Calcium 8.8 08/07/23 11:34: POC Glucose 281 H 08/07/23 11:55: PT 13.0 H, INR 1.22 H, APTT 29.6 08/07/23 16:06: POC Glucose 246 H 08/07/23 20:25: POC Glucose 384 H* I & O for Labs for Last 24 Hours: Intake & Output 08/04/23 08/05/23 08/06/23 08/07/23 23:59 23:59 23:59 23:59 Intake Total 282.583 / 930.435 3802.500 / 1529.500 320.750 / 320.750 Output Total 0 / 0 2200 / 2500 750 / 750 Balance 282.583 / 282.583 -670.500 / -970.500 -429.250 / -429.250 Weight 97.324 kg 99.79 kg 99.7 kg Constitutional: Present no acute distress and obese Head: Present atraumatic and normocephalic Respiratory: Present normal respiratory effort; Absent accessory muscle use, rhonchi, wheezes or crackles Comment:: Irregularly irregular GI: Present soft and normal bowel sounds; Absent distention or tenderness Extremities: Present normal inspection and full ROM; Absent edema Skin: Present intact; Absent erythema Neuro: Present Cranial Nerve 2-12 Intact, Grossly Intact, alert, awake, oriented x 3 and moves all extremities Assessment and Plan *Assessment and plan (1) Atrial tachycardia: Status: Acute Category: Medical Code(s): I47.19 - Other supraventricular tachycardia (2) Type 2 diabetes mellitus: Status: Acute Category: Medical Code(s): E11.9 - Type 2 diabetes mellitus without complications (3) Atrial fibrillation: Status: Acute Qualifiers: Atrial fibrillation type: paroxysmal Qualified Code(s): I48.0 - Paroxysmal atrial fibrillation Category: Medical Code(s): I48.91 - Unspecified atrial fibrillation (4) Atrial flutter with rapid ventricular response: Status: Acute Category: Medical Code(s): I48.92 - Unspecified atrial flutter (5) Hypertension: Status: Chronic Qualifiers: Hypertension type: unspecified Qualified Code(s): I10 - Essential (primary) hypertension Category: Medical Code(s): I10 - Essential (primary) hypertension (6) Diabetes: Status: Chronic Qualifiers: Diabetes mellitus type: other specified (including KEVIN) Diabetes mellitus fdc insulin use: unspecified fdc insulin use status Diabetes mellitus complication status: with other specified complication Qualified Code(s): E13.69 - Other specified diabetes mellitus with other specified complication Category: Medical Code(s): E11.9 - Type 2 diabetes mellitus without complications (7) Hyperlipidemia: Status: Chronic Qualifiers: Hyperlipidemia type: unspecified Qualified Code(s): E78.5 - Hyperlipidemia, unspecified Category: Medical Code(s): E78.5 - Hyperlipidemia, unspecified Plan patient is a 62-year-old male with past medical history of diabetes mellitus atrial fibrillation hypertension hyperlipidemia who presented to hospital due to shortness of breath. According to the patient he has been having shortness of breath since yesterday night, he felt palpitations. He also has chest pain with exertion. He denied fever chills diarrhea constipation dysuria nausea vomiting. On further evaluation patient was found to have leukocytosis of 12.3 hyperglycemia, elevated BNP. A-fib with RVR showing improvement with diltiazem drip. Taken for AC and cardioversion today. Continue to monitor overnight. Problems addressed as follows: Atrial fibrillation Hypertension hyperlipidemia - Patient taken for cardioversion today AC. Converted to sinus rhythm. Transition to diltiazem extended release 120 mg daily. Discontinue diltiazem drip. Discussed case with cardiology, recommend continuing home dose of digoxin and metoprolol. Continue Xarelto for long-term anticoagulation. If remains in sinus rhythm tomorrow, anticipate discharge home tomorrow. - Continue aspirin 81 mg daily, Lipitor 10 mg nightly, Lasix 40 mg IV twice daily. Lisinopril 20 mg twice daily Leukocytosis normalized. CBC, CMP, magnesium ordered for the morning. DM: Sliding scale insulin with fingersticks ACHS. Full code Diabetic diet Xarelto
[2023-08-07 22:43] LABS: POC Glucose,Bedside 326 (70-110)
[2023-08-08] VITALS: BP 94/49; PULSE 68; PULSE 80; RESP 16; TEMP 36.6; O2SAT 98
[2023-08-08 04:00] VITALS: BP 123/62; PULSE 60; PULSE 62; RESP 18; TEMP 36.8; O2SAT 94; BMI 32.5
[2023-08-08] MEDS: humaLOG 100 UNITS/ML 3ML VIAL (SSI) SQ ×2 (06:42→10:04)
--- NOTE | 2023-08-08 07:42 | EXP.DC.SUM ---
General Admission date:: 08/05/23 Discharge date: 08/08/23 HPI HPI HPI: patient is a 62-year-old male with past medical history of diabetes mellitus atrial fibrillation hypertension hyperlipidemia who presented to hospital due to shortness of breath. According to the patient he has been having shortness of breath since yesterday night, he felt palpitations. He also has chest pain with exertion. He denied fever chills diarrhea constipation dysuria nausea vomiting. On further evaluation patient was found to have leukocytosis of 12.3 hyperglycemia, elevated BNP Hospital Course Hospital Course Hospital Course: Mr. Edmond is a 62-year-old male with past medical history of diabetes mellitus atrial fibrillation hypertension hyperlipidemia who presented to hospital due to shortness of breath. According to the patient he has been having shortness of breath since yesterday night, he felt palpitations. He also has chest pain with exertion. He denied fever chills diarrhea constipation dysuria nausea vomiting. On further evaluation patient was found to have leukocytosis of 12.3 hyperglycemia, elevated BNP. A-fib with RVR. Admitted for further management. Showing improvement with diltiazem drip. Taken for AC and cardioversion 08/06. Has been in normal sinus rhythm since. Monitored overnight, remained stable on oral antiarrhythmics. Stable to discharge home with close follow-up with cardiology. Problems addressed as follows: Atrial fibrillation Hypertension hyperlipidemia -Admitted with A-fib with RVR, initiated on diltiazem drip. Improved rate control but still in A-fib. Taken for AC and cardioversion on 08/06. Converted to sinus rhythm. Maintaining sinus rhythm for the duration of hospitalization. Continue oral diltiazem extended release 120 mg daily. Discontinue digoxin. Additionally continue metoprolol. Will continue Xarelto for long-term anticoagulation. Cardiology consulted and assisted with management. Will plan for close follow-up in the outpatient setting.. - Continue aspirin 81 mg daily, Lipitor 10 mg nightly, Lasix 20mg daily. Lisinopril 20 mg twice daily Leukocytosis normalized. No signs of infection. DM: Sliding scale insulin with fingersticks ACHS. Resume home regimen at discharge. A1c of 9.2. Needs further adjustment in the outpatient setting. Exam Data for Last 24 hours Vital signs and Labs for Last 24 Hours: Temp Pulse Resp BP Pulse Ox O2 Del Method O2 Flow Rate 98.2 F 62 18 123/62 94 L Room Air 4 08/08/23 04:00 08/08/23 04:00 08/08/23 04:00 08/08/23 04:00 08/08/23 04:00 08/08/23 07:00 08/07/23 13:23 Laboratory Results - last 24 hr 08/07/23 11:34: POC Glucose 281 H 08/07/23 11:55: PT 13.0 H, INR 1.22 H, APTT 29.6 08/07/23 16:06: POC Glucose 246 H 08/07/23 20:25: POC Glucose 384 H* 08/07/23 21:44: POC Glucose 326 H* I & O for Last 24 hours: Intake & Output 08/05/23 08/06/23 08/07/23 08/08/23 23:59 23:59 23:59 23:59 Intake Total 282.583 / 043.948 5269.500 / 1529.500 320.750 / 320.750 Output Total 0 / 0 2200 / 2500 750 / 750 0 / 0 Balance 282.583 / 282.583 -670.500 / -970.500 -429.250 / -429.250 0 / 0 Weight 97.324 kg 99.79 kg 99.7 kg 99.7 kg Constitutional Constitutional: no acute distress and obese *Routine HEENT Exam Head: Present normocephalic and atraumatic Eye: Present EOMI and PERRL ENT: Present mucous membranes moist *Routine Neck Exam Neck: Present supple *Routine Respiratory Exam Respiratory: Present CTA bilaterally and symmetric chest movement *Routine Cardiovascular Exam Cardiovascular: Present RRR, Normal S1 and Normal S2 *Routine Abdominal Exam Abdominal: Present soft and normoactive bowel sounds; Absent tenderness *Routine Rectal Exam Patient deferred: visual exam *Routine Exam Patient deferred: penile exam *Routine Extremities Exam Extremities: Present full ROM and normal capillary refill; Absent edema *Routine Skin Exam Skin: Present intact, dry and warm *Routine Neurological Exam Neurological: Present alert, oriented X3, CN II-XII intact and moving all extremities; Absent altered mental status Detailed Neck Exam: Thyroids Thyroid: Absent bruit Results Data Completed and Pending Labs on day of discharge: Labs from last 24 hours 08/07/23 08/07/23 08/07/23 21:44 20:25 16:06 PT INR APTT POC Glucose 326 H* 384 H* 246 H 08/07/23 08/07/23 11:55 11:34 PT 13.0 H INR 1.22 H APTT 29.6 POC Glucose 281 H DS: Diagnosis Discharge Diagnosis (1) Atrial tachycardia: Status: Acute Code(s): I47.19 - Other supraventricular tachycardia (2) Type 2 diabetes mellitus: Status: Acute Code(s): E11.9 - Type 2 diabetes mellitus without complications (3) Atrial fibrillation: Status: Acute Code(s): I48.91 - Unspecified atrial fibrillation Qualifiers: Atrial fibrillation type: paroxysmal Qualified Code(s): I48.0 - Paroxysmal atrial fibrillation (4) Atrial flutter with rapid ventricular response: Status: Acute Code(s): I48.92 - Unspecified atrial flutter (5) Hypertension: Status: Chronic Code(s): I10 - Essential (primary) hypertension Qualifiers: Hypertension type: unspecified Qualified Code(s): I10 - Essential (primary) hypertension (6) Diabetes: Status: Chronic Code(s): E11.9 - Type 2 diabetes mellitus without complications Qualifiers: Diabetes mellitus complication status: with other specified complication Diabetes mellitus fdc insulin use: unspecified fdc insulin use status Diabetes mellitus type: other specified (including KEVIN) Qualified Code(s): E13.69 - Other specified diabetes mellitus with other specified complication (7) Hyperlipidemia: Status: Chronic Code(s): E78.5 - Hyperlipidemia, unspecified Qualifiers: Hyperlipidemia type: unspecified Qualified Code(s): E78.5 - Hyperlipidemia, unspecified Meds Home Medications and Allergies Home Medications Medication Instructions Recorded Confirmed Type aspirin 81 mg tablet,delayed 81 mg PO DAILY 09/16/22 08/05/23 History release blood sugar diagnostic (Blood 09/16/22 08/05/23 History Glucose Test strips) blood-glucose meter (Blood Glucose 09/16/22 08/05/23 History Monitoring kit) lancets 30 gauge and blood glucose 09/16/22 08/05/23 History strips combo pack lisinopril 20 mg tablet 20 mg PO BID #180 tabs 07/04/23 08/05/23 Rx atorvastatin 10 mg tablet 10 mg PO DAILY 08/06/23 08/06/23 History dapagliflozin propanediol 10 mg 10 mg PO DAILY 08/06/23 08/06/23 History tablet (Farxiga) metformin 1,000 mg tablet 1,000 mg PO BIDWMEAL 08/06/23 08/06/23 History rivaroxaban 20 mg tablet (Xarelto) 20 mg PO QPMWITHMEAL Blood 08/06/23 08/06/23 History thinner/afib semaglutide 0.25 mg or 0.5 mg (2 0.25 mg SQ WEEKLY Diabetes 08/06/23 08/05/23 History mg/3 mL) subcutaneous pen injector (Ozempic) diltiazem HCl 120 mg 120 mg PO DAILY 30 days #30 caps 08/08/23 Rx capsule,extended release 24 hr furosemide 20 mg tablet 20 mg PO DAILY 30 days #30 tabs 08/08/23 Rx metoprolol succinate 100 mg 100 mg PO DAILY 30 days #180 tabs 08/08/23 08/05/23 Rx tablet,extended release 24 hr New Prescriptions to Start Prescriptions: diltiazem HCl Darryl Titus furosemide Darryl Titus Allergies Allergy/AdvReac Type Severity Reaction Status Date / Time No Known Allergies Allergy Verified 08/05/23 13:58 Discharge Plan Disposition Patient Disposition: Home, Self-Care Condition: Fair Discharge Order Discharge Orders: Discharge Order (Routine); Ordered 08/08/23 Ordered By: Darryl Titus Follow up Plan Follow up with: Chet Sandhu DO [Primary Care Provider] - 08/15/23 10:30 am Chet Abdul MD [Staff Physician] - 08/16/23 1:45 pm Prescriptions/Medication Reconciliation: New diltiazem HCl 120 mg Capsule,Extended Release 24hr 120 mg PO DAILY 30 Days Qty: 30 0RF furosemide 20 mg Tablet 20 mg PO DAILY 30 Days Qty: 30 0RF Continued lisinopril 20 mg tablet 20 mg PO BID Qty: 180 3RF (DME) Blood Glucose Test Strip See Rx Instructions MISCELLANEOUS Rx Instructions: bid aspirin 81 mg tablet,delayed release (DR/EC) 81 mg PO DAILY (DME) blood-glucose meter [Blood Glucose Monitoring] Kit See Rx Instructions MISCELLANEOUS Rx Instructions: bid (DME) lancets-blood glucose strips 30 gauge combo pack See Rx Instructions MISCELLANEOUS Rx Instructions: As directed atorvastatin 10 mg tablet 10 mg PO DAILY Patient Comments: TAKE ONE TABLET BY MOUTH EVERY DAY Xarelto 20 mg tablet 20 mg PO QPMWITHMEAL Patient Comments: TAKE ONE TABLET BY MOUTH EVERY DAY IN THE EVENING --TAKE WITH FOOD-- dapagliflozin propanediol [Farxiga] 10 mg tablet 10 mg PO DAILY Patient Comments: TAKE ONE TABLET BY MOUTH EVERY DAY FOR diabetes metformin 1,000 mg tablet 1,000 mg PO BIDWMEAL Ozempic 0.25 mg or 0.5 mg (2 mg/3 mL) pen injector 0.25 mg SQ WEEKLY Changed metoprolol succinate 100 mg tablet extended release 24 hr 100 mg PO DAILY 30 Days Qty: 180 1RF Discontinued digoxin [Digox] 125 mcg (0.125 mg) tablet 125 mcg PO DAILY 30 Days Qty: 30 11RF Problem Reconciliation Problems Reviewed?: Yes Patient Discharge Instructions ACTIVITY: Continue current activity DIET: continue same diet Patient Instructions: DI for Heart Failure Providers Primary Care Provider: Chet Sandhu Provider: Mumtaz Pope Attending Provider: Mumtaz Pope
[2023-08-08 07:48] LABS: Basophils # 0.1 K/mm3 (0-0.2); Basophils % 0.7 % (0.1-2.0); Eosinophils # 0.4 K/mm3 (0.0-0.4); Eosinophils % 4.6 % (0.1-12.0); Hematocrit 46.7 % (42.0-52.0); Hemoglobin 15.5 g/dL (14.1-18.0); Lymphocytes # 2.2 K/mm3 (0.7-4.5); Lymphocytes % 29.1 % (10-50); Mean Corpuscular HGB Conc 33.1 g/dL (31.8-35.4); Mean Corpuscular Hemoglobin 30.5 pg (27.0-31.2); Monocytes # 0.7 K/mm3 (0.1-1.0); Monocytes % 8.7 % (1.7-9.3); Neutrophils # 4.3 K/mm3 (1.8-7.8); Neutrophils % 56.9 % (37.0-80.0); Platelet Count 211 K/mm3 (142-424); Red Blood Count 5.07 M/mm3 (4.60-6.20); Red Cell Distribution Width 13.5 % (11.5-17.5); White Blood Count 7.5 K/mm3 (4.8-10.8)
[2023-08-08 07:50] LABS: Anion Gap 10.4 mEq/L (5-15); Blood Urea Nitrogen 24 mg/dl (9-20); Calcium 8.7 mg/dl (8.4-10.2); Carbon Dioxide 30 mmol/L (22.0-30.0); Chloride 98 mmol/L (98-107); Creatinine Clearance Estimated 98 mL/min (50-200); Estimated Glomerular Filt Rate 68 ml/min (>60); GFR (African American) 82 ML/MIN (>60); Glucose 240 mg/dl (74-100); Potassium 4.4 mmoL/L (3.5-5.1); Sodium 134 mmol/L (136-145)
[2023-08-08 08:00] VITALS: BP 110/65; PULSE 74; PULSE 80; RESP 22; TEMP 36.4; O2SAT 94
[2023-08-08] MEDS: FUROSEMIDE 40MG/4ML VIAL 40 MG IV (08:41)
[2023-08-08] MEDS: dilTIAZem ER 120MG CAPSULE 120 MG PO (08:41)
[2023-08-08] MEDS: METOPROLOL SUCCINATE XL 100MG TABLET 100 MG PO (08:41)
[2023-08-08] MEDS: ASPIRIN EC 81MG TABLET 81 MG PO (08:42)
[2023-08-08 08:55] LABS: Chol/HDL Ratio 4.8 (1-3.5); Cholesterol 138 mg/dl (140-200); HDL Cholesterol 29 mg/dl (40-60); Triglycerides 113 mg/dl (30-150); VLDL Cholesterol 23 mg/dL (0-40)
[2023-08-08 09:06] LABS: Direct LDL Cholesterol 84.45 mg/dL (100-129)
[2023-08-08 09:59] LABS: POC Glucose,Bedside 274 (70-110)
--- NOTE | 2023-08-08 10:24 | P.PN_ITS ---
Subjective Subjective Date: 08/08/23 Time: 08:30 Principal diagnosis: Aflutter Interval history: The patient was admitted to the hospital with atrial flutter. He did undergo successful AC and cardioversion yesterday and remains in sinus rhythm at this time. This morning he denies any chest pain or pressure. He denies any shortness of breath or edema. He denies any fever, chills, nausea, vomiting, diarrhea, PND or orthopnea. Patient states he is ready to be discharged home today. Exam Data for Last 24 hours Vital signs and Labs for Last 24 Hours: Temp Pulse Resp BP Pulse Ox O2 Del Method O2 Flow Rate 97.6 F 74 22 110/65 94 L Room Air 4 08/08/23 08:00 08/08/23 08:00 08/08/23 08:00 08/08/23 08:00 08/08/23 08:00 08/08/23 08:35 08/07/23 13:23 Laboratory Results - last 24 hr 08/07/23 11:34: POC Glucose 281 H 08/07/23 11:55: PT 13.0 H, INR 1.22 H, APTT 29.6 08/07/23 16:06: POC Glucose 246 H 08/07/23 20:25: POC Glucose 384 H* 08/07/23 21:44: POC Glucose 326 H* 08/08/23 06:12: WBC 7.5, RBC 5.07, Hgb 15.5, Hct 46.7, MCV 92.0, MCH 30.5, MCHC 33.1, RDW 13.5, Plt Count 211, MPV 8.0, Neut % (Auto) 56.9, Lymph % (Auto) 29.1, [place] % (Auto) 8.7, Eos % (Auto) 4.6, Baso % (Auto) 0.7, Neut # (Auto) 4.3, Lymph # (Auto) 2.2, [place] # (Auto) 0.7, Eos # (Auto) 0.4, Baso # (Auto) 0.1, Sodium 134 L, Potassium 4.4, Chloride 98, Carbon Dioxide 30, Anion Gap 10.4, BUN 24 H D, Creatinine 1.10 D, Estimated Creat Clear 98, Estimated GFR 68, Est GFR ( Amer) 82 D, Glucose 240 H, Calcium 8.7, Magnesium 2.0 D, Triglycerides 113, Cholesterol 138 L, LDL Cholesterol Direct 84.45 L, VLDL Cholesterol 23, HDL Cho lesterol 29 L, Cholesterol/HDL Ratio 4.8 H 08/08/23 09:52: POC Glucose 274 H I & O for Last 24 hours: Intake & Output 08/05/23 08/06/23 08/07/23 08/08/23 23:59 23:59 23:59 23:59 Intake Total 282.583 / 040.525 1052.500 / 1529.500 320.750 / 320.750 420 / 420 Output Total 0 / 0 2200 / 2500 750 / 750 0 / 0 Balance 282.583 / 282.583 -670.500 / -970.500 -429.250 / -429.250 420 / 420 Weight 214 lb 9 oz 220 lb 219 lb 12.814 oz 219 lb 12.814 oz Constitutional Constitutional: no acute distress and average body habitus *Routine HEENT Exam Head: Present normocephalic and atraumatic ENT: Present mucous membranes moist *Routine Neck Exam Neck: Present supple, full ROM and normal carotid upstroke; Absent JVD, carotid bruit or lymphadenopathy *Routine Respiratory Exam Respiratory: Present CTA bilaterally, normal respiratory effort, able to speak in complete sentences and symmetric chest movement *Routine Cardiovascular Exam Cardiovascular: Present RRR, Normal S1 and Normal S2; Absent murmur or gallop *Routine Abdominal Exam Abdominal: Present soft and normoactive bowel sounds; Absent tenderness, distended or organomegaly *Routine Extremities Exam Extremities: Present full ROM, pulses intact and normal capillary refill; Absent cyanosis, clubbing or edema *Routine Skin Exam Skin: Present intact and warm; Absent erythema *Routine Neurological Exam Neurological: Present alert, oriented X3 and CN II-XII intact; Absent sensory deficit or motor deficit Routine Psychiatric Exam Psychiatric: Present normal affect Progress Note: A&P Assessment and plan (1) Atrial flutter with rapid ventricular response: Status: Acute (2) Type 2 diabetes mellitus: Status: Acute (3) Hypertension: Status: Chronic (4) Hyperlipidemia: Status: Chronic Assessment and Plan Assessment and Plan for All Diagnoses:: Plan: 1. The patient was admitted to the hospital with atrial flutter with RVR. The patient underwent successful AC and cardioversion yesterday. He currently remains in sinus rhythm. 2. Continue metoprolol and oral diltiazem for suppression of atrial fibrillation/flutter. 3. Continue Xarelto for long-term anticoagulation. 4. His blood pressure is well-controlled. 5. His LDL goal is less than 100. His LDL is 84. He is on a statin. 6. The patient is stable for discharge home today. The patient will need to follow-up in cardiology clinic in 1 week on an outpatient basis. He can be discharged on the following cardiac medications: Aspirin 81 mg daily, Lipitor 10 mg p.o. nightly, diltiazem ER 120 mg p.o. daily, Lasix 20 mg p.o. daily, lisinopril 20 mg p.o. twice daily, Toprol XL 100 mg daily, Xarelto 20 mg daily. Thank you for the opportunity to participate in the care of this patient. All recommendations and orders are per Dr. Orr.
[2023-08-08 12:00] VITALS: BP 116/73; PULSE 63; RESP 24; TEMP 36.9; O2SAT 97
--- NOTE | 2023-08-09 14:47 | CARE MANAGER ---
Contacted patient related to hospital discharge. Patient states he is doing better. He is aware of follow up appointments and medication changes. He denies any questions or concerns, but we did discuss his blood pressure. He was unsure about taking all the medications because his blood pressure was low while in the hospital. THe patient states his blood pressure this morning was good so he took everything he was supposed to. Recommended keeping track and taking with him to cardiology appointment as well as reaching out to cardiology if blood pressure was low or he became symptomatic. Patient verbalized understanding. TEREZA Barrientos
== END 2023-08-08 12:47 | disposition home or self-care (01) | DRG 310 ==
LOC: ER 11:17 → 2ND 13:33 → ICU 08-06 00:43 → 2ND 08-06 09:49
PROVIDERS: Anesthesiology; Internal Medicine; Internal Medicine Adolescent Medicine; Nurse Practitioner Family; Admitting Provider Internal Medicine; Emergency Provider Emergency Medicine; PCP Internal Medicine; Visit Provider Internal Medicine
PROC: (CPT 93312; principal; 2023-08-07 13:00)
DX: I47.19 Other supraventricular tachycardia (principal); I48.0 Paroxysmal atrial fibrillation; E11.65 Type 2 diabetes mellitus with hyperglycemia; I10 Essential (primary) hypertension; E78.5 Hyperlipidemia, unspecified; I48.92 Unspecified atrial flutter; E66.9 Obesity, unspecified; Z79.82 Long term (current) use of aspirin; Z79.01 Long term (current) use of anticoagulants; Z79.85 Long-term (current) use of injectable non-insulin antidiabetic drugs; Z79.84 Long term (current) use of oral hypoglycemic drugs; Z82.3 Family history of stroke; Z83.3 Family history of diabetes mellitus; Z82.49 Family history of ischemic heart disease and other diseases of the circulatory system; Z83.438 Family history of other disorder of lipoprotein metabolism and other lipidemia; Z79.02 Long term (current) use of antithrombotics/antiplatelets; Z68.32 Body mass index [BMI] 32.0-32.9, adult; Z87.891 Personal history of nicotine dependence
CPT/HCPCS: 36415; 71045; 80048; 80053; 80061; 80162; 82962; 83735; 83880; 84132; 84436; 84443; 84484; 85025; 85378; 85610; 85730; 92960; 93005; 93270; 93306; 93312; 93319; 99285; J0282; J3475

== ENCOUNTER 2023-08-15 17:16 | Outpatient (CLI) | payer BC, SELFPAY ==
[2023-08-15 21:00] LABS: Creatinine,Urine Random 34 mg/dL (Not Estab.); Microalbumin < 6.000 mg/L (0-16.7)
== END 2023-08-15 23:59 ==
LOC: LAB.DROPOF 17:16
PROVIDERS: PCP Internal Medicine; Visit Provider Internal Medicine
DX: E11.9 Type 2 diabetes mellitus without complications (principal); Z79.84 Long term (current) use of oral hypoglycemic drugs; Z79.85 Long-term (current) use of injectable non-insulin antidiabetic drugs
CPT/HCPCS: 82043; 82570

== ENCOUNTER 2023-08-27 04:36 | Observation (INO) | payer BC, SELFPAY ==
[2023-08-27] VITALS (29 sets, daily range): BP systolic 72–145; BP diastolic 26–99; PULSE 111–141; RESP 12–20; TEMP 36.5–36.9; O2SAT 94–99; BMI 31.0
--- NOTE | 2023-08-27 04:46 | ECG_ITS ---
APPROVED REPORT Exam: Resting ECG HR:135 bpm ECG Measurements Heart Rate 135 AXES QRSd 87 QRS 39 QT 272 T 36 QTc 351 Conclusion Supraventricular tachyarrhythmia, likely atrial flutter with RVR 2-1 conduction Electronically signed by : RITCHIE TIJERINA, 08/28/2023 15:40:54
--- NOTE | 2023-08-27 04:59 | XR_ITS ---
PROCEDURE INFORMATION: Exam: XR Chest Exam date and time: 08/27/2023 5:09 AM Age: 62 years old Clinical indication: Pain; Chest pressure; Additional info: Chest discomfort TECHNIQUE: Imaging protocol: Radiologic exam of the chest. Views: 1 view. COMPARISON: CR XR CHEST PORTABLE 08/05/2023 10:59 AM FINDINGS: Lungs: Unremarkable. No consolidation. Pleural spaces: Unremarkable. No pleural effusion. No pneumothorax. Heart/Mediastinum: Unremarkable. No cardiomegaly. Bones/joints: Unremarkable. IMPRESSION: No acute findings.
--- NOTE | 2023-08-27 05:01 | ED_ITS ---
Discharge Plan Disposition Patient Disposition: Admitted Chief Complaint: Arrhythmia/Palpitations Clinical Impressions Clinical Impression: Atrial flutter Discharge ED Provider: Linda Casarez General Chief Complaint: Arrhythmia/Palpitations Stated Complaint: heart rate 116 Time Seen by Provider: 08/27/23 04:47 History of Present Illness HPI narrative: 62-year-old male with diabetes and recent diagnosis of atrial tachycardia/atrial flutter presents to the ER with concerns of vague chest discomfort and high heart rate. Patient states he was recently admitted for similar symptoms. He underwent cardioversion while admitted. He was discharged on Xarelto. He follows up with cardiology. My review of most recent cardiology note demonstrates normal biventricular systolic function, recommendations to continue anticoagulation with Xarelto. Patient states he has been compliant with his medications though he has stopped taking the fluid pill after discussing this with Jocelyne Robertson from cardiology who recommended he take it every other day. Patient states he was urinating too often so he stopped taking it. Patient is concerned that his Sitagliptin/metformin combination medication is potentially contributing to his arrhythmias. He states he started taking it 4 to 5 days before his last episode of arrhythmia. He states he was off it for a few weeks since discharge and recently started taking it again in the last 5 days. He states his symptoms were noted this morning when he woke up to take his medications. His heart rate was in the 130s. He usually runs in the 60s. No other symptoms of being ill in the last few days. Related Data Home Medications Medication Instructions Recorded Confirmed aspirin 81 mg tablet,delayed 81 mg PO DAILY 09/16/22 08/16/23 release blood sugar diagnostic (Blood 09/16/22 08/16/23 Glucose Test strips) blood-glucose meter (Blood Glucose 09/16/22 08/16/23 Monitoring kit) lancets 30 gauge and blood glucose 09/16/22 08/16/23 strips combo pack atorvastatin 10 mg tablet 10 mg PO DAILY 08/06/23 08/16/23 dapagliflozin propanediol 10 mg 10 mg PO DAILY 08/06/23 08/16/23 tablet (Farxiga) metformin 1,000 mg tablet 1,000 mg PO BIDWMEAL 08/06/23 08/16/23 semaglutide 0.25 mg or 0.5 mg (2 0.25 mg SQ WEEKLY Diabetes 08/06/23 08/16/23 mg/3 mL) subcutaneous pen injector ([employer]) Previous Rx's Medication Instructions Recorded lisinopril 20 mg tablet 20 mg PO BID #180 tabs 07/04/23 diltiazem HCl 120 mg 120 mg PO DAILY 30 days #30 caps 08/08/23 capsule,extended release 24 hr furosemide 20 mg tablet 20 mg PO DAILY 30 days #30 tabs 08/08/23 metoprolol succinate 100 mg 100 mg PO DAILY 30 days #180 tabs 08/08/23 tablet,extended release 24 hr rivaroxaban 20 mg tablet (Xarelto) 20 mg PO QPMWITHMEAL Blood 08/15/23 thinner/afib #90 tabs Allergies Allergy/AdvReac Type Severity Reaction Status Date / Time No Known Allergies Allergy Verified 08/16/23 13:47 [facility] Disclaimer: The information contained in this section may have been updated after the patient was seen, as this information can be updated by other users. Medical History Atrial flutter Anal fistula Hyperlipidemia Hypertension Vitamin D deficiency (~12/06/17) Diabetes (~12/06/17) Family History Other Family history of acute congestive heart failure Family history of diabetes mellitus type II Family history of hyperlipidemia Family history of hypertension Family history of myocardial infarction Family history of stroke Social History Smoking Status: Former smoker tobacco type: cigarettes packs per day: 1 and cigars years smoked: 25 alcohol intake: current substance use type: denies use current occupational status: employed Travel in the last 8 weeks: None ROS Obtained: Yes All systems reviewed & no additional complaints except as documented Constitutional Constitutional: Denies chills, Denies fever(s), Denies headache(s) and Denies weakness Eyes Eyes: Denies change in vision ENT Ears, Nose, Mouth, and Throat: Denies dizziness, Denies headache(s), Denies nasal congestion and Denies sore throat Cardiovascular Cardiovascular: Reports chest pain (Vague chest discomfort), Denies dyspnea, Denies leg edema and Reports palpitations Respiratory Respiratory: Denies cough and Denies dyspnea Gastrointestinal Gastrointestingal: Denies constipation, diarrhea, nausea or vomiting Genitourinary Male Genitourinary: Denies difficulty urinating Musculoskeletal Musculoskeletal: Denies arthralgias, Denies myalgias, Denies numbness and Denies tingling Integumentary/Breasts Skin/Breast: Denies change in pigmentation Neurologic Neurologic: Denies dizziness, Denies headache(s), Denies numbness, Denies tingling and Denies weakness Endocrine Endocrine: Reports palpitations Physical Exam General General appearance: alert and in no apparent distress Head Head exam: atraumatic and normocephalic Eye Eye exam: Present PERRL and EOMI ENT ENT exam: Present mucous membranes moist Neck Neck exam: Present normal inspection and full ROM Chest Chest inspection: Present symmetric chest wall rise Respiratory Respiratory exam: Present normal lung sounds bilaterally; Absent respiratory distress, wheezes or stridor Cardiovascular Cardiovascular exam: Present normal rhythm and tachycardia Abdominal Exam Abdominal exam: Present soft; Absent distention or tenderness Extremities Exam Extremities exam: Present full ROM Neurological Exam Neurological exam: Present alert and oriented X3; Absent motor sensory deficit Psychiatric Psychiatric exam: Present normal affect and normal mood Skin Skin exam: Present warm and dry HEART Score HEART Score HEART Score assessment performed?: Yes History (anamnesis): Slightly suspicious ECG: Non-specific disturbance Age: 45-65 years Risk factors: 1-2 risk factors Troponin: </= normal limit HEART Score: 3 Critical Care Critical Care Time Critical Care Time: No Medical Decision Making Kenneth Inquiry Pt receiving controlled substance: No Vital Signs Vital Signs: 08/27/23 04:48 08/27/23 04:52 08/27/23 05:01 Temperature 98.3 F Temperature Source Oral Pulse Rate 134 H 136 H Pulse Rate [Left Radial] 135 H Respiratory Rate 16 20 15 Blood Pressure 138/96 H 115/85 Blood Pressure [Right Arm] 138/96 H Blood Pressure Mean 122 95 Blood Pressure Mean [Right Arm] 110 Blood Pressure Source [Right Arm] Automatic Cuff Blood Pressure Position [Right Arm] Sitting 02 Sat by Pulse Oximetry 98 97 98 Oxygen Delivery Method Room Air Room Air Room Air 08/27/23 05:21 08/27/23 05:24 08/27/23 05:28 Temperature Temperature Source Pulse Rate 135 H 132 H 135 H Pulse Rate [Left Radial] Respiratory Rate 12 14 Blood Pressure 129/88 137/93 H 112/79 Blood Pressure [Right Arm] Blood Pressure Mean 93 97 90 Blood Pressure Mean [Right Arm] Blood Pressure Source [Right Arm] Blood Pressure Position [Right Arm] 02 Sat by Pulse Oximetry 95 97 97 Oxygen Delivery Method Room Air Room Air 08/27/23 05:34 08/27/23 06:12 08/27/23 06:14 Temperature Temperature Source Pulse Rate 135 H 141 H 134 H Pulse Rate [Left Radial] Respiratory Rate 16 18 Blood Pressure 145/99 H 107/81 L 113/79 Blood Pressure [Right Arm] Blood Pressure Mean 110 89 83 Blood Pressure Mean [Right Arm] Blood Pressure Source [Right Arm] Blood Pressure Position [Right Arm] 02 Sat by Pulse Oximetry 96 96 96 Oxygen Delivery Method Room Air Room Air Room Air 08/27/23 06:21 Temperature Temperature Source Pulse Rate 135 H Pulse Rate [Left Radial] Respiratory Rate 14 Blood Pressure 101/67 L Blood Pressure [Right Arm] Blood Pressure Mean 76 Blood Pressure Mean [Right Arm] Blood Pressure Source [Right Arm] Blood Pressure Position [Right Arm] 02 Sat by Pulse Oximetry 96 Oxygen Delivery Method Room Air Lab Data Labs: Lab Results 08/27/23 04:55: WBC 9.0, RBC 5.65, Hgb 17.3, Hct 52.6 H, MCV 93.1, MCH 30.7, MCHC 33.0, RDW 13.7, Plt Count 205, MPV 7.8, Neut % (Auto) 56.7, Lymph % (Auto) 29.6, [place] % (Auto) 8.1, Eos % (Auto) 4.1, Baso % (Auto) 1.5, Neut # (Auto) 5.1, Lymph # (Auto) 2.7, [place] # (Auto) 0.7, Eos # (Auto) 0.4, Baso # (Auto) 0.1, PT 13.9 H, INR 1.31 H, APTT 33.8 H, Sodium 137, Potassium 4.3, Chloride 101, Carbon Dioxide 29, Anion Gap 11.3, BUN 19, Creatinine 1.10, Estimated Creat Clear 94, Estimated GFR 68, Est GFR ( Amer) 82, Glucose 176 H, Calcium 10.1, Total Bilirubin 0.5, AST 49, ALT 97 H, Alkaline Phosphatase 55, Troponin I < 0.01, Total Protein 7.9, Albumin 5.0, Globulin 2.9, Albumin/Globulin Ratio 1.7, Free T4 1.49 08/27/23 04:55 08/27/23 04:55 Response Orders (Tests/Meds): ED MEDICATIONS Generic Name Dose Route Start Last Admin Trade Name Freq PRN Reason Stop Dose Admin Acetaminophen 650 mg 08/27/23 06:24 Acetaminophen 325mg Tab PO 09/26/23 06:23 Q4HP PRN Fever or Mild Pain (1-3) Al Hydrox/Mg Hydrox/Simethicone 30 ml 08/27/23 06:24 Aluminum/Magnesium/Simethicone 30ml Udc PO 09/26/23 06:23 QIDP PRN Dyspepsia Diltiazem HCl 100 mg/ Sodium 100 mls @ 10 mls/hr 08/27/23 05:43 08/27/23 06:27 Chloride IV 09/26/23 05:42 15 mg/hr .Q10H CECIL 15 mls/hr Titration Protocol 10 MG/HR Sodium Chloride 1,000 mls @ 50 mls/hr 08/27/23 06:30 Sod Chlor 0.9% 1000ml Bag IV 09/26/23 06:29 .Q20H CECIL Morphine Sulfate 2 mg 08/27/23 06:24 Morphine 2mg/Ml Syringe IV 09/26/23 06:23 Q2HP PRN Severe Pain (7-10) Nicotine 21 mg 08/27/23 06:24 Nicotine 21mg/24hr Patch TD 09/26/23 06:23 DAILYP PRN Nicotine Cravings Pantoprazole Sodium 40 mg 08/27/23 09:00 Pantoprazole 40mg Tablet PO 09/26/23 08:59 DAILY CECIL Promethazine HCl 25 mg 08/27/23 06:24 Promethazine Hcl 25mg/Ml 1ml Vial IV 09/26/23 06:23 Q6HP PRN Nausea And Vomiting Sodium Chloride 25 ml 08/27/23 06:24 Sodium Chloride 0.9% 25ml Bag IV 08/27/23 06:25 ONCE ONE Discontinued Medications Generic Name Dose Route Start Last Admin Trade Name Freq PRN Reason Stop Dose Admin Lactated Ringer's 1,000 mls @ 999 mls/hr 08/27/23 05:08 08/27/23 05:16 Lactated Ringer's 1000 Ml Bag IV 08/27/23 06:08 999 mls/hr .Q1H1M ONE Administration Metoprolol Tartrate 5 mg 08/27/23 05:08 08/27/23 05:15 Metoprolol Tartrate 5mg/5ml Vial IV 08/27/23 05:09 5 mg ONCE ONE Administration ORDERS Category Date Time Status Cardiology Consult [Consult to Cardiology] [CONS] Cons 08/27/23 06:24 Active Routine CXR --portable [XR chest portable] Stat Exams 08/27/23 04:59 Completed CBC w/Auto Diff [Complete Blood Count Auto Diff] Stat Lab 08/27/23 04:55 Completed CMP [Comprehensive Metabolic Panel] Stat Lab 08/27/23 04:55 Completed Complete Blood Count Auto Diff AMLAB Lab 08/28/23 06:00 Ordered Comprehensive Metabolic Panel AMLAB Lab 08/28/23 06:00 Ordered Free T4 (Free Thyroxine) Stat Lab 08/27/23 04:55 Completed Magnesium AMLAB Lab 08/28/23 06:00 Ordered PT INR [Prothrombin Time INR] Stat Lab 08/27/23 04:55 Completed PTT [Activated Partial Thrombo Time] Stat Lab 08/27/23 04:55 Completed TSH [Thyroid Stimulating Hormone] Stat Lab 08/27/23 04:55 Received Trop I [Troponin I] Stat Lab 08/27/23 04:55 Completed Troponin I Q3H Lab 08/27/23 08:00 Ordered Troponin I Q3H Lab 08/27/23 11:00 Ordered MDM Narrative Medical Decision Narrative: In summary, this 62year old male presents to the emergency department today with palpitations, vague chest discomfort. Comorbidities of current condition include history of recent cardioversion due to uncontrollable tachycardia, diabetes, these increase overall morbidity. On initial evaluation patient is hemodynamically stable though he is tachycardic, afebrile, resting comfortably. Cardiac rhythm is normal. No peripheral edema, pulmonary exam benign, remainder of exam benign. differential diagnosis includes but is not limited to ACS, arrhythmia, electrolyte abnormality, dehydration, medication side effect. Based on these concerns, I ordered cardiac workup, chest x-ray, basic labs. ECG personally interpreted demonstrates tachycardia, I believe it is sinus rhythm though it is difficult to rule out atrial flutter due to the degree of tachycardia, regular rhythm, rate 135, normal axis, no STEMI, morphology is generally similar to prior EKGs which I reviewed. Patient received IV metoprolol and IV fluids for treatment. Labs personally reviewed demonstrate no leukocytosis or anemia, PT/INR and APTT elevated, patient is on anticoagulants, electrolytes normal, no findings of kidney dysfunction, trace elevation in ALT, nonspecific, nonactionable. Initial troponin undetectably low at less than 0.01. XR personally interpreted demonstrates no acute intrathoracic abnormality. See radiology read for final interpretation. I discussed this case with Dr. Abdul. We reviewed the EKG together. After discussing patient's previous presentation and current medications as well as his lack of response to the IV metoprolol, he recommended IV diltiazem drip and admission to the hospitalist for continued management. He also recommended thyroid studies. Free T4 is normal. Patient was reassessed after initiation of diltiazem drip, we have titrated it up without success in managing his heart rate. Patient continues to be stable. I discussed this patient with the hospitalist including Dr. Abdul's recommendations, hospitalist accepted for admission.
[2023-08-27 05:07] LABS: Basophils # 0.1 K/mm3 (0-0.2); Basophils % 1.5 % (0.1-2.0); Eosinophils # 0.4 K/mm3 (0.0-0.4); Eosinophils % 4.1 % (0.1-12.0); Hematocrit 52.6 % (42.0-52.0); Hemoglobin 17.3 g/dL (14.1-18.0); Lymphocytes # 2.7 K/mm3 (0.7-4.5); Lymphocytes % 29.6 % (10-50); Mean Corpuscular Hemoglobin 30.7 pg (27.0-31.2); Mean Corpuscular Volume 93.1 fl (80-94); Mean Platelet Volume 7.8 fl (7.4-10.4); Monocytes # 0.7 K/mm3 (0.1-1.0); Monocytes % 8.1 % (1.7-9.3); Neutrophils # 5.1 K/mm3 (1.8-7.8); Neutrophils % 56.7 % (37.0-80.0); Platelet Count 205 K/mm3 (142-424); Red Blood Count 5.65 M/mm3 (4.60-6.20); Red Cell Distribution Width 13.7 % (11.5-17.5)
[2023-08-27 05:09] LABS: Chloride 101 mmol/L (98-107); Potassium 4.3 mmoL/L (3.5-5.1); Sodium 137 mmol/L (136-145)
[2023-08-27 05:11] LABS: Alanine Aminotransferase 97 U/L (12-78); Aspartate Amino Transferase 49 U/L (17-59); Blood Urea Nitrogen 19 mg/dl (9-20); Creatinine Clearance Estimated 94 mL/min (50-200); Estimated Glomerular Filt Rate 68 ml/min (>60); GFR (African American) 82 ML/MIN (>60)
[2023-08-27 05:12] LABS: Albumin/Globulin Ratio 1.7 (1.1-1.8); Alkaline Phosphatase 55 U/L (38-126); Anion Gap 11.3 mEq/L (5-15); Bilirubin,Total 0.5 mg/dl (0.2-1.3); Calcium 10.1 mg/dl (8.4-10.2); Carbon Dioxide 29 mmol/L (22.0-30.0); Globulin 2.9 g/dL (1.3-3.2); Glucose 176 mg/dl (74-100); Total Protein,Serum 7.9 g/dl (6.3-8.2)
[2023-08-27 05:13] LABS: Activated Partial Thrombo Time 33.8 seconds (22.8-30.6); INR 1.31 (0.9-1.1); Prothrombin Time 13.9 seconds (10.1-12.5)
[2023-08-27] MEDS: METOPROLOL TARTRATE 5MG/5ML VIAL 5 MG IV (05:15)
[2023-08-27] MEDS: LACTATED RINGERS 1000ML 1,000 ML 999 ML IV (05:16)
[2023-08-27 05:26] LABS: Troponin I < 0.01 ng/ml (0.00-0.034)
--- NOTE | 2023-08-27 05:40 | PC.NURSE ---
paged cardiology to 1942
--- NOTE | 2023-08-27 05:44 | PC.NURSE ---
on phone with hospitalist
--- NOTE | 2023-08-27 05:46 | PC.NURSE ---
called housekeeper caregiver for bed. pt being admitted to hospitalist with dx arrhythmia
--- NOTE | 2023-08-27 05:50 | PC.NURSE ---
pt admitted for arrhythmia to room 218 as step down; to hospitalist with observation status. Pt will wait in ED until room becomes available; moving pt currently in 218 to different room due to step down room not being available.
[2023-08-27] MEDS: dilTIAZem HCL 100 MG in 0.9 % SODIUM CHLORIDE 100 ML 10 MG IV (05:51)
--- NOTE | 2023-08-27 05:56 | PC.NURSE ---
waiting on bed assignment. per house they are having to move around beds for this admit d/t reedzem gtt status
[2023-08-27 06:13] LABS: Free T4 (Free Thyroxine) 1.49 ng/dl (0.78-2.19)
[2023-08-27 06:27] LABS: Thyroid Stimulating Hormone 4.61 uIU/mL (0.465-4.68)
--- NOTE | 2023-08-27 06:29 | PC.NURSE ---
report called to laura trevino on 2nd floor at this time
--- NOTE | 2023-08-27 06:58 | PC.NURSE ---
arrived by w/c from ED
--- NOTE | 2023-08-27 07:39 | P.HP_ITS ---
History of Present Illness *Admission Date: 08/27/23 *Reason for visit:: tachycardia, SOA *History of present illness: Mr. Edmond is a 62-year-old male with history of diabetes, A-fib, recent cardioversion. Was admitted within the past month during which time he underwent cardioversion and was started on Xarelto. Rate was controlled in sinus at that time. He reports doing well until the past 2 days. Started having symptoms yesterday while mowing his lawn. He awoke this morning at 2 or 3 in the morning with sensation of heart racing and shortness of breath. He has been compliant with his medications. Denies any chest pain syncope, confusion, focal weakness. On arrival to the ER, patient's workup initiated including EKG and labs. Concerning finding for A-fib with RVR. Started on diltiazem drip and admitted to medicine for further management. On my evaluation after arriving to the floor, patient has been switched over to amiodarone after being evaluated by cardiology. Still in A-fib with heart rate in the 110s. Denies chest pain, just vague chest discomfort. On room air. at bedside. [facility] Disclaimer: The information contained in this section may have been updated after the patient was seen, as this information can be updated by other users. Medical History Atrial flutter Anal fistula Hyperlipidemia Hypertension Vitamin D deficiency (~12/06/17) Diabetes (~12/06/17) Family History Other Family history of acute congestive heart failure Family history of diabetes mellitus type II Family history of hyperlipidemia Family history of hypertension Family history of myocardial infarction Family history of stroke Social History Smoking Status: Former smoker tobacco type: cigarettes packs per day: 1 and cigars years smoked: 25 alcohol intake: current substance use type: denies use current occupational status: employed Travel in the last 8 weeks: None Review of Systems Review of Systems Review of systems (narrative): 14 point review of systems performed, pertinent positives and negatives as per HPI Constitutional Constitutional: Denies headache(s) and Denies weakness ENT Ears, Nose, Mouth, and Throat: Denies dizziness and Denies headache(s) *Musculoskeletal Musculoskeletal: Denies numbness and Denies tingling *Neurologic Neurologic: Denies dizziness, Denies headache(s), Denies numbness, Denies tingling and Denies weakness Meds Home Medications and Allergies Home Medications Medication Instructions Recorded Confirmed Type aspirin 81 mg tablet,delayed 81 mg PO DAILY 09/16/22 08/27/23 History release blood sugar diagnostic (Blood 09/16/22 08/16/23 History Glucose Test strips) blood-glucose meter (Blood Glucose 09/16/22 08/16/23 History Monitoring kit) lancets 30 gauge and blood glucose 09/16/22 08/16/23 History strips combo pack lisinopril 20 mg tablet 20 mg PO BID #180 tabs 07/04/23 08/27/23 Rx atorvastatin 10 mg tablet 10 mg PO DAILY 08/06/23 08/27/23 History dapagliflozin propanediol 10 mg 10 mg PO DAILY 08/06/23 08/27/23 History tablet (Farxiga) metformin 1,000 mg tablet 1,000 mg PO BIDWMEAL 08/06/23 08/27/23 History semaglutide 0.25 mg or 0.5 mg (2 0.25 mg SQ WEEKLY Diabetes 08/06/23 08/27/23 History mg/3 mL) subcutaneous pen injector (Ozempic) furosemide 20 mg tablet 20 mg PO DAILY 30 days #30 tabs 08/08/23 08/27/23 Rx rivaroxaban 20 mg tablet (Xarelto) 20 mg PO QPMWITHMEAL Blood 08/15/23 08/27/23 Rx thinner/afib #90 tabs digoxin 125 mcg (0.125 mg) tablet 125 mg PO DAILY 08/27/23 08/27/23 History diltiazem HCl 120 mg 120 mg PO DAILY 08/27/23 08/27/23 History capsule,extended release 24 hr (Cartia XT) metoprolol succinate 100 mg 100 mg PO BID 08/27/23 08/27/23 History tablet,extended release 24 hr New Prescriptions to Start Prescriptions: Allergies Allergy/AdvReac Type Severity Reaction Status Date / Time No Known Allergies Allergy Verified 08/16/23 13:47 Exam Data for Last 24 hours Vital signs and Labs for Last 24 Hours: Temp Pulse Resp BP Pulse Ox O2 Del Method 98.3 F 129 H 18 107/64 L 97 Room Air 08/27/23 07:05 08/27/23 07:14 08/27/23 07:14 08/27/23 07:14 08/27/23 07:14 08/27/23 07:14 Laboratory Results - last 24 hr 08/27/23 04:55: WBC 9.0, RBC 5.65, Hgb 17.3, Hct 52.6 H, MCV 93.1, MCH 30.7, MCHC 33.0, RDW 13.7, Plt Count 205, MPV 7.8, Neut % (Auto) 56.7, Lymph % (Auto) 29.6, [place] % (Auto) 8.1, Eos % (Auto) 4.1, Baso % (Auto) 1.5, Neut # (Auto) 5.1, Lymph # (Auto) 2.7, [place] # (Auto) 0.7, Eos # (Auto) 0.4, Baso # (Auto) 0.1, PT 13.9 H, INR 1.31 H, APTT 33.8 H, Sodium 137, Potassium 4.3, Chloride 101, Carbon Dioxide 29, Anion Gap 11.3, BUN 19, Creatinine 1.10, Estimated Creat Clear 94, Estimated GFR 68, Est GFR ( Amer) 82, Glucose 176 H, Calcium 10.1, Total Bilirubin 0.5, AST 49, ALT 97 H, Alkaline Phosphatase 55, Troponin I < 0.01, Total Protein 7.9, Albumin 5.0, Globulin 2.9, Albumin/Globulin Ratio 1.7, TSH 4.61, Free T4 1.49 I & O for Last 24 hours: Intake & Output 08/24/23 08/25/23 08/26/23 08/27/23 23:59 23:59 23:59 23:59 Intake Total 11.500 / 11.500 Balance 11.500 / 11.500 Weight 95.254 kg Constitutional Constitutional: no acute distress and obese *Routine HEENT Exam Head: Present normocephalic Eye: Present EOMI and PERRL ENT: Present mucous membranes moist *Routine Neck Exam Neck: Present supple; Absent lymphadenopathy Routine Chest/Breast/Axilla Exam Chest wall: Absent tenderness *Routine Respiratory Exam Respiratory: Present CTA bilaterally; Absent rhonchi, wheezes or crackles *Routine Cardiovascular Exam Cardiovascular: Present tachycardia and irregular rhythm *Routine Abdominal Exam Abdominal: Present soft and normoactive bowel sounds; Absent tenderness *Routine Rectal Exam Rectal:: deferred *Routine Genitalia Exam Genitalia:: deferred *Routine Extremities Exam Extremities: Absent cyanosis, clubbing or edema *Routine Skin Exam Skin: Present warm; Absent rash *Routine Neurological Exam Neurological: Present alert, oriented X3 and moving all extremities; Absent altered mental status Assessment and Plan *Assessment and plan (1) Atrial tachycardia: Status: Acute Category: Medical Code(s): I47.19 - Other supraventricular tachycardia (2) Type 2 diabetes mellitus: Status: Acute Qualifiers: Diabetes mellitus intermodal customer service insulin use: without intermodal customer service use Diabetes mellitus complication status: with circulatory complication Diabetes mellitus complication detail: with other circulatory complications Qualified Code(s): E11.59 - Type 2 diabetes mellitus with other circulatory complications Category: Medical Code(s): E11.9 - Type 2 diabetes mellitus without complications (3) Atrial fibrillation: Status: Acute Qualifiers: Atrial fibrillation type: paroxysmal Qualified Code(s): I48.0 - Paroxysmal atrial fibrillation Category: Medical Code(s): I48.91 - Unspecified atrial fibrillation (4) Atrial flutter with rapid ventricular response: Status: Acute Category: Medical Code(s): I48.92 - Unspecified atrial flutter (5) Hypertension: Status: Chronic Qualifiers: Hypertension type: unspecified Qualified Code(s): I10 - Essential (primary) hypertension Category: Medical Code(s): I10 - Essential (primary) hypertension (6) Diabetes: Status: Chronic Qualifiers: Diabetes mellitus type: other specified (including KEVIN) Diabetes mellitus [employer] customer [employer] insulin use: unspecified intermodal customer service insulin use status Diabetes mellitus complication status: with other specified complication Qualified Code(s): E13.69 - Other specified diabetes mellitus with other specified complication Category: Medical Code(s): E11.9 - Type 2 diabetes mellitus without complications (7) Hyperlipidemia: Status: Chronic Qualifiers: Hyperlipidemia type: unspecified Qualified Code(s): E78.5 - Hyperlipidemia, unspecified Category: Medical Code(s): E78.5 - Hyperlipidemia, unspecified Plan patient is a 62-year-old male with past medical history of diabetes mellitus atrial fibrillation hypertension hyperlipidemia who presented to hospital due to shortness of breath. Symptoms recurrent. Recent admission for cardioversion. Was discharged in sinus rhythm. Discussed case with ER, request admission for diltiazem drip and further evaluation by cardiology. Medicine agreed to admit. Has been switched to amiodarone drip at this time. Cardiology evaluating. Necessitating inpatient management. Problems addressed as follows: Atrial fibrillation Hypertension hyperlipidemia -Cardiology consulted, discussed case this morning. Will discontinue diltiazem. Initiate amiodarone drip. Will monitor for 24 hours, if does not convert, plan for AC in the morning. - Continue Xarelto for long-term anticoagulation - Continue aspirin 81 mg daily, Lipitor 10 mg nightly, Lasix 40 mg IV twice daily. Lisinopril 20 mg twice daily -Stop diltiazem and digoxin - reduce metoprolol succinate to 50 mg daily for now and adjust up as needed. - Likely needs outpatient referral to EP CBC, CMP, magnesium ordered for the morning. DM: Sliding scale insulin with fingersticks ACHS. Continue metformin and Farxiga. Glucose currently less than 200. A1C 9.4. will initiate nighttime insulin glargine 10 units Full code Diabetic diet Xarelto
--- NOTE | 2023-08-27 07:45 | PC.NURSE ---
Yas Wilkins PA at bedside
[2023-08-27] MEDS: 0.9 % SODIUM CHLORIDE 1000ML 1,000 ML 50 ML IV (08:00)
[2023-08-27 08:55] LABS: Troponin I < 0.01 ng/ml (0.00-0.034)
--- NOTE | 2023-08-27 08:55 | PC.NURSE ---
spoke with JAQUAN Wilkins regarding pt's bp becoming hypotensive while on Cardizem. verbal order for Amiodarone bolus and drip.
[2023-08-27] MEDS: PANTOPRAZOLE 40MG TABLET 40 MG PO (08:56)
--- NOTE | 2023-08-27 09:00 | HMH.PHAINT1 ---
Pharmacy Intervention Comments: Home medication list verified via outside pharmacy/office visit
[2023-08-27] MEDS: AMIODARONE HCL 150 MG in DEXTROSE 5 % IN WATER 100 ML 600 MG IV (09:07)
[2023-08-27] MEDS: AMIODARONE HCL 900 MG in DEXTROSE 5 % IN WATER 500 ML 33.2999999999999972 MG IV (09:18)
--- NOTE | 2023-08-27 10:29 | EXP.CARD.CON ---
History of Present Illness History of Present Illness Consult date: 08/27/23 Requesting physician: Mumtaz Pope Consult reason: atrial fibrillation Chief complaint: Fatigue, A. fib Additional Medical History:: 1. Paroxysmal atrial fibrillation A. History of cardioversion to sinus rhythm in September 2022 in August 2023 2. Hypertension A. AC, 08/2023, EF 55%, No significant valve disease. No evidence of [place] or [place] thrombus 3. Hyperlipidemia 4. Diabetes mellitus type 2 5. GXT Myoview, normal, 09/2022 History of present illness: This is a 62-year-old gentleman who was admitted to the hospital with atrial fibrillation with RVR. He presented to the hospital with complaints of racing of the heart. He states that he was also short of breath and having an aching sensation in his chest. He states that he has been having the palpitations since he woke up in the middle of the night the day prior to his admission. The patient states that he was also having some pain in his chest with exertion. He states that when he got up the next morning his heart rate was in the 120s and he could not get his heart rate any lower than around 102 bpm. He states that he did take an extra metoprolol through the night and his heart rate did drop to 78 but went right back up into the 120s. He denies any lower extremity edema. He denies any fever, chills, nausea, vomiting, diarrhea, PND or orthopnea. The above per Dr. Pope. Events as noted above confirmed with the patient. He does relate significant emotional upset at work on Sunday which she feels has prompted this episode of A-fib Diltiazem has been started Overnight was discontinued due to low blood pressure. Second attempt was tried this morning and again resulted in the same response. Therefore amiodarone loading was begun. [facility] Disclaimer: The information contained in this section may have been updated after the patient was seen, as this information can be updated by other users. Medical History Atrial flutter Anal fistula Hyperlipidemia Hypertension Vitamin D deficiency (~12/06/17) Diabetes (~12/06/17) Family History Other Family history of acute congestive heart failure Family history of diabetes mellitus type II Family history of hyperlipidemia Family history of hypertension Family history of myocardial infarction Family history of stroke Social History (Updated 08/27/23 @ 07:11 by Akua Modi RN) Smoking Status: Former smoker tobacco type: cigarettes packs per day: 1 and cigars years smoked: 25 alcohol intake: current substance use type: denies use current occupational status: employed Travel in the last 8 weeks: None Review of Systems Review of Systems Review of systems:: pertinent systems reviewed and negative unless documented below Constitutional Constitutional: Denies headache(s) and Denies weakness ENT Ears, Nose, Mouth, and Throat: Denies dizziness and Denies headache(s) *Musculoskeletal Musculoskeletal: Denies numbness and Denies tingling *Neurologic Neurologic: Denies dizziness, Denies headache(s), Denies numbness, Denies tingling and Denies weakness Exam Data for Last 24 hours Vital signs and Labs for Last 24 Hours: Temp Pulse Resp BP Pulse Ox O2 Del Method 98.3 F 132 H 18 134/59 L 98 Room Air 08/27/23 07:05 08/27/23 09:49 08/27/23 09:49 08/27/23 09:49 08/27/23 09:49 08/27/23 09:49 Laboratory Results - last 24 hr 08/27/23 04:55: WBC 9.0, RBC 5.65, Hgb 17.3, Hct 52.6 H, MCV 93.1, MCH 30.7, MCHC 33.0, RDW 13.7, Plt Count 205, MPV 7.8, Neut % (Auto) 56.7, Lymph % (Auto) 29.6, [place] % (Auto) 8.1, Eos % (Auto) 4.1, Baso % (Auto) 1.5, Neut # (Auto) 5.1, Lymph # (Auto) 2.7, [place] # (Auto) 0.7, Eos # (Auto) 0.4, Baso # (Auto) 0.1, PT 13.9 H, INR 1.31 H, APTT 33.8 H, Sodium 137, Potassium 4.3, Chloride 101, Carbon Dioxide 29, Anion Gap 11.3, BUN 19, Creatinine 1.10, Estimated Creat Clear 94, Estimated GFR 68, Est GFR ( Amer) 82, Glucose 176 H, Calcium 10.1, Total Bilirubin 0.5, AST 49, ALT 97 H, Alkaline Phosphatase 55, Troponin I < 0.01, Total Protein 7.9, Albumin 5.0, Globulin 2.9, Albumin/Globulin Ratio 1.7, TSH 4.61, Free T4 1.49 08/27/23 08:12: Troponin I < 0.01 I & O for Last 24 hours: Intake & Output 08/24/23 08/25/23 08/26/23 08/27/23 11:59 11:59 11:59 11:59 Intake Total 12.667 / 12.667 Output Total 1050 / 1050 Balance -1037.333 / -1037.333 Weight 210 lb Constitutional Constitutional: no acute distress *Routine Respiratory Exam Respiratory: Present CTA bilaterally *Routine Cardiovascular Exam Cardiovascular: Present irregularly irregular *Routine Extremities Exam Extremities: Absent edema *Routine Neurological Exam Neurological: Present alert, oriented X3 and CN II-XII intact Meds Home Medications and Allergies Home Medications Medication Instructions Recorded Confirmed Type aspirin 81 mg tablet,delayed 81 mg PO DAILY 09/16/22 08/27/23 History release blood sugar diagnostic (Blood 09/16/22 08/16/23 History Glucose Test strips) blood-glucose meter (Blood Glucose 09/16/22 08/16/23 History Monitoring kit) lancets 30 gauge and blood glucose 09/16/22 08/16/23 History strips combo pack lisinopril 20 mg tablet 20 mg PO BID #180 tabs 07/04/23 08/27/23 Rx atorvastatin 10 mg tablet 10 mg PO DAILY 08/06/23 08/27/23 History dapagliflozin propanediol 10 mg 10 mg PO DAILY 08/06/23 08/27/23 History tablet (Farxiga) metformin 1,000 mg tablet 1,000 mg PO BIDWMEAL 08/06/23 08/27/23 History semaglutide 0.25 mg or 0.5 mg (2 0.25 mg SQ WEEKLY Diabetes 08/06/23 08/27/23 History mg/3 mL) subcutaneous pen injector (Ozempic) furosemide 20 mg tablet 20 mg PO DAILY 30 days #30 tabs 08/08/23 08/27/23 Rx rivaroxaban 20 mg tablet (Xarelto) 20 mg PO QPMWITHMEAL Blood 08/15/23 08/27/23 Rx thinner/afib #90 tabs digoxin 125 mcg (0.125 mg) tablet 125 mg PO DAILY 08/27/23 08/27/23 History diltiazem HCl 120 mg 120 mg PO DAILY 08/27/23 08/27/23 History capsule,extended release 24 hr (Cartia XT) metoprolol succinate 100 mg 100 mg PO BID 08/27/23 08/27/23 History tablet,extended release 24 hr New Prescriptions to Start Prescriptions: Allergies Allergy/AdvReac Type Severity Reaction Status Date / Time No Known Allergies Allergy Verified 08/16/23 13:47 Assessment and Plan *Assessment and plan (1) Atrial flutter with rapid ventricular response: Status: Acute Category: Medical Code(s): I48.92 - Unspecified atrial flutter (2) Atrial flutter: Status: Acute Qualifiers: Atrial flutter type: unspecified Qualified Code(s): I48.92 - Unspecified atrial flutter Category: Medical Code(s): I48.92 - Unspecified atrial flutter (3) Type 2 diabetes mellitus: Status: Acute Qualifiers: Diabetes mellitus complication detail: with other circulatory complications Diabetes mellitus complication status: with circulatory complication Diabetes mellitus retirement insulin use: without terminal operator use Qualified Code(s): E11.59 - Type 2 diabetes mellitus with other circulatory complications Category: Medical Code(s): E11.9 - Type 2 diabetes mellitus without complications (4) Class 1 obesity: Status: Chronic Category: Medical Code(s): E66.9 - Obesity, unspecified (5) Hypertension: Status: Chronic Qualifiers: Hypertension type: unspecified Qualified Code(s): I10 - Essential (primary) hypertension Category: Medical Code(s): I10 - Essential (primary) hypertension (6) Diabetes: Status: Chronic Qualifiers: Diabetes mellitus complication status: with other specified complication Diabetes mellitus terminal operator insulin use: unspecified retirement insulin use status Diabetes mellitus type: other specified (including KEVIN) Qualified Code(s): E13.69 - Other specified diabetes mellitus with other specified complication Category: Medical Code(s): E11.9 - Type 2 diabetes mellitus without complications (7) Hyperlipidemia: Status: Chronic Qualifiers: Hyperlipidemia type: unspecified Qualified Code(s): E78.5 - Hyperlipidemia, unspecified Category: Medical Code(s): E78.5 - Hyperlipidemia, unspecified Plan 1. Atrial fibrillation/flutter with RVR, recurrent despite combo of BB, digoxin and Diltiazem -Start IV amio -continue Xarelto -TSH normal -stop digoxin and diltiazem for now -reduce metoprolol succ to 50 mg daily for now and adjust up as needed. 2. DM -on oral meds including farxiga 3. HTN -on lisinopril, metoprolol and diltiazem 4. Hyperlipidemia -on statin -LDL 84 Await response to Amiodarone loading and oral dosing May need AC/Cardioversion tomorrow Likely needs outpatient referral to EP
[2023-08-27 11:19] LABS: POC Glucose,Bedside 170 (70-110)
[2023-08-27 11:52] LABS: Troponin I < 0.01 ng/ml (0.00-0.034)
[2023-08-27 13:00] LABS: Hemoglobin A1C 9.4 % (4.0-6.0)
[2023-08-27] MEDS: METOPROLOL SUCCINATE XL 50MG TABLET 50 MG PO (13:12)
--- NOTE | 2023-08-27 14:57 | PC.NURSE ---
Amiodarone drip infusing for 6 hours, rate changed at this time to 16.7 ml/hr.
[2023-08-27 16:15] LABS: POC Glucose,Bedside 264 (70-110)
[2023-08-27] MEDS: 0.9 % SODIUM CHLORIDE 1000ML 1,000 ML 999 ML IV (16:28)
[2023-08-27] MEDS: METFORMIN 500MG TABLET 1000 MG PO (16:30)
[2023-08-27] MEDS: humaLOG 100 UNITS/ML 3ML VIAL (SSI) SQ (16:30)
[2023-08-27] MEDS: RIVAROXABAN 10MG TABLET 20 MG PO (16:30)
[2023-08-27] MEDS: INSULIN GLARGINE 100 UNITS/ML 3ML FLEXPEN 10 UNIT SQ (20:14)
[2023-08-27] MEDS: LISINOPRIL 20MG TABLET 20 MG PO (20:15)
[2023-08-27 21:11] LABS: POC Glucose,Bedside 146 (70-110)
[2023-08-28] VITALS (8 sets, daily range): BP systolic 94–124; BP diastolic 67–79; PULSE 70–128; RESP 12–22; TEMP 36.5–36.8; O2SAT 93–100; BMI 31.1
--- NOTE | 2023-08-28 04:20 | ECG_ITS ---
APPROVED REPORT Exam: Resting ECG HR:128 bpm ECG Measurements Heart Rate 128 AXES QRSd 89 QRS 51 QT 384 T 252 QTc 460 Conclusion ATRIAL FLUTTER/TACHYCARDIA WITH RAPID VENTRICULAR RESPONSE ST DEVIATION AND MODERATE T-WAVE ABNORMALITY, CONSIDER ANTEROLATERAL ISCHEMIA [-0.1+ mV T-WAVE IN V3-V6] ST DEVIATION AND MODERATE T-WAVE ABNORMALITY, CONSIDER INFERIOR ISCHEMIA [-0.1+ mV T-WAVE IN II/aVF] Electronically signed by : CAROL NOLAN, 08/28/2023 15:30:09
--- NOTE | 2023-08-28 04:50 | ECG_ITS ---
APPROVED REPORT Exam: Resting ECG HR:69 bpm ECG Measurements Heart Rate 69 AXES NE 167 P 70 QRSd 90 QRS 40 QT 396 T 60 QTc 416 Conclusion SINUS RHYTHM NORMAL ECG Electronically signed by : CAROL NOLAN, 08/28/2023 15:30:50
--- NOTE | 2023-08-28 05:07 | PC.NURSE ---
EQ, CLINICAL NURSE SPECIALIST NOTIFIED OF PT CONVERSION TO NSR WITH EKG CONFIRMING; CLINICAL NURSE SPECIALIST STATED THAT CARDS DOES NOT NEED TO BE PAGED AT THIS TIME AND WILL ROUND ON PT IN AM D/T POSSIBLE AC THIS AM.
[2023-08-28 06:09] LABS: POC Glucose,Bedside 144 (70-110)
--- NOTE | 2023-08-28 07:41 | PC.NURSE ---
All care and documentation provided by SN Regino was completed under my direct supervision. Digna Merino RN
[2023-08-28 07:52] LABS: Alanine Aminotransferase 88 U/L (12-78); Albumin/Globulin Ratio 1.7 (1.1-1.8); Alkaline Phosphatase 45 U/L (38-126); Anion Gap 10.3 mEq/L (5-15); Aspartate Amino Transferase 57 U/L (17-59); Bilirubin,Total 0.9 mg/dl (0.2-1.3); Blood Urea Nitrogen 15 mg/dl (9-20); Calcium 9.1 mg/dl (8.4-10.2); Carbon Dioxide 26 mmol/L (22.0-30.0); Chloride 104 mmol/L (98-107); Creatinine Clearance Estimated 103 mL/min (50-200); Estimated Glomerular Filt Rate 86 ml/min (>60); GFR (African American) 103 ML/MIN (>60); Globulin 2.4 g/dL (1.3-3.2); Glucose 159 mg/dl (74-100); Potassium 4.3 mmoL/L (3.5-5.1); Sodium 136 mmol/L (136-145); Total Protein,Serum 6.4 g/dl (6.3-8.2)
[2023-08-28 07:54] LABS: Basophils # 0.1 K/mm3 (0-0.2); Basophils % 0.6 % (0.1-2.0); Eosinophils # 0.4 K/mm3 (0.0-0.4); Eosinophils % 4.7 % (0.1-12.0); Hemoglobin 16.2 g/dL (14.1-18.0); Lymphocytes # 2.2 K/mm3 (0.7-4.5); Lymphocytes % 25.9 % (10-50); Mean Corpuscular HGB Conc 33.8 g/dL (31.8-35.4); Mean Corpuscular Volume 91.8 fl (80-94); Mean Platelet Volume 7.8 fl (7.4-10.4); Monocytes # 0.7 K/mm3 (0.1-1.0); Monocytes % 8.1 % (1.7-9.3); Neutrophils # 5.1 K/mm3 (1.8-7.8); Neutrophils % 60.8 % (37.0-80.0); Platelet Count 191 K/mm3 (142-424); Red Blood Count 5.22 M/mm3 (4.60-6.20); Red Cell Distribution Width 13.5 % (11.5-17.5); White Blood Count 8.3 K/mm3 (4.8-10.8)
[2023-08-28] MEDS: ASPIRIN EC 81MG TABLET 81 MG PO (08:17)
[2023-08-28] MEDS: DAPAGLIFLOZIN PROPANEDIOL 10 MG TABLET PO (08:17)
[2023-08-28] MEDS: ATORVASTATIN 10MG TABLET 10 MG PO (08:17)
[2023-08-28] MEDS: FUROSEMIDE 20MG TABLET 20 MG PO (08:17)
[2023-08-28] MEDS: PANTOPRAZOLE 40MG TABLET 40 MG PO (08:17)
[2023-08-28] MEDS: METFORMIN 500MG TABLET 1000 MG PO (08:17)
[2023-08-28] MEDS: LISINOPRIL 20MG TABLET 20 MG PO (08:17)
[2023-08-28] MEDS: AMIODARONE 200MG TABLET 400 MG PO (08:56)
--- NOTE | 2023-08-28 10:04 | EXP.CARD.PN ---
Subjective Subjective Date: 08/28/23 Time: 10:04 Principal diagnosis: A-fib with RVR Interval history: 62-year-old white male in bed in no acute distress. Patient converted back to sinus rhythm earlier this morning. He is finishing up the IV amiodarone drip. Exam Data for Last 24 hours Vital signs and Labs for Last 24 Hours: Temp Pulse Resp BP Pulse Ox O2 Del Method 97.7 F 81 22 109/69 L 93 L Room Air 08/28/23 08:00 08/28/23 08:00 08/28/23 08:00 08/28/23 08:00 08/28/23 08:00 08/28/23 08:52 Laboratory Results - last 24 hr 08/27/23 08:12: Hemoglobin A1c 9.4 H 08/27/23 11:01: POC Glucose 170 H 08/27/23 11:03: Troponin I < 0.01 08/27/23 16:03: POC Glucose 264 H 08/27/23 19:48: POC Glucose 146 H 08/28/23 05:57: POC Glucose 144 H 08/28/23 06:40: WBC 8.3, RBC 5.22, Hgb 16.2, Hct 48.0, MCV 91.8, MCH 31.0, MCHC 33.8, RDW 13.5, Plt Count 191, MPV 7.8, Neut % (Auto) 60.8, Lymph % (Auto) 25.9, [place] % (Auto) 8.1, Eos % (Auto) 4.7, Baso % (Auto) 0.6, Neut # (Auto) 5.1, Lymph # (Auto) 2.2, [place] # (Auto) 0.7, Eos # (Auto) 0.4, Baso # (Auto) 0.1, Sodium 136, Potassium 4.3, Chloride 104, Carbon Dioxide 26, Anion Gap 10.3, BUN 15, Creatinine 0.90, Estimated Creat Clear 103, Estimated GFR 86, Est GFR ( Amer) 103 D, Glucose 159 H, Calcium 9.1, Magnesium 2.0, Total Bilirubin 0.9, AST 57, ALT 88 H, Alkaline Phosphatase 45, Total Protein 6.4, Albumin 4.0 D, Globulin 2.4, Albumin/Globulin Ratio 1.7 I & O for Last 24 hours: Intake & Output 08/25/23 08/26/23 08/27/23 08/28/23 11:59 11:59 11:59 11:59 Intake Total 12.667 / 12.667 735 / 735 Output Total 1450 / 1450 2520 / 2520 Balance -1437.333 / -1437.333 -1785 / -1785 Weight 210 lb 209 lb 15.845 oz Constitutional Constitutional: no acute distress *Routine Respiratory Exam Respiratory: Present CTA bilaterally *Routine Cardiovascular Exam Cardiovascular: Present RRR *Routine Extremities Exam Extremities: Absent edema *Routine Neurological Exam Neurological: Present alert, oriented X3 and CN II-XII intact Progress Note: A&P Assessment and plan (1) Atrial tachycardia: Status: Acute (2) Type 2 diabetes mellitus: Status: Acute (3) Atrial fibrillation: Status: Acute (4) Atrial flutter with rapid ventricular response: Status: Acute (5) Hypertension: Status: Chronic (6) Diabetes: Status: Chronic (7) Hyperlipidemia: Status: Chronic Assessment and Plan Assessment and Plan for All Diagnoses:: 1. Atrial fibrillation/flutter with RVR, recurrent despite combo of BB, digoxin and Diltiazem, spontaneous conversion to sinus rhythm overnight -Finishing up IV Amio. Oral amiodarone started. -continue Xarelto -TSH normal -stop digoxin and diltiazem -reduce metoprolol succ to 50 mg daily for now and adjust up as needed. 2. DM -on oral meds including farxiga 3. HTN -on lisinopril, metoprolol 4. Hyperlipidemia -on statin -LDL 84 Stable from a cardiac standpoint for discharge home. Home medication recommendations Aspirin 81 mg daily Lipitor 10 mg daily Xarelto 20 mg daily Farxiga 10 mg daily Lasix 20 mg daily Lisinopril 20 mg twice daily Metoprolol succinate 50 mg daily Amiodarone 400 mg twice daily for 1 week then reduce to once daily Stop diltiazem and digoxin Follow-up in our office in 1 week. Off work until follow-up. He will need referral to Dr. Tanner for consideration of ablation therapy for his A-fib
[2023-08-28 11:16] LABS: POC Glucose,Bedside 196 (70-110)
[2023-08-28] MEDS: humaLOG 100 UNITS/ML 3ML VIAL (SSI) SQ (11:59)
--- NOTE | 2023-08-28 12:48 | EXP.DC.SUM ---
General Admission date:: 08/27/23 Discharge date: 08/28/23 HPI HPI HPI: Mr. Edmond is a 62-year-old male with history of diabetes, A-fib, recent cardioversion. Was admitted within the past month during which time he underwent cardioversion and was started on Xarelto. Rate was controlled in sinus at that time. He reports doing well until the past 2 days. Started having symptoms yesterday while mowing his lawn. He awoke this morning at 2 or 3 in the morning with sensation of heart racing and shortness of breath. He has been compliant with his medications. Denies any chest pain syncope, confusion, focal weakness. On arrival to the ER, patient's workup initiated including EKG and labs. Concerning finding for A-fib with RVR. Started on diltiazem drip and admitted to medicine for further management. On my evaluation after arriving to the floor, patient has been switched over to amiodarone after being evaluated by cardiology. Still in A-fib with heart rate in the 110s. Denies chest pain, just vague chest discomfort. On room air. at bedside. Hospital Course Hospital Course Hospital Course: Mr. Edmond is a 62-year-old male with past medical history of diabetes mellitus atrial fibrillation hypertension hyperlipidemia who presented to hospital due to shortness of breath. Symptoms recurrent. Recent admission for cardioversion. Was discharged in sinus rhythm. Discussed case with ER, request admission for diltiazem drip and further evaluation by cardiology. Medicine agreed to admit. Remained in A-fib on diltiazem but had improvement rate control. Will switch to amiodarone prior to attempting cardioversion. Spontaneously converted to sinus rhythm. Will continue amiodarone at discharge. Follow with cardiology as an outpatient. Stable to discharge home. Problems addressed as follows: Atrial fibrillation Hypertension hyperlipidemia -Admitted with A-fib with RVR. Was initiated on diltiazem drip. Rate improved but still in A-fib. Was transition to amiodarone. Overnight, converted to sinus rhythm on amiodarone drip. Transitioned to oral to continue 40 mg twice daily for at least a week until he follows up with cardiology. Will make further dose adjustments at that time. Cardiology assisted with care during admission. Continue Xarelto daily for long-term anticoagulation. Continue aspirin 81 mg daily, Lipitor 10 mg nightly, Lasix 40 mg IV twice daily, and Lisinopril 20 mg twice daily -Stop diltiazem and digoxin - reduce metoprolol succinate to 50 mg daily for now and adjust up as needed. -Anticipate referral to electrophysiology as an outpatient. Cardiology to coordinate this. Patient has expressed an interest in seeing Dr. Tanner. Diabetes: Farxiga 10 mg daily. Metformin 1000 twice daily with meals. Ozempic 0.25 mg subcu. Further management as an outpatient by PCP. Total time spent on discharge 32 minutes in counseling, documentation, chart review, and direct care with patient. Exam Data for Last 24 hours Vital signs and Labs for Last 24 Hours: Temp Pulse Resp BP Pulse Ox O2 Del Method 98.2 F 71 18 124/77 95 Room Air 08/28/23 12:05 08/28/23 12:00 08/28/23 12:00 08/28/23 12:00 08/28/23 12:00 08/28/23 12:00 Laboratory Results - last 24 hr 08/27/23 08:12: Hemoglobin A1c 9.4 H 08/27/23 16:03: POC Glucose 264 H 08/27/23 19:48: POC Glucose 146 H 08/28/23 05:57: POC Glucose 144 H 08/28/23 06:40: WBC 8.3, RBC 5.22, Hgb 16.2, Hct 48.0, MCV 91.8, MCH 31.0, MCHC 33.8, RDW 13.5, Plt Count 191, MPV 7.8, Neut % (Auto) 60.8, Lymph % (Auto) 25.9, [place] % (Auto) 8.1, Eos % (Auto) 4.7, Baso % (Auto) 0.6, Neut # (Auto) 5.1, Lymph # (Auto) 2.2, [place] # (Auto) 0.7, Eos # (Auto) 0.4, Baso # (Auto) 0.1, Sodium 136, Potassium 4.3, Chloride 104, Carbon Dioxide 26, Anion Gap 10.3, BUN 15, Creatinine 0.90, Estimated Creat Clear 103, Estimated GFR 86, Est GFR ( Amer) 103 D, Glucose 159 H, Calcium 9.1, Magnesium 2.0, Total Bilirubin 0.9, AST 57, ALT 88 H, Alkaline Phosphatase 45, Total Protein 6.4, Albumin 4.0 D, Globulin 2.4, Albumin/Globulin Ratio 1.7 08/28/23 10:58: POC Glucose 196 H I & O for Last 24 hours: Intake & Output 08/25/23 08/26/23 08/27/23 08/28/23 23:59 23:59 23:59 23:59 Intake Total 482.667 / 747.667 265 / 265 Output Total 1950 / 2650 2019 Balance -1467.333 / -1902.333 -1755 / -1755 Weight 95.254 kg 95.25 kg Constitutional Constitutional: no acute distress and obese *Routine HEENT Exam Head: Present normocephalic and atraumatic Eye: Present EOMI and PERRL ENT: Present mucous membranes moist *Routine Neck Exam Neck: Present supple *Routine Respiratory Exam Respiratory: Present CTA bilaterally and symmetric chest movement *Routine Cardiovascular Exam Cardiovascular: Present RRR, Normal S1 and Normal S2 *Routine Abdominal Exam Abdominal: Present soft and normoactive bowel sounds; Absent tenderness *Routine Rectal Exam Patient deferred: visual exam *Routine Exam Patient deferred: penile exam *Routine Extremities Exam Extremities: Present full ROM and normal capillary refill; Absent edema *Routine Skin Exam Skin: Present intact, dry and warm *Routine Neurological Exam Neurological: Present alert, oriented X3, CN II-XII intact and moving all extremities; Absent altered mental status Detailed Neck Exam: Thyroids Thyroid: Absent bruit Results Data Completed and Pending Labs on day of discharge: Labs from last 24 hours 08/28/23 08/28/23 08/28/23 10:58 06:40 05:57 WBC 8.3 RBC 5.22 Hgb 16.2 Hct 48.0 MCV 91.8 MCH 31.0 MCHC 33.8 RDW 13.5 Plt Count 191 MPV 7.8 Neut % (Auto) 60.8 Lymph % (Auto) 25.9 [place] % (Auto) 8.1 Eos % (Auto) 4.7 Baso % (Auto) 0.6 Neut # (Auto) 5.1 Lymph # (Auto) 2.2 [place] # (Auto) 0.7 Eos # (Auto) 0.4 Baso # (Auto) 0.1 Sodium 136 Potassium 4.3 Chloride 104 Carbon Dioxide 26 Anion Gap 10.3 BUN 15 Creatinine 0.90 Estimated Creat Clear 103 Estimated GFR 86 Est GFR ( Amer) 103 D Glucose 159 H POC Glucose 196 H 144 H Hemoglobin A1c Calcium 9.1 Magnesium 2.0 Total Bilirubin 0.9 AST 57 ALT 88 H Alkaline Phosphatase 45 Total Protein 6.4 Albumin 4.0 D Globulin 2.4 Albumin/Globulin Ratio 1.7 08/27/23 08/27/23 08/27/23 19:48 16:03 08:12 WBC RBC Hgb Hct MCV MCH MCHC RDW Plt Count MPV Neut % (Auto) Lymph % (Auto) [place] % (Auto) Eos % (Auto) Baso % (Auto) Neut # (Auto) Lymph # (Auto) [place] # (Auto) Eos # (Auto) Baso # (Auto) Sodium Potassium Chloride Carbon Dioxide Anion Gap BUN Creatinine Estimated Creat Clear Estimated GFR Est GFR ( Amer) Glucose POC Glucose 146 H 264 H Hemoglobin A1c 9.4 H Calcium Magnesium Total Bilirubin AST ALT Alkaline Phosphatase Total Protein Albumin Globulin Albumin/Globulin Ratio DS: Diagnosis Discharge Diagnosis (1) Atrial tachycardia: Status: Acute Code(s): I47.19 - Other supraventricular tachycardia (2) Type 2 diabetes mellitus: Status: Acute Code(s): E11.9 - Type 2 diabetes mellitus without complications Qualifiers: Diabetes mellitus complication detail: with other circulatory complications Diabetes mellitus complication status: with circulatory complication Diabetes mellitus fdc insulin use: without fdc use Qualified Code(s): E11.59 - Type 2 diabetes mellitus with other circulatory complications (3) Atrial fibrillation: Status: Acute Code(s): I48.91 - Unspecified atrial fibrillation Qualifiers: Atrial fibrillation type: paroxysmal Qualified Code(s): I48.0 - Paroxysmal atrial fibrillation (4) Atrial flutter with rapid ventricular response: Status: Acute Code(s): I48.92 - Unspecified atrial flutter (5) Hypertension: Status: Chronic Code(s): I10 - Essential (primary) hypertension Qualifiers: Hypertension type: unspecified Qualified Code(s): I10 - Essential (primary) hypertension (6) Diabetes: Status: Chronic Code(s): E11.9 - Type 2 diabetes mellitus without complications Qualifiers: Diabetes mellitus complication status: with other specified complication Diabetes mellitus long term care administrator insulin use: unspecified fdc insulin use status Diabetes mellitus type: other specified (including KEVIN) Qualified Code(s): E13.69 - Other specified diabetes mellitus with other specified complication (7) Hyperlipidemia: Status: Chronic Code(s): E78.5 - Hyperlipidemia, unspecified Qualifiers: Hyperlipidemia type: unspecified Qualified Code(s): E78.5 - Hyperlipidemia, unspecified Meds Home Medications and Allergies Home Medications Medication Instructions Recorded Confirmed Type aspirin 81 mg tablet,delayed 81 mg PO DAILY 09/16/22 08/29/23 History release blood sugar diagnostic (Blood 09/16/22 08/29/23 History Glucose Test strips) blood-glucose meter (Blood Glucose 09/16/22 08/29/23 History Monitoring kit) lancets 30 gauge and blood glucose 09/16/22 08/29/23 History strips combo pack lisinopril 20 mg tablet 20 mg PO BID #180 tabs 07/04/23 08/29/23 Rx atorvastatin 10 mg tablet 10 mg PO DAILY 08/06/23 08/29/23 History dapagliflozin propanediol 10 mg 10 mg PO DAILY 08/06/23 08/29/23 History tablet (Farxiga) metformin 1,000 mg tablet 1,000 mg PO BIDWMEAL 08/06/23 08/29/23 History semaglutide 0.25 mg or 0.5 mg (2 0.25 mg SQ WEEKLY Diabetes 08/06/23 08/29/23 History mg/3 mL) subcutaneous pen injector (Ozempic) furosemide 20 mg tablet 20 mg PO DAILY 30 days #30 tabs 08/08/23 08/29/23 Rx rivaroxaban 20 mg tablet (Xarelto) 20 mg PO QPMWITHMEAL Blood 08/15/23 08/29/23 Rx thinner/afib #90 tabs amiodarone 200 mg tablet 400 mg (2 x 200 mg) PO BID 30 days 08/28/23 08/29/23 Rx #120 tabs metoprolol succinate 100 mg 50 mg (1/2 x 100 mg) PO BID 30 08/28/23 08/29/23 Rx tablet,extended release 24 hr days #0 tabs New Prescriptions to Start Prescriptions: amiodarone Darryl Titus Allergies Allergy/AdvReac Type Severity Reaction Status Date / Time No Known Allergies Allergy Verified 08/29/23 09:36 Discharge Plan Disposition Patient Disposition: Home, Self-Care Condition: Fair Follow up Plan Follow up with: Chet Sandhu DO [Primary Care Provider] - 08/31/23 2:00 pm (AT [facility] ) Yonathan Orr MD [Staff Physician] - 09/11/23 2:45 pm Prescriptions/Medication Reconciliation: New amiodarone 200 mg Tablet 400 mg PO BID 30 Days Qty: 120 0RF Continued Xarelto 20 mg tablet 20 mg PO QPMWITHMEAL Qty: 90 3RF lisinopril 20 mg tablet 20 mg PO BID Qty: 180 3RF (DME) Blood Glucose Test Strip See Rx Instructions MISCELLANEOUS Rx Instructions: bid aspirin 81 mg tablet,delayed release (DR/EC) 81 mg PO DAILY (DME) blood-glucose meter [Blood Glucose Monitoring] Kit See Rx Instructions MISCELLANEOUS Rx Instructions: bid (DME) lancets-blood glucose strips 30 gauge combo pack See Rx Instructions MISCELLANEOUS Rx Instructions: As directed atorvastatin 10 mg tablet 10 mg PO DAILY Patient Comments: TAKE ONE TABLET BY MOUTH EVERY DAY dapagliflozin propanediol [Farxiga] 10 mg tablet 10 mg PO DAILY Patient Comments: TAKE ONE TABLET BY MOUTH EVERY DAY FOR diabetes metformin 1,000 mg tablet 1,000 mg PO BIDWMEAL Ozempic 0.25 mg or 0.5 mg (2 mg/3 mL) pen injector 0.25 mg SQ WEEKLY furosemide 20 mg Tablet 20 mg PO DAILY 30 Days Qty: 30 0RF Changed metoprolol succinate 100 mg tablet extended release 24 hr 50 mg PO BID 30 Days Qty: 0 0RF Discontinued diltiazem HCl [Cartia XT] 120 mg capsule,extended release 24hr 120 mg PO DAILY Patient Comments: TAKE ONE CAPSULE BY MOUTH EVERY DAY digoxin 125 mcg (0.125 mg) tablet 125 mg PO DAILY Patient Comments: TAKE ONE TABLET BY MOUTH EVERY DAY Problem Reconciliation Problems Reviewed?: Yes Patient Discharge Instructions ACTIVITY: Continue current activity DIET: continue same diet Patient Instructions: Atrial Flutter, DI for Atrial Flutter Providers Primary Care Provider: Chet Sandhu Admit Provider: Mumtaz Pope Attending Provider: Mumtaz Pope
--- NOTE | 2023-08-28 13:24 | HMH.PHAINT1 ---
Pharmacy Intervention Comments: DISCHARGE MEDICATION COUNSELING WAS PROVIDED TO PATIENT AND FAMILY MEMEBER ON THE FOLLOWING MEDICATIONS: AMIODARONE, THE DOSE CHANGE FOR METOPROLOL, AND TO STOP TAKING THE DIGOXIN AND DILTIAZEM. INDICATIONS AND POSSIBLE SIDE EFFECTS WERE DISCUSSED, ALL QUESTIONS WERE ANSWERED AND BOTH THE PATIENT AND FAMILY MEMBER VERBALIZED UNDERSTANDING.
--- NOTE | 2023-08-29 14:56 | CARE MANAGER ---
Called and spoke to patient regarding recent discharge. Patient stated that he has made medication changes prescribed at discharge. Patient was aware of scheduled f/u appts and had no questions/concerns at time of call.
== END 2023-08-28 14:25 | disposition home or self-care (01) ==
LOC: ER 04:41 → 2ND 06:46
PROVIDERS: Internal Medicine Adolescent Medicine; Nurse Practitioner Family; Admitting Provider Internal Medicine; Emergency Provider Emergency Medicine; PCP Internal Medicine; Visit Provider Internal Medicine
DX: I47.29 Other ventricular tachycardia (principal); Z87.891 Personal history of nicotine dependence; Z79.899 Other long term (current) drug therapy; E11.59 Type 2 diabetes mellitus with other circulatory complications; I48.0 Paroxysmal atrial fibrillation; I10 Essential (primary) hypertension; E78.5 Hyperlipidemia, unspecified; Z79.84 Long term (current) use of oral hypoglycemic drugs; E55.9 Vitamin D deficiency, unspecified; Z79.01 Long term (current) use of anticoagulants
CPT/HCPCS: 36415; 71045; 80053; 82962; 83036; 83735; 84439; 84443; 84484; 85025; 85610; 85730; 93005; 99285; G0378; J0282; J7060

== ENCOUNTER 2023-09-11 15:45 | Outpatient (CLI) | payer BC, SELFPAY ==
[2023-09-11 17:00] LABS: Basophils # 0.1 K/mm3 (0-0.2); Basophils % 0.7 % (0.1-2.0); Eosinophils # 0.3 K/mm3 (0.0-0.4); Eosinophils % 3.7 % (0.1-12.0); Hematocrit 47.2 % (42.0-52.0); Hemoglobin 15.3 g/dL (14.1-18.0); Lymphocytes # 2.1 K/mm3 (0.7-4.5); Mean Corpuscular HGB Conc 32.4 g/dL (31.8-35.4); Mean Corpuscular Hemoglobin 30.2 pg (27.0-31.2); Mean Corpuscular Volume 93.3 fl (80-94); Mean Platelet Volume 8.1 fl (7.4-10.4); Monocytes # 0.7 K/mm3 (0.1-1.0); Monocytes % 8.8 % (1.7-9.3); Neutrophils # 4.6 K/mm3 (1.8-7.8); Neutrophils % 59.8 % (37.0-80.0); Platelet Count 215 K/mm3 (142-424); Red Blood Count 5.06 M/mm3 (4.60-6.20); Red Cell Distribution Width 13.6 % (11.5-17.5); White Blood Count 7.6 K/mm3 (4.8-10.8)
[2023-09-11 17:27] LABS: Alanine Aminotransferase 86 U/L (12-78); Albumin Level 4.6 g/dl (3.5-5.0); Alkaline Phosphatase 49 U/L (38-126); Anion Gap 14.3 mEq/L (5-15); Aspartate Amino Transferase 58 U/L (17-59); Bilirubin,Direct 0.2 mg/dl (0.0-0.4); Bilirubin,Indirect 0.4 mg/dL (0.0-0.9); Bilirubin,Total 0.6 mg/dl (0.2-1.3); Bilirubin,Unconjugated 0.5 mg/dL (0.0-1.1); Blood Urea Nitrogen 22 mg/dl (9-20); Calcium 9.8 mg/dl (8.4-10.2); Carbon Dioxide 28 mmol/L (22.0-30.0); Chloride 98 mmol/L (98-107); Chol/HDL Ratio 4.3 (1-3.5); Cholesterol 173 mg/dl (140-200); Estimated Glomerular Filt Rate 61 ml/min (>60); GFR (African American) 74 ML/MIN (>60); Glucose 231 mg/dl (74-100); HDL Cholesterol 40 mg/dl (40-60); Magnesium 1.7 mg/dl (1.6-2.3); Potassium 4.3 mmoL/L (3.5-5.1); Sodium 136 mmol/L (136-145); Triglycerides 320 mg/dl (30-150); VLDL Cholesterol 64 mg/dL (0-40)
[2023-09-11 17:39] LABS: Direct LDL Cholesterol 91.29 mg/dL (100-129)
[2023-09-11 17:45] LABS: Free T4 (Free Thyroxine) 1.26 ng/dl (0.78-2.19)
[2023-09-11 17:59] LABS: Thyroid Stimulating Hormone 3.83 uIU/mL (0.465-4.68)
== END 2023-09-11 23:59 | disposition home or self-care (01) ==
LOC: LAB 15:45
PROVIDERS: PCP Internal Medicine; Visit Provider Internal Medicine
DX: I48.0 Paroxysmal atrial fibrillation (principal); I10 Essential (primary) hypertension; E11.9 Type 2 diabetes mellitus without complications; E78.5 Hyperlipidemia, unspecified; Z79.84 Long term (current) use of oral hypoglycemic drugs; Z79.85 Long-term (current) use of injectable non-insulin antidiabetic drugs; Z87.891 Personal history of nicotine dependence
CPT/HCPCS: 36415; 80048; 80061; 80076; 83735; 84439; 84443; 85025

== ENCOUNTER 2023-11-01 05:48 | Emergency (ER) | payer BC, SELFPAY ==
[2023-11-01 05:50] VITALS: BP 121/74; PULSE 72; RESP 16; TEMP 36.7; O2SAT 98; BMI 31.7
--- NOTE | 2023-11-01 06:11 | ED_ITS ---
Discharge Plan Disposition Patient Disposition: Home, Self-Care Condition: Good Prescriptions Prescriptions: No Action atorvastatin 10 mg tablet 10 mg PO HS Patient Comments: TAKE ONE TABLET BY MOUTH EVERY DAY amiodarone 200 mg tablet 200 mg PO BID Patient Comments: TAKE TWO TABLETS BY MOUTH TWICE DAILY metformin 1,000 mg tablet 1,000 mg PO BIDWMEAL Patient Comments: TAKE ONE TABLET BY MOUTH TWICE DAILY with meals FOR diabetes furosemide 20 mg tablet 20 mg PO DAILY Patient Comments: TAKE ONE TABLET BY MOUTH EVERY DAY lisinopril 40 mg tablet 20 mg PO BID Patient Comments: TAKE 1/2 TABLET BY MOUTH TWICE DAILY Xarelto 20 mg tablet 20 mg PO DAILY Patient Comments: TAKE ONE TABLET BY MOUTH EVERY EVENING with meal FOR blood thinner/afib dapagliflozin propanediol [Farxiga] 10 mg tablet 10 mg PO DAILY Patient Comments: TAKE ONE TABLET BY MOUTH EVERY DAY FOR diabetes Ozempic 0.25 mg or 0.5 mg (2 mg/3 mL) pen injector 0.5 mg SQ WEEKLY Patient Comments: INJECT 0.5MG SUBCUTANEOUSLY ONCE WEEKLY as directed Referrals Follow up/Referrals: Chet Sandhu DO [Primary Care Provider] - See instructions Activity Restrictions/Add. Instructions Additional Instructions/Restrictions: You were evaluated in the emergency department today. Please limit strenuous activity. No heavy lifting. Apply compression if you start to notice oozing from the site. Follow-up closely with the provider who performed your procedure. Return to the emergency department for new or worsening symptoms. Clinical Impressions Clinical Impression: Post-op bleeding Instructions Patient Instructions: DI for Post-Surgical Bleeding Discharge ED Provider: Cristina Liriano General Adult HPI <David Broussard MD - Last Filed: 11/01/23 06:55> General Chief complaint: Wound/Laceration Stated complaint: heart ablasion through groin, incision is bleeding Time Seen by Provider: 11/01/23 05:50 Mode of Arrival: Family Vehicle Source of Information: Patient Limitations: No Limitations Description of Symptoms (Recalled from ER Triage Doc. by RN): 63 yo male presents with cc of right groin bleeding. Ablation performed at [facility] yesterday for his persistent atrial fib/states minimal bleeding en route to his and throughout night till early this morning when he noticed copious bleeding and became concerned. Afebrile. VSS. Patient is a&ox4. History of Present Illness HPI narrative: 63-year-old male with history of A-fib/atrial flutter presents with bleeding from the right groin cath site. He was seen at [facility] yesterday and had a ablation performed. He reports he had no significant bleeding when he went to sleep but when he awoke to his bandage was soaked through. He presents for further evaluation. He is on Xarelto. Related Data Home Medications Medication Instructions Recorded Confirmed amiodarone 200 mg tablet 200 mg PO BID 11/01/23 11/01/23 atorvastatin 10 mg tablet 10 mg PO HS 11/01/23 11/01/23 dapagliflozin propanediol 10 mg 10 mg PO DAILY 11/01/23 11/01/23 tablet (Farxiga) furosemide 20 mg tablet 20 mg PO DAILY 11/01/23 11/01/23 lisinopril 40 mg tablet 20 mg PO BID 11/01/23 11/01/23 metformin 1,000 mg tablet 1,000 mg PO BIDWMEAL 11/01/23 11/01/23 rivaroxaban 20 mg tablet (Xarelto) 20 mg PO DAILY 11/01/23 11/01/23 semaglutide 0.25 mg or 0.5 mg (2 0.5 mg SQ WEEKLY 11/01/23 11/01/23 mg/3 mL) subcutaneous pen injector (Ozempic) Allergies Allergy/AdvReac Type Severity Reaction Status Date / Time No Known Allergies Allergy Verified 10/16/23 13:03 [facility] <David Broussard MD - Last Filed: 11/01/23 06:55> [facility] Disclaimer: The information contained in this section may have been updated after the patient was seen, as this information can be updated by other users. Medical History Atrial flutter Anal fistula Hyperlipidemia Hypertension Vitamin D deficiency (~12/06/17) Diabetes (~12/06/17) Family History Other Family history of acute congestive heart failure Family history of diabetes mellitus type II Family history of hyperlipidemia Family history of hypertension Family history of myocardial infarction Family history of stroke Social History (Updated 11/01/23 @ 06:12 by Jorge Tiwari RN) Smoking Status: Former smoker tobacco type: cigarettes packs per day: 1 and cigars years smoked: 25 alcohol intake: current alcohol intake frequency: a few times a month substance use type: denies use current occupational status: employed Travel in the last 8 weeks: None <David Broussard MD - Last Filed: 11/01/23 06:55> ROS Obtained: Yes All systems reviewed & no additional complaints except as documented Physical Exam <David Broussard MD - Last Filed: 11/01/23 06:55> General General appearance: alert and in no apparent distress Head Head exam: atraumatic and normocephalic Eye Eye exam: Present normal appearance, PERRL and EOMI ENT ENT exam: Present normal oropharynx and normal external ear exam Neck Neck exam: Present normal inspection and full ROM Chest Chest inspection: Present normal inspection and symmetric chest wall rise; Absent tenderness Respiratory Respiratory exam: Present normal lung sounds bilaterally; Absent respiratory distress Cardiovascular Cardiovascular exam: Present regular rate and normal rhythm Abdominal Exam Abdominal exam: Present soft; Absent distention, tenderness or guarding Extremities Exam Extremities exam: Present other (Small amount of dark oozing noted from puncture site, no fluctuance, no surrounding hematoma or discoloration, no arterial or pulsatile bleeding.); Absent edema or joint swelling Back Exam Back exam: Present normal inspection; Absent tenderness Neurological Exam Neurological exam: Present alert and oriented X3; Absent motor sensory deficit Psychiatric Psychiatric exam: Present normal affect and normal mood Skin Skin exam: Present warm, dry and normal color Lymphatic Lymphatic Findings: no adenopathy Medical Decision Making <David Broussard MD - Last Filed: 11/01/23 06:55> Medical Records Medical records reviewed: Yes I reviewed the patient's medical records. Kenneth Inquiry Pt receiving controlled substance: No Kenneth was queried for this patient: No Vital Signs: 11/01/23 05:50 11/01/23 06:30 11/01/23 07:00 Temperature 98.0 F Temperature Source Oral Pulse Rate 64 68 Pulse Rate [Right Brachial] 72 Respiratory Rate 16 Blood Pressure 111/71 119/73 Blood Pressure [Right Arm] 121/74 Blood Pressure Mean 84 88 Blood Pressure Mean [Right Arm] 89 Blood Pressure Source [Right Arm] Automatic Cuff Blood Pressure Position [Right Arm] Sitting 02 Sat by Pulse Oximetry 98 97 96 Oxygen Delivery Method Room Air Lab Data Lab results reviewed: Yes I reviewed the patient's lab results. Lab Results 11/01/23 06:00: WBC 11.6 H, RBC 5.20, Hgb 15.7, Hct 48.8, MCV 93.9, MCH 30.3, MCHC 32.2, RDW 14.1, Plt Count 218, MPV 7.9, Neut % (Auto) 79.5, Lymph % (Auto) 11.9, Churchill % (Auto) 8.1, Eos % (Auto) 0.1, Baso % (Auto) 0.3, Neut # (Auto) 9.2 H, Lymph # (Auto) 1.4, Churchill # (Auto) 0.9, Eos # (Auto) 0.0, Baso # (Auto) 0.0, P T 13.7 H, INR 1.29 H, APTT 31.3 H, Sodium 136, Potassium 4.8, Chloride 97 L, Carbon Dioxide 28, Anion Gap 15.8 H, BUN 26 H, Creatinine 1.10, Estimated Creat Clear 95, Estimated GFR 68, Est GFR ( Amer) 82, Glucose 212 H, Calcium 9.6, Total Bilirubin 2.2 H, AST 153 H, ALT 75, Alkaline Phosphatase 35 L, Total Protein 8.1, Albumin 4.9, Globulin 3.2, Albumin/Globulin Ratio 1.5 11/01/23 06:00 11/01/23 06:00 Orders (Tests/Meds): ORDERS Category Date Time Status CBC w/Auto Diff [Complete Blood Count Auto Diff] Stat Lab 11/01/23 06:00 Completed CMP [Comprehensive Metabolic Panel] Stat Lab 11/01/23 06:00 Completed INR [Prothrombin Time INR] Stat Lab 11/01/23 06:00 Completed PTT [Activated Partial Thrombo Time] Stat Lab 11/01/23 06:00 Completed Medical Decision Narrative: 63-year-old male with history of A-fib/a flutter status post ablation at [facility] yesterday presents with bleeding from his right groin catheterization site.. History was obtained interactive discussion with patient, family. On arrival, patient is [afebrile, hemodynamically stable, satting appropriately, alert, oriented x4, GCS 15], moving all extremities spontaneously. Full physical exam performed and significant for minimal venous oozing from groin site without secondary signs of hemorrhage. Differential includes but is not limited to coagulopathy, acute blood loss anemia, hematoma, pseudoaneurysm, retroperitoneal bleeding Workup initiated including CBC CMP PT/INR PTT. A pressure dressing was placed over the groin insertion site. Labs interpreted by me and show minimal leukocytosis, normal hemoglobin, no actionable results. Patient placed in ED observation status for reassessment of bleeding. At this time care handed off to oncoming physician. <Cristina Liriano, DO - Last Filed: 11/01/23 07:43> Vital Signs: 11/01/23 05:50 11/01/23 06:30 11/01/23 07:00 Temperature 98.0 F Temperature Source Oral Pulse Rate 64 68 Pulse Rate [Right Brachial] 72 Respiratory Rate 16 Blood Pressure 111/71 119/73 Blood Pressure [Right Arm] 121/74 Blood Pressure Mean 84 88 Blood Pressure Mean [Right Arm] 89 Blood Pressure Source [Right Arm] Automatic Cuff Blood Pressure Position [Right Arm] Sitting 02 Sat by Pulse Oximetry 98 97 96 Oxygen Delivery Method Room Air Lab Data Lab Results 11/01/23 06:00: WBC 11.6 H, RBC 5.20, Hgb 15.7, Hct 48.8, MCV 93.9, MCH 30.3, MCHC 32.2, RDW 14.1, Plt Count 218, MPV 7.9, Neut % (Auto) 79.5, Lymph % (Auto) 11.9, Churchill % (Auto) 8.1, Eos % (Auto) 0.1, Baso % (Auto) 0.3, Neut # (Auto) 9.2 H, Lymph # (Auto) 1.4, Churchill # (Auto) 0.9, Eos # (Auto) 0.0, Baso # (Auto) 0.0, P T 13.7 H, INR 1.29 H, APTT 31.3 H, Sodium 136, Potassium 4.8, Chloride 97 L, Carbon Dioxide 28, Anion Gap 15.8 H, BUN 26 H, Creatinine 1.10, Estimated Creat Clear 95, Estimated GFR 68, Est GFR ( Amer) 82, Glucose 212 H, Calcium 9.6, Total Bilirubin 2.2 H, AST 153 H, ALT 75, Alkaline Phosphatase 35 L, Total Protein 8.1, Albumin 4.9, Globulin 3.2, Albumin/Globulin Ratio 1.5 Orders (Tests/Meds): ORDERS Category Date Time Status CBC w/Auto Diff [Complete Blood Count Auto Diff] Stat Lab 11/01/23 06:00 Completed CMP [Comprehensive Metabolic Panel] Stat Lab 11/01/23 06:00 Completed INR [Prothrombin Time INR] Stat Lab 11/01/23 06:00 Completed PTT [Activated Partial Thrombo Time] Stat Lab 11/01/23 06:00 Completed Medical Decision Narrative: 63-year-old male with history of A-fib/a flutter status post ablation at [facility] yesterday presents with bleeding from his right groin catheterization site.. History was obtained interactive discussion with patient, family. On arrival, patient is [afebrile, hemodynamically stable, satting appropriately, alert, oriented x4, GCS 15], moving all extremities spontaneously. Full physical exam performed and significant for minimal venous oozing from groin site without secondary signs of hemorrhage. Differential includes but is not limited to coagulopathy, acute blood loss anemia, hematoma, pseudoaneurysm, retroperitoneal bleeding Workup initiated including CBC CMP PT/INR PTT. A pressure dressing was placed over the groin insertion site. Labs interpreted by me and show minimal leukocytosis, normal hemoglobin, no actionable results. Patient placed in ED observation status for reassessment of bleeding. At this time care handed off to oncoming physician. DO Heri: I assumed care of the patient at 700. At 7:45 AM, the patient continues to have no bleeding. His wound is hemostatic. Labs are reassuring. Given that his oozing has stopped and vitals, labs, and exam are stable, I feel the patient is appropriate for discharge home with instructions for supportive management and close follow-up. Strict return precautions were given. Procedures <David Broussard MD - Last Filed: 11/01/23 06:55> Risk/Benefits of Procedure(s) Were Explained: Yes Critical Care <David Broussard MD - Last Filed: 11/01/23 06:55> Critical Care Time Critical Care Time: No
--- NOTE | 2023-11-01 06:12 | PC.NURSE ---
Patient having no active bleeding from right groin access site while assessing with Attending ER. Replaced saturated gauze with fresh gauze from previous bleeding. Sandbag placed at site while monitoring.
[2023-11-01 06:20] LABS: Basophils % 0.3 % (0.1-2.0); Eosinophils % 0.1 % (0.1-12.0); Hematocrit 48.8 % (42.0-52.0); Hemoglobin 15.7 g/dL (14.1-18.0); Lymphocytes # 1.4 K/mm3 (0.7-4.5); Lymphocytes % 11.9 % (10-50); Mean Corpuscular HGB Conc 32.2 g/dL (31.8-35.4); Mean Corpuscular Hemoglobin 30.3 pg (27.0-31.2); Mean Corpuscular Volume 93.9 fl (80-94); Mean Platelet Volume 7.9 fl (7.4-10.4); Monocytes # 0.9 K/mm3 (0.1-1.0); Monocytes % 8.1 % (1.7-9.3); Neutrophils # 9.2 K/mm3 (1.8-7.8); Neutrophils % 79.5 % (37.0-80.0); Platelet Count 218 K/mm3 (142-424); Red Cell Distribution Width 14.1 % (11.5-17.5); White Blood Count 11.6 K/mm3 (4.8-10.8)
[2023-11-01 06:24] LABS: Alanine Aminotransferase 75 U/L (12-78); Albumin Level 4.9 g/dl (3.5-5.0); Albumin/Globulin Ratio 1.5 (1.1-1.8); Alkaline Phosphatase 35 U/L (38-126); Anion Gap 15.8 mEq/L (5-15); Aspartate Amino Transferase 153 U/L (17-59); Bilirubin,Total 2.2 mg/dl (0.2-1.3); Blood Urea Nitrogen 26 mg/dl (9-20); Calcium 9.6 mg/dl (8.4-10.2); Carbon Dioxide 28 mmol/L (22.0-30.0); Chloride 97 mmol/L (98-107); Creatinine Clearance Estimated 95 mL/min (50-200); Estimated Glomerular Filt Rate 68 ml/min (>60); GFR (African American) 82 ML/MIN (>60); Globulin 3.2 g/dL (1.3-3.2); Glucose 212 mg/dl (74-100); Potassium 4.8 mmoL/L (3.5-5.1); Sodium 136 mmol/L (136-145); Total Protein,Serum 8.1 g/dl (6.3-8.2)
[2023-11-01 06:26] LABS: Activated Partial Thrombo Time 31.3 seconds (22.8-30.6); INR 1.29 (0.9-1.1); Prothrombin Time 13.7 seconds (10.1-12.5)
[2023-11-01 06:30] VITALS: BP 111/71; PULSE 64; O2SAT 97
--- NOTE | 2023-11-01 06:56 | PC.NURSE ---
After 15 minutes of pressure patient had small amount of bleeding through 3 2x2 gauze. This was reported to Attending, Dr. Broussard
[2023-11-01 07:00] VITALS: BP 119/73; PULSE 68; O2SAT 96
--- NOTE | 2023-11-01 08:05 | PC.NURSE ---
no additional bleeding noted to groin site.
[2023-11-01 08:06] VITALS: BP 131/81; PULSE 62; RESP 18; TEMP 36.7; O2SAT 99
== END 2023-11-01 08:15 | disposition home or self-care (01) ==
PROVIDERS: Emergency Medicine; Emergency Provider Emergency Medicine; PCP Internal Medicine
DX: L76.22 Postprocedural hemorrhage of skin and subcutaneous tissue following other procedure (principal); E11.65 Type 2 diabetes mellitus with hyperglycemia; Z86.79 Personal history of other diseases of the circulatory system; I48.91 Unspecified atrial fibrillation; I10 Essential (primary) hypertension; E78.5 Hyperlipidemia, unspecified; I48.92 Unspecified atrial flutter; Z79.01 Long term (current) use of anticoagulants; Z79.84 Long term (current) use of oral hypoglycemic drugs; Z79.85 Long-term (current) use of injectable non-insulin antidiabetic drugs
CPT/HCPCS: 80053; 85025; 85610; 85730; 99283

== ENCOUNTER 2024-02-22 16:57 | Outpatient (CLI) | payer BC, SELFPAY ==
[2024-02-22 16:55] LABS: Hemoglobin A1C 7.7 % (4.0-6.0)
[2024-02-22 18:22] LABS: Chloride 102 mmol/L (98-107); Potassium 4.1 mmoL/L (3.5-5.1); Sodium 137 mmol/L (136-145)
[2024-02-22 18:24] LABS: Alanine Aminotransferase 58 U/L (12-78); Alkaline Phosphatase 55 U/L (38-126); Anion Gap 13.1 mEq/L (5-15); Aspartate Amino Transferase 43 U/L (17-59); Bilirubin,Total 0.8 mg/dl (0.2-1.3); Blood Urea Nitrogen 15 mg/dl (9-20); Carbon Dioxide 26 mmol/L (22.0-30.0); Estimated Glomerular Filt Rate 85 ml/min (>60); GFR (African American) 103 ML/MIN (>60)
[2024-02-22 18:25] LABS: Albumin/Globulin Ratio 1.9 (1.1-1.8); Calcium 9.6 mg/dl (8.4-10.2); Chol/HDL Ratio 3.4 (1-3.5); Cholesterol 160 mg/dl (140-200); Globulin 2.6 g/dL (1.3-3.2); Glucose 129 mg/dl (74-100); HDL Cholesterol 47 mg/dl (40-60); Magnesium 2.1 mg/dl (1.6-2.3); Total Protein,Serum 7.6 g/dl (6.3-8.2); Triglycerides 192 mg/dl (30-150); VLDL Cholesterol 38 mg/dL (0-40)
[2024-02-22 18:36] LABS: Direct LDL Cholesterol 84.28 mg/dL (100-129)
[2024-02-23 09:02] LABS: HIV (1&2) Antibody Rapid NONREACTIVE (NONREACTIVE)
[2024-02-24 09:08] LABS: HCV Ab Non Reactive (Non Reactive)
== END 2024-02-22 23:59 | disposition home or self-care (01) ==
LOC: LAB.DROPOF 16:57
PROVIDERS: PCP Nurse Practitioner Family; Visit Provider Nurse Practitioner Family
DX: E11.59 Type 2 diabetes mellitus with other circulatory complications (principal); E78.5 Hyperlipidemia, unspecified; B34.9 Viral infection, unspecified; Z79.84 Long term (current) use of oral hypoglycemic drugs
CPT/HCPCS: 80053; 80061; 83036; 83735; 86803; 87389

== ENCOUNTER → 2024-04-16 13:43 | Outpatient (CLI) | payer BC, SELFPAY | LOC: SL 13:44 | PROVIDERS: PCP Nurse Practitioner Family; Visit Provider Nurse Practitioner Family | DX: I48.0 Paroxysmal atrial fibrillation (principal) | CPT/HCPCS: G0399 ==

== ENCOUNTER 2024-08-06 16:43 | Outpatient (CLI) | payer BC, SELFPAY ==
[2024-08-06 13:39] LABS: Albumin Level 4.9 g/dl (3.5-5.0)
[2024-08-06 13:40] LABS: Chloride 100 mmol/L (98-107); Potassium 4.6 mmoL/L (3.5-5.1); Sodium 134 mmol/L (136-145)
[2024-08-06 13:42] LABS: Alanine Aminotransferase 85 U/L (12-78); Alkaline Phosphatase 67 U/L (38-126); Anion Gap 15.6 mEq/L (5-15); Aspartate Amino Transferase 51 U/L (17-59); Bilirubin,Total 0.7 mg/dl (0.2-1.3); Blood Urea Nitrogen 18 mg/dl (9-20); Carbon Dioxide 23 mmol/L (22.0-30.0); Estimated Glomerular Filt Rate 75 ml/min (>60); GFR (African American) 91 ML/MIN (>60)
[2024-08-06 13:43] LABS: Albumin/Globulin Ratio 2.3 (1.1-1.8); Calcium 9.1 mg/dl (8.4-10.2); Cholesterol 159 mg/dl (140-200); Globulin 2.1 g/dL (1.3-3.2); Glucose 390 mg/dl (74-100); HDL Cholesterol 40 mg/dl (40-60); Magnesium 1.7 mg/dl (1.6-2.3); Triglycerides 253 mg/dl (30-150); VLDL Cholesterol 51 mg/dL (0-40)
[2024-08-06 13:54] LABS: Direct LDL Cholesterol 93.48 mg/dL (100-129)
[2024-08-06 14:58] LABS: Creatinine,Urine Random 50 mg/dL (Not Estab.)
[2024-08-06 15:01] LABS: Hemoglobin A1C 8.1 % (4.0-6.0); Microalbumin < 6.000 mg/L (0-16.7)
[2024-08-06 15:24] LABS: Prostate Specific Ag Screen 0.5 ng/ml (0.0-4.0)
[2024-08-10 23:16] LABS: Free Testosterone (Direct) 4.9 pg/mL (6.6-18.1); Testosterone, Total, LC/MS 283.5 ng/dL (264.0-916.0)
== END 2024-08-06 23:59 | disposition home or self-care (01) ==
LOC: LAB.DROPOF 16:43
PROVIDERS: PCP Nurse Practitioner Family; Visit Provider Nurse Practitioner Family
DX: Z12.5 Encounter for screening for malignant neoplasm of prostate (principal); I10 Essential (primary) hypertension; N52.9 Male erectile dysfunction, unspecified; E78.5 Hyperlipidemia, unspecified; E11.59 Type 2 diabetes mellitus with other circulatory complications; Z79.84 Long term (current) use of oral hypoglycemic drugs; Z79.85 Long-term (current) use of injectable non-insulin antidiabetic drugs; Z87.891 Personal history of nicotine dependence
CPT/HCPCS: 80053; 80061; 82043; 82570; 83036; 83735; 84402; 84403; G0103